=== PATIENT | female | born 1945 | race Two or more races ===

== ENCOUNTER → 2016-12-07 | Emergency (ER) | payer OTHER ==
[~2016-12-07] MED LIST: ONDANSETRON 4 MG/2 ML VIAL IVPUSH ONE; ONDANSETRON 4 MG/2 ML VIAL ONE; PANTOPRAZOLE 40 MG TABLET (FP) ONE; PANTOPRAZOLE 40 MG TABLET (FP) PO ONE; SODIUM CHLORIDE 0.9% 1000 ML INFUS.BAG IV ONE
[2016-12-07 09:46] VITALS: BMI 36.0
[2016-12-07 09:57] LABS: BASOPHIL 0.6 % (0-2.0); EOSINOPHIL 4.7 % (0-4.5); MCH 27.8 pg (25.7-33.7); MCHC 32.6 g/dl (32.0-36.0); MEAN CELL VOLUME 85.1 fl (80-96); MEAN PLT VOLUME 8.3 fl (7.5-11.1); NEUTROPHILS 61.3 % (42.8-82.8); PLATELET COUNT 213 K/MM3 (134-434); RDW 15.6 % (11.6-15.6); WHITE BLOOD COUNT 5.9 K/mm3 (4.0-10.0)
[2016-12-07 10:22] LABS: URINE APPEARANCE CLEAR; URINE BILIRUBIN NEGATIVE (NEGATIVE); URINE BLOOD NEGATIVE (NEGATIVE); URINE COLOR YELLOW; URINE GLUCOSE (UA) NEGATIVE (NEGATIVE); URINE KETONE NEGATIVE (NEGATIVE); URINE LEUK ESTERASE NEGATIVE (NEGATIVE); URINE NITRITE NEGATIVE (NEGATIVE); URINE PROTEIN NEGATIVE (NEGATIVE); URINE UROBILINOGEN NEGATIVE E.U./dl (0.2-1.0)
[2016-12-07 10:30] LABS: ALBUMIN 3.3 g/dl (3.4-5.0); ANION GAP 8 (8-16); CALCIUM 8.5 mg/dL (8.5-10.1); CO2 28 mmol/L (21-32); GLUCOSE,RANDOM 109 mg/dL (74-106); SGOT/AST 20 U/L (15-37); SGPT/ALT 18 U/L (12-78)
--- NOTE | 2016-12-07 10:31 | PDOC ---
History of Present Illness - General Chief Complaint: Pain Stated Complaint: ABD PAIN Time Seen by Provider: 12/07/16 10:13 - History of Present Illness Initial Comments: 12/07/16 10:49 Patient is a 71-year-old female with past medical history of non-insulin- dependent diabetes, hypertension, hyperlipidemia, GERD, depression, insomnia, history of arrhythmia on Eliquis, s/p gastric bypass surgery, who presents to the emergency department today complaining of abdominal pain and diarrhea. Patient states that she had diarrhea starting approximately 2 weeks ago. She then traveled to the [facility] and returned on Monday. She states that she is still having dark diarrhea and describes it as black in nature. Admits to nausea, cramping pain, decreased appetite. Denies fevers, chills, weakness, malaise, shortness of breath, chest pain, palpitations, dysuria and hematuria. Past History - Travel Traveled outside of the country in the last 30 days: Yes If so, where?: [facility] Close contact w/someone who was outside of country & ill: No - Past Medical History Allergies/Adverse Reactions: Allergies Allergy/AdvReac Type Severity Reaction Status Date / Time morphine Allergy Intermediate Hives Verified 12/07/16 09:46 Home Medications: Ambulatory Orders Metoprolol Tartrate [Lopressor -] 50 mg PO BID 09/13/12 Omeprazole [Prilosec (RX)] 20 mg PO DAILY 09/13/12 Zolpidem Tartrate [Ambien] 10 mg PO HS 09/13/12 Citalopram Hydrobromide [Celexa -] 10 mg PO DAILY 02/05/14 Amlodipine/Valsartan [Exforge 10-320 mg Tablet] 1 tab PO DAILY 06/22/14 Atorvastatin Ca [Lipitor] 20 mg PO HS 06/22/14 Calcium Carbonate/Vitamin D3 [Calcium 500 + Vit D 200 Tablet] 1 each PO DAILY Multivitamins [Multivit ([facility] Formulary)] 1 tab PO DAILY 09/26/14 Apixaban [Eliquis] 5 mg PO BID 02/13/15 Donepezil HCl [Aricept] 10 mg PO HS 02/13/15 Gabapentin [Neurontin] 300 mg PO TID 02/13/15 Cyanocobalamin [Vitamin B12 -] 1,000 mcg PO WEEKLY 03/07/15 Ergocalciferol (Vitamin D2) [Vitamin D] 50,000 unit PO WEEKLY 03/07/15 Acetaminophen [Tylenol] 325 mg PO QID PRN 04/05/16 Sitagliptin Phos/Metformin HCl [Janumet 50-500 mg Tablet] 1 each PO BID Ondansetron [Ondansetron Odt] 4 mg PO Q6H #10 tab.rapdis 12/07/16 Anemia: Yes (MANY YRS AGO) Asthma: Yes (CONTROLLED) Cancer: No Cardiac Disorders: Yes (H/O ARRHYTHMIA?) CVA: Yes (X 2 MANY YRS AGO) COPD: No CHF: No Dementia: No (ON ARICEPT FOR PREVENTION) Diabetes: Yes (X 4-5 YRS) GI Disorders: Yes (GERD) Disorders: No HTN: Yes Hypercholesterolemia: Yes Liver Disease: No Psychiatric Problems: Yes (depression,insomnia) Seizures: No Thyroid Disease: No - Surgical History Abdominal Surgery: Yes (GASTRIC BYPASS) Appendectomy: Yes Cardiac Surgery: Yes Cholecystectomy: Yes Lung Surgery: No Neurologic Surgery: No Orthopedic Surgery: Yes (RIGHT FOOT SURGERY) - Immunization History Immunization Up to Date: Yes - Psycho/Social/Smoking Cessation Hx Anxiety: No Suicidal Ideation: No Smoking Status: No Smoking History: Never smoked Have you smoked in the past 12 months: No Number of Cigarettes Smoked Daily: 0 Hx Alcohol Use: No Drug/Substance Use Hx: No Substance Use Type: None Hx Substance Use Treatment: No Review of Systems - Review of Systems Able to Perform ROS?: Yes Is the patient limited French proficient: Yes Constitutional: No: Chills, Fever, Malaise, Weakness Respiratory: No: Cough, Shortness of Breath, Wheezing Cardiac (ROS): No: Chest Pain, Lightheadedness, Palpitations ABD/GI: Yes: Abdominal Distended, Diarrhea (dark stool), Nausea, Poor Fluid Intake, Abdominal cramping, Tarry Stools. No: Vomiting : Yes: Frequency. No: Dysuria, Discharge, Hematuria Neurological: No: Headache, Weakness, Unsteady Gait, Dizziness All Other Systems: Reviewed and Negative *Physical Exam - Vital Signs Last Vital Signs Temp Pulse Resp BP Pulse Ox 98.2 F 69 20 150/72 95 12/07/16 09:53 12/07/16 09:45 12/07/16 09:45 12/07/16 09:45 12/07/16 09:45 - Physical Exam General Appearance: Yes: Nourished, Appropriately Dressed, Obese, Other ( sitting on exam bed, AAOx3, breathing easily). No: Apparent Distress Neck: positive: Trachea midline, Supple. negative: Tender, Rigid Respiratory/Chest: positive: Lungs Clear, Normal Breath Sounds. negative: Respiratory Distress, Accessory Muscle Use Cardiovascular: positive: S1, S2 (present), Murmur (2/6 midsystolic murmur loudest at the base), Irregularly Irregular. negative: JVD Gastrointestinal/Abdominal: positive: Tender (TTP LLQ, epigastrium), Soft, Decreased BS, Distended. negative: Organomegaly, Guarding, Rebound Rectal Exam: positive: hemorrhoids (external hemorrhoids) Integumentary: positive: Normal Color, Dry, Warm Neurologic: positive: field education coordinator II-XII NML intact, Fully Oriented, Alert, Normal Mood/ Affect, Normal Response, Motor Strength 09/30 ED Treatment Course - LABORATORY CBC & Chemistry Diagram: 12/07/16 09:50 12/07/16 09:50 - ADDITIONAL ORDERS Additional order review: 12/07/16 09:50 RBC 4.59 MCV 85.1 MCHC 32.6 RDW 15.6 MPV 8.3 Neutrophils % 61.3 Lymphocytes % 26.4 Monocytes % 7.0 Eosinophils % 4.7 H Basophils % 0.6 - Medications Given in the ED: ED Medications Discontinued Medications Generic Name Dose Route Start Last Admin Trade Name Freq PRN Reason Stop Dose Admin Ondansetron HCl 4 mg 12/07/16 09:48 12/07/16 09:55 Zofran Injection IVPUSH 12/07/16 09:49 4 mg NOW ONE Administration Sodium Chloride 1,000 ml 12/07/16 09:48 12/07/16 09:55 Normal Saline - IV 12/07/16 09:49 1,000 ml NOW ONE Administration Medical Decision Making - Medical Decision Making 12/07/16 10:21 Patient is a 71-year-old female with past medical history of non-insulin- dependent diabetes, hypertension, hyperlipidemia, GERD, depression, insomnia, history of arrhythmia on [place] questions, who presents to the emergency department today complaining of abdominal pain and diarrhea. Possible dx include , diverticulitis, gastritis, PUD, travelers diarrhea, viral syndrome 1. CBC, CMP, Lipase, UA, UC 2. EKG 3. Guiac for report of black tarry stool 4. CT with contrast 5. IV fluids, Zofran Re-evaluate 12/07/16 11:09 CT abdomen and pelvis with contrast: No evidence of diverticulitis or acute pathology within the abdomen or pelvis. There is diverticulosis of the colon. 12/07/16 12:38 Patient states that she feels better after the Zofran. All of her lab work is within normal limits. Urine is negative. Troponin was added on which is negative. Most likely this is traveler's diarrhea we will discharge home at this time. Patient is instructed to see a bland diet and follow-up with her primary care doctor tomorrow. She was prescribed Zofran as needed for nausea. Patient understands all discharge instructions and all questions were answered at this time. *DC/Admit/Observation/Transfer Diagnosis at time of Disposition: Travelers' diarrhea - Discharge Dispostion Admit: No - Prescriptions Prescriptions: Ondansetron [Ondansetron Odt] 4 mg PO Q6H #10 tab.rapdis - Referrals Referrals: Yomaira Hernandez MD [Primary Care Provider] - 24 hours - Patient Instructions Printed Discharge Instructions: DI for Diarrhea and Traveler's Diarrhea -- Adult Additional Instructions: Usted tiene diarrea del viajero. [place] puede ocurrir despus de viajar a un pas extranjero. [place] TAC fue negativo hoy. Livia muchos lquidos leora y gatorade. Coma jin dieta suave, incluyendo salsa de manzana de pltanos, arroz y tostadas. Usted puede seb tylenol o motrin segn sea necesario para el dolor. Siga con murray mdico de atencin primaria maana. Vuelva a la [place] si tiene empeoramiento de dolor, fiebre, escalofros, bishnu en las heces, vmitos, o cualquier cambio en bharat sntomas. Print Language: FRENCH Addendum entered and electronically signed by Sharlene Head PA 12/07/16 18: 45: Progress Note - Progress Note Progress Note: EKG: Atrial fibrillation with a rate of 77 bpm, QT 394, Normal axis. T wave inversions in I and AVL no acute ST-T wave elevations
[2016-12-07 10:32] LABS: ALK PHOS 127 U/L (45-117); TOT PROT 6.6 g/dl (6.4-8.2)
[2016-12-07 11:10] LABS: INR 1.04 (0.82-1.09); PROTHROMBIN TIME (PATIENT) 11.5 SEC (9.98-11.88)
--- NOTE | 2016-12-07 11:50 | EKG ---
Test Reason : Blood Pressure : / mmHG Vent. Rate : 077 BPM Atrial Rate : 100 BPM P-R Int : 000 ms QRS Dur : 098 ms QT Int : 394 ms P-R-T Axes : 000 -09 166 degrees QTc Int : 445 ms ATRIAL FLUTTER WITH VARIABLE A-V BLOCK VOLTAGE CRITERIA FOR LEFT VENTRICULAR HYPERTROPHY MARKED ST ABNORMALITY, POSSIBLE INFERIOR SUBENDOCARDIAL INJURY ABNORMAL ECG WHEN COMPARED WITH ECG OF 12-DEC-2015 01:19, Confirmed by ORESTES GRECO MD ([id number]) on 12/07/2016 11:50:02 AM Referred By: Confirmed By:ORESTES GRECO MD
[2016-12-07 12:55] VITALS: BP 130/70; PULSE 82; TEMP 98.3
--- NOTE | 2016-12-07 12:55 | PDOC ---
*Physical Exam - Vital Signs Last Vital Signs Temp Pulse Resp BP Pulse Ox 98.2 F 69 20 150/72 95 12/07/16 09:53 12/07/16 09:45 12/07/16 09:45 12/07/16 09:45 12/07/16 09:45 Heart Score/ECG Review #1 ECG reviewed & interpreted by me at: 12:55 12/07/16 12:55 Twelve-lead EKG was performed and reviewed by me. Afib rate of 77 bpm. The axis is normal. The intervals are normal. There are no ST elevations or depressions. T wave inversions I, aVL. t wave flattening v4-v6 ED Treatment Course - LABORATORY CBC & Chemistry Diagram: 12/07/16 09:50 12/07/16 09:50 - ADDITIONAL ORDERS Additional order review: Laboratory Results 12/07/16 12/07/16 12/07/16 10:32 10:00 09:50 INR Sodium 142 Potassium 4.2 Chloride 106 Carbon Dioxide 28 Anion Gap 8 BUN 11 D Creatinine 1.0 Creat Clearance w eGFR 54.97 Random Glucose 109 H Calcium 8.5 Total Bilirubin 1.0 D AST 20 ALT 18 Alkaline Phosphatase 127 H D Total Protein 6.6 Albumin 3.3 L Lipase 74 Urine Color Yellow Urine Appearance Clear Urine pH 6.0 Urine Protein Negative Urine Glucose (UA) Negative Urine Ketones Negative Urine Blood Negative Urine Nitrite Negative Urine Bilirubin Negative Urine Urobilinogen Negative Ur Leukocyte Esterase Negative Stool Occult Blood Negative 12/07/16 09:50 INR 1.04 Sodium Potassium Chloride Carbon Dioxide Anion Gap BUN Creatinine Creat Clearance w eGFR Random Glucose Calcium Total Bilirubin AST ALT Alkaline Phosphatase Total Protein Albumin Lipase Urine Color Urine Appearance Urine pH Urine Protein Urine Glucose (UA) Urine Ketones Urine Blood Urine Nitrite Urine Bilirubin Urine Urobilinogen Ur Leukocyte Esterase Stool Occult Blood 12/07/16 09:50 RBC 4.59 MCV 85.1 MCHC 32.6 RDW 15.6 MPV 8.3 Neutrophils % 61.3 Lymphocytes % 26.4 Monocytes % 7.0 Eosinophils % 4.7 H Basophils % 0.6 - Medications Given in the ED: ED Medications Discontinued Medications Generic Name Dose Route Start Last Admin Trade Name Freq PRN Reason Stop Dose Admin Ondansetron HCl 4 mg 12/07/16 09:48 12/07/16 09:55 Zofran Injection IVPUSH 12/07/16 09:49 4 mg NOW ONE Administration Pantoprazole Sodium 40 mg 12/07/16 12:43 12/07/16 12:45 Protonix - PO 12/07/16 12:44 40 mg ONCE ONE Administration Sodium Chloride 1,000 ml 12/07/16 09:48 12/07/16 09:55 Normal Saline - IV 12/07/16 09:49 1,000 ml NOW ONE Administration Medical Decision Making - Medical Decision Making 12/07/16 12:54 79 yo F h/o afib, gastric bypass presenting to the ER with a complaint of abdominal pain, diarrhea, dark stools Laboratory Tests 12/07/16 12/07/16 12/07/16 09:50 09:50 10:32 Hgb 12.7 Hct 39.1 BUN 11 D Creatinine 1.0 Stool Occult Blood Negative Pt seen by Midlevel Provider under my direct supervision Pt interviewed and examined Ancillary studies reviewed I agree with plan as outlined by Midlevel Provider 12/07/16 12:55 12/07/16 13:23 EKG with t lateral T wave inversions No trop done Trop added Pt was already discharged Will contact patient once Troponin is added on *DC/Admit/Observation/Transfer Diagnosis at time of Disposition: Travelers' diarrhea - Prescriptions Prescriptions: Ondansetron [Ondansetron Odt] 4 mg PO Q6H #10 tab.rapdis - Referrals Referrals: Yomaira Hernandez MD [Primary Care Provider] - 24 hours - Patient Instructions Printed Discharge Instructions: DI for Diarrhea and Traveler's Diarrhea -- Adult Additional Instructions: Usted tiene diarrea del viajero. [place] puede ocurrir despus de viajar a un pas extranjero. [place] TAC fue negativo hoy. Livia muchos lquidos leora y gatorade. Coma jin dieta suave, incluyendo salsa de manzana de pltanos, arroz y tostadas. Usted puede seb tylenol o motrin segn sea necesario para el dolor. Siga con murray mdico de atencin primaria maana. Vuelva a la [place] si tiene empeoramiento de dolor, fiebre, escalofros, bishnu en las heces, vmitos, o cualquier cambio en bharat sntomas. Print Language: FAROESE - Post Discharge Activity
[2016-12-07 14:02] LABS: TROPONIN I < 0.02 ng/ml (0.00-0.05)
== END | disposition home or self-care (01) ==
LOC: JER 09:36
PROC: 3E033GC Introduction of Other Therapeutic Substance into Peripheral Vein, Percutaneous Approach (ICD-10-PCS; principal; 2016-12-07)
PROC: 3E0337Z Introduction of Electrolytic and Water Balance Substance into Peripheral Vein, Percutaneous Approach (ICD-10-PCS; 2016-12-07)
DX: A08.8 Other specified intestinal infections (principal); Z98.84 Bariatric surgery status; E11.9 Type 2 diabetes mellitus without complications; I10 Essential (primary) hypertension; E78.5 Hyperlipidemia, unspecified; K21.9 Gastro-esophageal reflux disease without esophagitis; F32.9 Major depressive disorder, single episode, unspecified; I49.9 Cardiac arrhythmia, unspecified; Z79.01 Long term (current) use of anticoagulants
CPT/HCPCS: 36415; 74177-TC; 80053; 81003; 82272; 82550; 83690; 84484; 85025; 85610; 87086; 93005; 93010; 96361; 96374; 99284-25

== ENCOUNTER 2017-11-02 20:07 | Inpatient (IN) | payer OTHER ==
--- NOTE | 2017-11-02 22:27 | PDOC ---
History of Present Illness - General Chief Complaint: Cold Symptoms Stated Complaint: CHEST CONGESTION, TIREDNESS Time Seen by Provider: 11/02/17 20:36 - History of Present Illness Initial Comments: This 72-year-old woman with a history of atrial fibrillation, DM, HTN, HLD, GERD presents with several hour history of shortness of breath/chest pressure. Patient speaks mainly Singaporean and her daughter is her stain applicator: Daughter states that approximately 6 PM today, the patient had onset of symptoms while at rest. She denies cough or measured fever, although she had "chills" throughout the evening. No history of increased leg edema or pain. No recent immobilization/prolonged trip/surgery. Patient has been taking her medications as prescribed. Daughter states that she has been recently seen by her land inspector (Dr. Hodge/[facility] cardiology) during which she believes her mother had echocardiogram which was normal. No history of MT. 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 Past History - Past Medical History Allergies/Adverse Reactions: Allergies Allergy/AdvReac Type Severity Reaction Status Date / Time morphine Allergy Intermediate Hives Verified 12/07/16 09:46 Home Medications: Ambulatory Orders Metoprolol Tartrate [Lopressor -] 50 mg PO BID 09/13/12 Zolpidem Tartrate [Ambien] 10 mg PO HS 09/13/12 Atorvastatin Ca [Lipitor] 20 mg PO HS 06/22/14 Apixaban [Eliquis] 5 mg PO BID 02/13/15 Donepezil HCl [Aricept] 10 mg PO HS 02/13/15 Ergocalciferol (Vitamin D2) [Vitamin D] 50,000 unit PO WEEKLY 03/07/15 Acetaminophen [Tylenol] 325 mg PO QID PRN 04/05/16 Donepezil HCl [Aricept] 10 mg PO DAILY 11/02/17 Linagliptin/Metformin HCl [Jentadueto 2.5 mg-500 mg Tab] 1 each PO DAILY Loratadine [Claritin] 10 mg PO DAILY 11/02/17 Ranitidine HCl [Zantac] 150 mg PO DAILY 11/02/17 Anemia: Yes (MANY YRS AGO) Asthma: Yes (CONTROLLED) Cancer: No Cardiac Disorders: Yes (H/O ARRHYTHMIA?) CVA: Yes (X 2 MANY YRS AGO) COPD: No CHF: No Dementia: No (ON ARICEPT FOR PREVENTION) Diabetes: Yes (X 4-5 YRS) GI Disorders: Yes (GERD) Disorders: No HTN: Yes Hypercholesterolemia: Yes Liver Disease: No Psychiatric Problems: Yes (depression,insomnia) Seizures: No Thyroid Disease: No - Surgical History Abdominal Surgery: Yes (GASTRIC BYPASS) Appendectomy: Yes Cardiac Surgery: Yes Cholecystectomy: Yes Lung Surgery: No Neurologic Surgery: No Orthopedic Surgery: Yes (RIGHT FOOT SURGERY) - Immunization History Immunization Up to Date: Yes - Suicide/Smoking/Psychosocial Hx Smoking Status: No Smoking History: Never smoked Have you smoked in the past 12 months: No Number of Cigarettes Smoked Daily: 0 Hx Alcohol Use: No Drug/Substance Use Hx: No Substance Use Type: None Hx Substance Use Treatment: No Review of Systems - Review of Systems Able to Perform ROS?: Yes Comments:: 12 point review of systems is negative except for what is noted in the history of present illness *Physical Exam - Vital Signs Last Vital Signs Temp Pulse Resp BP Pulse Ox 98.3 F 75 16 156/66 95 11/02/17 20:28 11/02/17 20:28 11/02/17 20:28 11/02/17 20:28 11/02/17 20:28 - Physical Exam Comments: GENERAL: Elderly female, Singaporean-speaking; appearing mildly tachypneic but speaking in full sentences HEAD: Normal with no signs of trauma. EYES: PERRLA, EOMI, sclera anicteric, conjunctiva clear. ENT: Ears normal, nares patent, oropharynx clear without exudates. Dry mucous membranes. NECK: Normal range of motion, supple without lymphadenopathy, JVD, or masses. LUNGS: Breath sounds equal, clear to auscultation bilaterally. Bilateral scattered crackles; no wheezes or rhonchi HEART: Irregularly irregular rhythm, normal S1/S2, 3/6 holosystolic murmur ABDOMEN:.normal bowel sounds No guarding,tenderness or rebound.No masses No distention. EXTREMITIES: Normal range of motion, 1+ edema bilateral ankles. . No erythema, or tenderness. NEUROLOGICAL: Cranial nerves II through XII grossly intact. Normal speech. No focal neurological deficits. MUSCULOSKELETAL: Back non-tender to palpation, no CVA tenderness SKIN: Warm, Dry, normal turgor, no rashes or lesions noted. Portable chest x-ray is performed and interpreted by me: Cardiomegaly is present with increased vascular markings; no clear evidence of infiltrate or effusion 12-lead electrocardiogram performed and interpreted by me: Atrial fibrillation at 60 bpm; wave forms are essentially unchanged from previous tracing dated 12/07. ED Treatment Course - LABORATORY CBC & Chemistry Diagram: 11/02/17 22:50 11/02/17 22:54 Medical Decision Making - Medical Decision Making 11/03/17 00:51 This 72-year-old woman with history of multiple medical problems including A. fib/HTN/DM presents with several hour history of chest pressure/shortness of breath. Exam notable for normal temp/95% saturation O2 on room air , bilateral scattered rales without other abnormal auscultatory findings. There is no discrete infiltrate or effusion on portable chest x-ray. There is some increase in vascular markings consistent with congestion. Laboratory evaluation notable for white blood cell count of 14,100 with predominance of neutrophils and bandemia (18%). Blood cultures/lactic acid drawn. Source of elevated white blood cell count is unclear in light of absence of cough/fever and no clear infiltrate on chest x- ray. Urinalysis is normal and patient has no other symptoms pointing to source of infection. BNP is 3241. In light of symptoms and chest x-ray findings, 40 mg of Lasix IV ordered. Troponin is not elevated. Given patient's history of chest pressure and current risk factors, patient will be admitted for full rule out of MT and further management of shortness of breath. 11/03/17 02:04 Case discussed with DEENA Grimes. Patient admitted to [facility] under observation status. admitting *DC/Admit/Observation/Transfer Diagnosis at time of Disposition: CHF (congestive heart failure) Qualifiers: Heart failure type: unspecified Heart failure chronicity: acute Qualified Code( s): I50.9 - Heart failure, unspecified - Discharge Dispostion Condition at time of disposition: Stable Decision to Admit order: Yes - Referrals - Patient Instructions - Post Discharge Activity
[2017-11-02 23:01] LABS: HEMATOCRIT 41.3 % (32.4-45.2); HEMOGLOBIN 13.6 GM/dl (10.7-15.3); MCH 28.6 pg (25.7-33.7); MCHC 32.8 g/dl (32.0-36.0); MEAN PLT VOLUME 8.4 fl (7.5-11.1); PLATELET COUNT 203 K/MM3 (134-434); RBC 4.75 M/mm3 (3.60-5.2); WHITE BLOOD COUNT 14.2 K/mm3 (4.0-10.8)
[2017-11-02 23:01] LABS: PH,URINE 5.5 (4.5-8); URINE APPEARANCE Clear; URINE BILIRUBIN Negative (NEGATIVE); URINE BLOOD Negative (NEGATIVE); URINE COLOR YELLOW; URINE GLUCOSE (UA) Negative (NEGATIVE); URINE KETONE Negative (NEGATIVE); URINE LEUK ESTERASE TRACE (NEGATIVE); URINE NITRITE Negative (NEGATIVE); URINE PROTEIN Negative (NEGATIVE)
[2017-11-02] MEDS ORDERED: ACETAMINOPHEN 325 MG TABLET (FP) PO ONE (23:09)
[2017-11-02] MEDS ORDERED: ACETAMINOPHEN 325 MG TABLET (FP) ONE (23:09)
[2017-11-02 23:10] LABS: INR 1.08 (0.82-1.09); PROTHROMBIN TIME (PATIENT) 12.1 SEC (10.2-13.0)
[2017-11-02 23:10] LABS: URINE RBC 0-2 /hpf (0-3)
[2017-11-02 23:16] LABS: ALBUMIN 3.7 g/dl (3.5-5.0); ALK PHOS 122 U/L (32-92); ANION GAP 6 (8-16); BILIRUBIN,TOTAL 0.7 mg/dl (0.2-1.0); BLOOD UREA NITROGEN 19 mg/dl (7-18); CALCIUM 8.2 mg/dl (8.4-10.2); CHLORIDE 104 mmol/L (98-107); CO2 26 mmol/L (22-28); CREATININE 1.1 mg/dl (0.6-1.3); GLUCOSE,RANDOM 121 mg/dl (74-106); POTASSIUM 4.1 mmol/L (3.5-5.1); SGOT/AST 34 U/L (10-42); SGPT/ALT 19 U/L (10-40); SODIUM 136 mmol/L (136-145)
[2017-11-02 23:32] LABS: PLATELET ESTIMATE ADEQUATE
[2017-11-03] MEDS ORDERED: FUROSEMIDE 40 MG/4 ML INJECTABLE VIAL IVPUSH ONE (00:46)
[2017-11-03] MEDS ORDERED: FUROSEMIDE 40 MG/4 ML INJECTABLE VIAL ONE (00:49)
[2017-11-03 02:38] VITALS: BMI 35.4
[2017-11-03] MEDS: ACETAMINOPHEN 325 MG TABLET (FP) PO PRN ×2 (02:53→22:04)
[2017-11-03 04:40] LABS: BASO % 0.2 % (0-2.0); EOS % 0.7 % (0-4.5); HEMATOCRIT 36.5 % (32.4-45.2); MCH 28.9 pg (25.7-33.7); MCHC 32.8 g/dl (32.0-36.0); MEAN PLT VOLUME 9.1 fl (7.5-11.1); MONO % 6.3 % (3.8-10.2); NEUT % 82.8 % (42.8-82.8); PLATELET COUNT 201 K/MM3 (134-434); RBC 4.14 M/mm3 (3.60-5.2); RDW 14.8 % (11.6-15.6); WHITE BLOOD COUNT 15.2 K/mm3 (4.0-10.0)
[2017-11-03 05:00] LABS: ANION GAP 8 (8-16); BLOOD UREA NITROGEN 21 mg/dL (7-18); CHLORIDE 105 mmol/L (98-107); CO2 28 mmol/L (21-32); CREATININE 1.3 mg/dL (0.55-1.02); GLUCOSE,RANDOM 97 mg/dL (74-106); MAGNESIUM 1.8 mg/dL (1.8-2.4); PHOSPHOROUS 3.7 mg/dL (2.5-4.9); POTASSIUM 4.3 mmol/L (3.5-5.1); SODIUM 141 mmol/L (136-145)
[2017-11-03] MEDS: INSULIN SLIDING SCALE (NOVOLOG) 1 VIAL SQ SCH ×3 (06:15→17:02)
--- NOTE | 2017-11-03 07:11 | HP ---
CHIEF COMPLAINT: shortness of breath PCP: Dr de la cruz aemt: Dr. Hodge HISTORY OF PRESENT ILLNESS: is a 72-year-old Vietnamese-speaking obese female, with a past medical history of DM, hypertension, hyperlipidemia, GERD, CVA ( residual right-sided weakness), atrial fibrillation (Eliquis). Patient reports that she developed back pain and shortness of breath within the past 24 hours. Patient does report chills since yesterday evening. She denies any dyspnea on exertion dizziness or chest pain. ER course was notable for: (1)chest x-ray portable:congestive changes (2)WBC 14.2 bandemia 18 (3)urinalyasis trace leukocytes Recent Travel: none PAST MEDICAL HISTORY:see history of present illness PAST SURGICAL HISTORY: gastric bypasss and right foot surgery Social History: resides at home alone Smoking:none Alcohol:none Drugs: none Family History: Allergies morphine Allergy (Intermediate, Verified 12/07/16 09:46) Hives HOME MEDICATIONS: Home Medications Medication Instructions Recorded Metoprolol Tartrate [Lopressor -] 50 mg PO BID 09/13/12 Zolpidem Tartrate [Ambien] 10 mg PO HS 09/13/12 Atorvastatin Ca [Lipitor] 20 mg PO HS 06/22/14 Apixaban [Eliquis] 5 mg PO BID 02/13/15 Donepezil HCl [Aricept] 10 mg PO HS 02/13/15 Ergocalciferol (Vitamin D2) 50,000 unit PO WEEKLY 03/07/15 [Vitamin D] Acetaminophen [Tylenol] 325 mg PO QID PRN 04/05/16 Donepezil HCl [Aricept] 10 mg PO DAILY 11/02/17 Linagliptin/Metformin HCl 1 each PO DAILY 11/02/17 [Jentadueto 2.5 mg-500 mg Tab] Loratadine [Claritin] 10 mg PO DAILY 11/02/17 Ranitidine HCl [Zantac] 150 mg PO DAILY 11/02/17 REVIEW OF SYSTEMS CONSTITUTIONAL: Absent: fever, chills, diaphoresis, generalized weakness, malaise, loss of appetite, weight change HEENT: Absent: rhinorrhea, nasal congestion, throat pain, throat swelling, difficulty swallowing, mouth swelling, ear pain, eye pain, visual changes CARDIOVASCULAR: Absent: chest pain, syncope, palpitations, irregular heart rate, lightheadedness , peripheral edema RESPIRATORY: Absent: cough, shortness of breath, dyspnea with exertion, orthopnea, wheezing, stridor, hemoptysis GASTROINTESTINAL: Absent: abdominal pain, abdominal distension, nausea, vomiting, diarrhea, constipation, melena, hematochezia GENITOURINARY: Absent: dysuria, frequency, urgency, hesitancy, hematuria, flank pain, genital pain MUSCULOSKELETAL: Absent: myalgia, arthralgia, joint swelling, back pain, neck pain SKIN: Absent: rash, itching, pallor HEMATOLOGIC/IMMUNOLOGIC: Absent: easy bleeding, easy bruising, lymphadenopathy, frequent infections ENDOCRINE: Absent: unexplained weight gain, unexplained weight loss, heat intolerance, cold intolerance NEUROLOGIC: Absent: headache, focal weakness or paresthesias, dizziness, unsteady gait, seizure, mental status changes, bladder or bowel incontinence PSYCHIATRIC: Absent: anxiety, depression, suicidal or homicidal ideation, hallucinations. PHYSICAL EXAMINATION Vital Signs - 24 hr 11/02/17 11/03/17 11/03/17 20:28 01:46 06:48 Temperature 98.3 F 97.9 F Pulse Rate 75 52 L 62 Respiratory 16 16 Rate Blood Pressure 156/66 126/54 129/60 O2 Sat by Pulse 95 97 Oximetry (%) GENERAL: Awake, alert, and fully oriented, in no acute distress. HEAD: Normal with no signs of trauma. EYES: Pupils equal, round and reactive to light, extraocular movements intact, sclera anicteric, conjunctiva clear. No lid lag. EARS, NOSE, THROAT: Ears normal, nares patent, oropharynx clear without exudates. Moist mucous membranes. NECK: Normal range of motion, supple without lymphadenopathy, JVD, or masses. LUNGS: Breath sounds equal, crackles to right lower lobe, clear to bilateral apexes, No wheezes. No accessory muscle use. HEART: Regular rate and rhythm, normal S1 and S2 without murmur, rub or gallop. ABDOMEN: Soft, nontender, not distended, normoactive bowel sounds, no guarding, no rebound, no masses. No hepatomegaly or splenomegaly. MUSCULOSKELETAL: Normal range of motion at all joints. No bony deformities or tenderness. No CVA tenderness. UPPER EXTREMITIES: 2+ pulses, warm, well-perfused. No cyanosis. No clubbing. No peripheral edema. LOWER EXTREMITIES: 2+ pulses, warm, well-perfused. No calf tenderness. No peripheral edema. NEUROLOGICAL: Cranial nerves II-XII intact. Normal speech. Normal gait. PSYCHIATRIC: Cooperative. Good eye contact. Appropriate mood and affect. SKIN: Warm, dry, normal turgor, no rashes or lesions noted, normal capillary refill. Laboratory Results - last 24 hr 11/02/17 11/02/17 11/02/17 22:50 22:50 22:54 WBC 14.2 H RBC 4.75 Hgb 13.6 Hct 41.3 MCV 87.0 MCH 28.6 MCHC 32.8 RDW 14.0 Plt Count 203 MPV 8.4 Absolute Neuts (auto) 12.0 Neutrophils % No Result Required. Neutrophils % (Manual) 77.0 Band Neutrophils % 18.0 H Lymphocytes % No Result Required. Lymphocytes % (Manual) 2.0 L Monocytes % Monocytes % (Manual) 2 L Eosinophils % Basophils % Basophils % (Manual) 1.0 Nucleated RBC % Platelet Estimate Adequate PT with INR 12.1 INR 1.08 D-Dimer Sodium 136 Potassium 4.1 Chloride 104 Carbon Dioxide 26 Anion Gap 6 L BUN 19 H Creatinine 1.1 Creat Clearance w eGFR 49.10 POC Glucometer Random Glucose 121 H Lactic Acid Calcium 8.2 L Phosphorus Magnesium Total Bilirubin 0.7 AST 34 ALT 19 Alkaline Phosphatase 122 H Creatine Kinase 69 Troponin I B-Natriuretic Peptide Total Protein 7.0 Albumin 3.7 Urine Color Urine Appearance Urine pH Ur Specific Buckhorn Urine Protein Urine Glucose (UA) Urine Ketones Urine Blood Urine Nitrite Urine Bilirubin Urine Urobilinogen Ur Leukocyte Esterase Urine RBC Urine WBC 11/02/17 11/02/17 11/02/17 22:54 22:54 22:57 WBC RBC Hgb Hct MCV MCH MCHC RDW Plt Count MPV Absolute Neuts (auto) Neutrophils % Neutrophils % (Manual) Band Neutrophils % Lymphocytes % Lymphocytes % (Manual) Monocytes % Monocytes % (Manual) Eosinophils % Basophils % Basophils % (Manual) Nucleated RBC % Platelet Estimate PT with INR INR D-Dimer Sodium Potassium Chloride Carbon Dioxide Anion Gap BUN Creatinine Creat Clearance w eGFR POC Glucometer Random Glucose Lactic Acid Calcium Phosphorus Magnesium Total Bilirubin AST ALT Alkaline Phosphatase Creatine Kinase Troponin I < 0.03 B-Natriuretic Peptide 3421.13 H Total Protein Albumin Urine Color Yellow Urine Appearance Clear Urine pH 5.5 Ur Specific Buckhorn 1.010 Urine Protein Negative Urine Glucose (UA) Negative Urine Ketones Negative Urine Blood Negative Urine Nitrite Negative Urine Bilirubin Negative Urine Urobilinogen 2.0 H Ur Leukocyte Esterase Trace H Urine RBC 0-2 Urine WBC 2-5 11/03/17 11/03/17 11/03/17 00:41 00:41 04:07 WBC RBC Hgb Hct MCV MCH MCHC RDW Plt Count MPV Absolute Neuts (auto) Neutrophils % Neutrophils % (Manual) Band Neutrophils % Lymphocytes % Lymphocytes % (Manual) Monocytes % Monocytes % (Manual) Eosinophils % Basophils % Basophils % (Manual) Nucleated RBC % Platelet Estimate PT with INR INR D-Dimer 229 Sodium Potassium Chloride Carbon Dioxide Anion Gap BUN Creatinine Creat Clearance w eGFR POC Glucometer Random Glucose Lactic Acid 4.1 H* Calcium Phosphorus Magnesium Total Bilirubin AST ALT Alkaline Phosphatase Creatine Kinase 92 Troponin I < 0.02 B-Natriuretic Peptide Total Protein Albumin Urine Color Urine Appearance Urine pH Ur Specific Buckhorn Urine Protein Urine Glucose (UA) Urine Ketones Urine Blood Urine Nitrite Urine Bilirubin Urine Urobilinogen Ur Leukocyte Esterase Urine RBC Urine WBC 11/03/17 11/03/17 11/03/17 04:20 04:20 04:20 WBC 15.2 H D RBC 4.14 Hgb 12.0 Hct 36.5 MCV 88.0 MCH 28.9 MCHC 32.8 RDW 14.8 Plt Count 201 MPV 9.1 Absolute Neuts (auto) 12.6 Neutrophils % 82.8 D Neutrophils % (Manual) Band Neutrophils % Lymphocytes % 10.0 D Lymphocytes % (Manual) Monocytes % 6.3 Monocytes % (Manual) Eosinophils % 0.7 D Basophils % 0.2 Basophils % (Manual) Nucleated RBC % 0 Platelet Estimate PT with INR INR D-Dimer Sodium 141 Potassium 4.3 Chloride 105 Carbon Dioxide 28 Anion Gap 8 BUN 21 H Creatinine 1.3 H Creat Clearance w eGFR POC Glucometer Random Glucose 97 Lactic Acid Calcium 8.0 L Phosphorus 3.7 Magnesium 1.8 Total Bilirubin AST ALT Alkaline Phosphatase Creatine Kinase Troponin I Cancelled B-Natriuretic Peptide Total Protein Albumin Urine Color Urine Appearance Urine pH Ur Specific Buckhorn Urine Protein Urine Glucose (UA) Urine Ketones Urine Blood Urine Nitrite Urine Bilirubin Urine Urobilinogen Ur Leukocyte Esterase Urine RBC Urine WBC 11/03/17 11/03/17 11/03/17 04:20 04:20 06:14 WBC RBC Hgb Hct MCV MCH MCHC RDW Plt Count MPV Absolute Neuts (auto) Neutrophils % Neutrophils % (Manual) Band Neutrophils % Lymphocytes % Lymphocytes % (Manual) Monocytes % Monocytes % (Manual) Eosinophils % Basophils % Basophils % (Manual) Nucleated RBC % Platelet Estimate PT with INR INR D-Dimer Sodium Potassium Chloride Carbon Dioxide Anion Gap BUN Creatinine Creat Clearance w eGFR POC Glucometer 105 Random Glucose Lactic Acid 1.3 Calcium Phosphorus Magnesium Total Bilirubin AST ALT Alkaline Phosphatase Creatine Kinase Cancelled Troponin I B-Natriuretic Peptide Total Protein Albumin Urine Color Urine Appearance Urine pH Ur Specific Buckhorn Urine Protein Urine Glucose (UA) Urine Ketones Urine Blood Urine Nitrite Urine Bilirubin Urine Urobilinogen Ur Leukocyte Esterase Urine RBC Urine WBC ASSESSMENT/PLAN: 1) sepsis secondary to community acquired PNA - repeat chest xray no infiliates or effusion noted, however, crackles noted on exam, will treat empirically with zithromax and rocephin - no leukocytosis noted, febrile tmax 101.9, follow up blood and urine cultures - Dr Mcknight, ID consulted and following 2) pulm Community-acquired pneumonia - continue empiric Rocephin and Zithromax - keep SpO2 above 92% supplemental O2 as needed 3) cardiovascular afib - rate controlled continue lopressor, with continuous telemetry monitoring - Continue eliquis - Elevated BMP patient appears euvolemic on exam strict monitoring of daily weights and intake and output - Patient follows cardiology at [facility] Dr. Hodge message left with office to fax consult note and last echocardiogram - pending echo hypertension - blood pressure at goal, Continue Lopressor, strict monitoring of blood pressure every 4 hours 4) endo DM - pt declines insulin, restart Januvia continue fingersticks before meals and at bedtime - pending hemoglobin a1c f/e/n - low sodium diabetic diet - replete prn ppx -eliquis - physical therapy - scd dispo: pt requires inpatient admission, plan discussed with daughter at bedside. Visit type - Emergency Visit Emergency Visit: Yes ED Registration Date: 11/03/17 Care time: The patient presented to the Emergency Department on the above date and was hospitalized for further evaluation of their emergent condition. - New Patient This patient is new to me today: Yes Date on this admission: 11/03/17 - Critical Care Critical Care patient: No Hospitalist Screening - Colonoscopy Questionnaire Colonoscopy Questionnaire: Colonoscopy Questionnaire - Patient: 50 - 75 years old and never had a screening colonoscopy: No History of colon or rectal polyps, or CA: No History of IBD, Crohn's disease or UC: No History of abdominal radiation therapy as a child: No - Relative: 1 with colon or rectal CA, or polyps at age 60 or younger: No Colon or rectal CA diagnosed at age 45 or younger: No Multiple relatives with colon or rectal CA: No - Outcome: Screening Result: Negative Screen
[2017-11-03] MEDS ORDERED: ACETAMINOPHEN 1000 MG/100 ML VIAL (NON FORMULARY) IVPB ONE (09:15)
[2017-11-03] MEDS ORDERED: PT OWN MED DRAWER 7, Y5N ONE (09:43)
[2017-11-03] MEDS ORDERED: ERGOCALCIFEROL (VITAMIN D2) 50,000 UNIT CAPSULE (FP) PO SCH (10:00)
[2017-11-03] MEDS: LACTOBACILLUS ACIDOPHILUS 1 TABLET PO SCH (10:02)
[2017-11-03] MEDS: APIXABAN 5 MG TABLET PO SCH ×2 (10:04→21:20)
[2017-11-03] MEDS: METOPROLOL TARTRATE 50 MG TABLET (FP) PO SCH ×2 (10:04→21:19)
[2017-11-03] MEDS: LORATADINE 10 MG TABLET PO SCH (10:05)
[2017-11-03] MEDS: RANITIDINE HCL 150 MG TABLET (FP) PO SCH (10:05)
[2017-11-03] MEDS: CEFTRIAXONE 2 GM/100 ML BAG IVPB SCH (10:05)
--- NOTE | 2017-11-03 10:20 | PN ---
Progress Note (short form) - Note Progress Note: ID Consult dictated 72 y/o diabetic female admitted with dyspnea, chest pressure. Febrile 101.9 WBC 15K Possible community acquired v atypical pneumonia ? Viral syndrome Await c/s Influenza swab Sputum c/s Legionella/ pneumococcal ag Empiric ceftriaxone/ zithromax
--- NOTE | 2017-11-03 10:30 | EKG ---
Test Reason : Blood Pressure : / mmHG Vent. Rate : 060 BPM Atrial Rate : 073 BPM P-R Int : 000 ms QRS Dur : 096 ms QT Int : 442 ms P-R-T Axes : 000 018 140 degrees QTc Int : 442 ms ATRIAL FIBRILLATION ABNORMAL ECG WHEN COMPARED WITH ECG OF 07-DEC-2016 09:46, NO SIGNIFICANT CHANGE WAS FOUND Confirmed by KEELEY LAIRD MD ([id number]) on 11/03/2017 10:30:22 AM Referred By: DR DYE Confirmed By:KEELEY LAIRD MD
--- NOTE | 2017-11-03 10:50 | CONS ---
DATE OF CONSULTATION: DATE OF DICTATION: 11/03/2017 HISTORY OF PRESENT ILLNESS: The patient is a 72-year-old female who is evaluated for fever. She was admitted to the hospital on November 02, 2017, with abrupt onset of shortness of breath and chest pressure. According to the note she had developed shortness of breath and chest discomfort while at rest at approximately 6:15 p.m. on the day of admission. She presented to the emergency room where she was noted to have chills and an elevated white blood cell count . She was admitted to the floor. Her course has now been complicated by fever to 101.9. She complains of profound weakness. She has had loose bowel movements. She denies any cough, sputum production or hemoptysis. No complaints of dysuria or hematuria. PAST MEDICAL HISTORY: Positive for diabetes mellitus, hypertension, atrial fibrillation, hyperlipidemia, gastroesophageal reflux, history of previous stroke with right hemiparesis. ALLERGIES: MORPHINE. MEDICATIONS: Lopressor; Ambien; Lipitor; Eliquis; Aricept; Zantac. SOCIAL HISTORY: She is Yi speaking. She is a nonsmoker, nondrinker. Lives at home. SYSTEMS REVIEW:Neurologic: No loss of consciousness, seizure activity, focal weakness. Cardiac: As per HPI. Respiratory: As per HPI. Gastrointestinal: Positive for loose bowel movements. Genitourinary: Negative for urinary tract infection. LABORATORY DATA: White blood cell count 15.2 with left shift, hematocrit 36.5, platelet count 201. BUN 21, creatinine 1.3. Urinalysis: White cells 2 to 5. Blood cultures pending. Chest x-ray shows some increased markings at the right base. PHYSICAL EXAMINATION:General: She is awake, out of bed in chair, not acutely toxic appearing, in no acute respiratory distress. Vital Signs: Temperature 97.2, blood pressure 126/54, pulse 62, regular, respirations 16 per minute. HEENT: The sclerae are anicteric. Cardiac: Heart sounds S1, S2 irregular with 2/6 pansystolic murmur. Lungs: Crepitation at the bases bilaterally, right greater than left. Abdomen: Obese, soft, nontender. Extremities: Edema 1+. IMPRESSION: A 72-year-old diabetic female admitted with dyspnea, chest pressure, now with fever to 101.9, white blood cell count 15,000 with left shift. 1. Possible community-acquired versus atypical pneumonia. 2. Rule out viral syndrome. RECOMMENDATIONS: Await cultures. Obtain influenza swab, sputum culture, urine Legionella and pneumococcal antigens. Empiric antibiotic coverage with ceftriaxone and Zithromax pending cultures. Will follow. Thank you for the kind referral. KEELEY MIGUEL M.D. [id number]
[2017-11-03 11:41] LABS: HEMOGLOBIN 11.9 GM/dl (10.7-15.3); MCH 29.1 pg (25.7-33.7); MCHC 33.1 g/dl (32.0-36.0); MEAN PLT VOLUME 8.7 fl (7.5-11.1); PLATELET COUNT 195 K/MM3 (134-434); RBC 4.09 M/mm3 (3.60-5.2); WHITE BLOOD COUNT 14.3 K/mm3 (4.0-10.8)
[2017-11-03] MEDS ORDERED: PATIENT'S OWN MEDICATION (NON-FORMULARY) (Linagliptin/Metformin Hcl [Jentadueto 2.5 Mg-500 PO SCH (11:45)
[2017-11-03 11:49] LABS: ALBUMIN 3.1 g/dl (3.5-5.0); ALK PHOS 87 U/L (32-92); ANION GAP 7 (8-16); BILIRUBIN,TOTAL 0.5 mg/dl (0.2-1.0); BLOOD UREA NITROGEN 20 mg/dl (7-18); CALCIUM 7.6 mg/dl (8.4-10.2); CHLORIDE 99 mmol/L (98-107); CO2 27 mmol/L (22-28); CREATININE 1.3 mg/dl (0.6-1.3); GLUCOSE,RANDOM 181 mg/dl (74-106); MAGNESIUM 1.7 mg/dL (1.8-2.4); POTASSIUM 3.6 mmol/L (3.5-5.1); SGOT/AST 28 U/L (10-42); SGPT/ALT 14 U/L (10-40); SODIUM 133 mmol/L (136-145); TOT PROT 6.2 g/dl (6.4-8.3)
[2017-11-03] MEDS ORDERED: MAGNESIUM SULFATE IN WATER 2 GM/50 ML IVPB IVPB ONE (12:30)
[2017-11-03 12:45] LABS: ADD RBC MORPHOLOGY YES
[2017-11-03 12:49] LABS: PLATELET ESTIMATE ADEQUATE
[2017-11-03] MEDS ORDERED: POTASSIUM CHLORIDE TABS 20 MEQ TABLET.ER (FP) PO ONE (13:00)
[2017-11-03] MEDS: sitaGLIPtin PHOSPHATE 50 MG TABLET PO SCH (13:21)
[2017-11-03] MEDS: metFORMIN HCL 500 MG TABLET (FP) PO SCH (13:21)
[2017-11-03] MEDS ORDERED: ONDANSETRON *ODT* 4 MG TABLET SL PRN (13:46)
[2017-11-03 14:40] VITALS: PULSE 53
[2017-11-03] MEDS ORDERED: ZOLPIDEM TARTRATE 5 MG TABLET PO PRN (22:00)
[2017-11-03] MEDS ORDERED: INSULIN SLIDING SCALE (NOVOLOG) 1 VIAL SQ SCH (22:00)
[2017-11-03] MEDS ORDERED: ATORVASTATIN CA 20 MG TABLET (FP) PO SCH (22:00)
[2017-11-03] MEDS ORDERED: DONEPEZIL HCL 10 MG TABLET (FP) PO SCH (22:00)
[2017-11-03] MEDS ORDERED: AZITHROMYCIN IVPB 250 ML IVPB ONE (22:19)
[2017-11-04] MEDS: INSULIN SLIDING SCALE (NOVOLOG) 1 VIAL SQ SCH ×2 (06:38→12:45)
[2017-11-04] MEDS: sitaGLIPtin PHOSPHATE 50 MG TABLET PO SCH (06:50)
[2017-11-04] MEDS: metFORMIN HCL 500 MG TABLET (FP) PO SCH (06:50)
[2017-11-04 07:11] VITALS: BP 128/99; TEMP 97.8
--- NOTE | 2017-11-04 08:55 | PN ---
Progress Note, Physician History of Present Illness: Awake, alert Seated in bed Feeling well Offers no complaints No c/o chest pain / dyspnea / cough Temps down. Afebrile WBC remains slightly elevated Cultures no growth - Current Medication List Current Medications: Active Medications Acetaminophen (Tylenol -) 650 mg PO Q6H PRN PRN Reason: PAIN 1-5 OR FEVER Last Admin: 11/03/17 22:04 Dose: 650 mg Apixaban (Eliquis -) 5 mg PO BID [facility] Last Admin: 11/03/17 21:20 Dose: 5 mg Atorvastatin Calcium (Lipitor -) 20 mg PO HS [facility] Last Admin: 11/03/17 21:20 Dose: 20 mg Donepezil HCl (Aricept -) 10 mg PO HS [facility] Last Admin: 11/03/17 21:20 Dose: 10 mg Ergocalciferol (Drisdol -) 50,000 unit PO Fr@1000 [facility] Last Admin: 11/03/17 10:03 Dose: 50,000 unit Ceftriaxone Sodium (Rocephin 2gm Ivpb (Pre-Docked)) 2 gm in 100 mls @ 200 mls/ hr IVPB DAILY [facility]; Protocol Last Admin: 11/03/17 10:05 Dose: 200 mls/hr Insulin Aspart (Novolog Vial Sliding Scale -) 1 vial SQ HS [facility]; Protocol Last Admin: 11/03/17 22:10 Dose: Not Given Insulin Aspart (Novolog Vial Sliding Scale -) 1 vial SQ TIDAC [facility]; Protocol Last Admin: 11/04/17 06:38 Dose: Not Given Lactobacillus Acidophilus (Bacid -) 1 tab PO DAILY [facility] Last Admin: 11/03/17 10:02 Dose: 1 tab Loratadine (Claritin -) 10 mg PO DAILY [facility] Last Admin: 11/03/17 10:05 Dose: 10 mg Metformin HCl (Glucophage -) 500 mg PO ACBK [facility] Last Admin: 11/04/17 06:50 Dose: 500 mg Metoprolol Tartrate (Lopressor -) 50 mg PO BID [facility] Last Admin: 11/03/17 21:19 Dose: 50 mg Ondansetron HCl (Zofran Odt -) 4 mg SL Q8H PRN PRN Reason: NAUSEA AND/OR VOMITING Last Admin: 11/03/17 14:41 Dose: 4 mg Ranitidine HCl (Zantac -) 150 mg PO DAILY [facility] Last Admin: 11/03/17 10:05 Dose: 150 mg Sitagliptin Phosphate (Januvia -) 50 mg PO ACBK [facility] Last Admin: 11/04/17 06:50 Dose: 50 mg Zolpidem Tartrate (Ambien -) 5 mg PO HS PRN PRN Reason: INSOMNIA Last Admin: 11/03/17 22:05 Dose: 5 mg - Objective Vital Signs: Vital Signs Temperature 97.8 F 11/04/17 06:00 Pulse Rate 53 L 11/04/17 06:00 Respiratory Rate 19 11/04/17 06:00 Blood Pressure 128/99 11/04/17 06:00 O2 Sat by Pulse Oximetry (%) 94 L 11/04/17 07:10 Constitutional: Yes: No Distress Eyes: Yes: Conjunctiva Clear Cardiovascular: Yes: Regular Rate and Rhythm, S1, S2 Respiratory: Yes: CTA Bilaterally Gastrointestinal: Yes: Normal Bowel Sounds, Soft. No: Tenderness Edema: LLE: 1+, RLE: 1+ Labs: CBC, BMP 11/03/17 11:35 11/03/17 11:35 INR, PTT INR 1.08 (0.82-1.09) 11/02/17 22:50 Assessment/Plan Viral syndrome v. early pnemonia Clinically improved Cultures negative Substitute po ceftin 500mg po bid x 7d Outpatient follow up
[2017-11-04] MEDS: APIXABAN 5 MG TABLET PO SCH (10:51)
[2017-11-04] MEDS: LORATADINE 10 MG TABLET PO SCH (10:51)
[2017-11-04] MEDS: CEFTRIAXONE 2 GM/100 ML BAG IVPB SCH (10:51)
[2017-11-04] MEDS: LACTOBACILLUS ACIDOPHILUS 1 TABLET PO SCH (10:51)
[2017-11-04] MEDS: METOPROLOL TARTRATE 50 MG TABLET (FP) PO SCH (10:52)
[2017-11-04] MEDS: RANITIDINE HCL 150 MG TABLET (FP) PO SCH (10:52)
[2017-11-04] MEDS ORDERED: PNEUMOC 13-VAL CONJ-DIP CRM/PF 0.5 ML DISP.SYRIN IM ONE (11:49)
--- NOTE | 2017-11-04 12:40 | DS ---
Physical Examination Vital Signs: Vital Signs Temperature 97.8 F 11/04/17 06:00 Pulse Rate 53 L 11/04/17 06:00 Respiratory Rate 19 11/04/17 06:00 Blood Pressure 128/99 11/04/17 06:00 O2 Sat by Pulse Oximetry (%) 96 11/04/17 08:52 Labs: CBC, BMP 11/03/17 11:35 11/03/17 11:35 Discharge Summary Reason For Visit: CHEST CONGESTION, TIREDNESS Current Active Problems CHF (congestive heart failure) (Acute) Condition: Improved - Instructions Diet, Activity, Other Instructions: Please return to the ED with new, persistent, or worsening symptoms. Please follow-up with providers as indicated. Antibiotics: Please continue the full course of antibiotics: Ceftin 500mg by mouth twice a day for 7 days. Referrals: Jerome Mcknight MD [Staff Physician] - (Please follow-up with Dr. Mcknight within 2-3 days for further evaluation and management of your need for antibiotics.) Javon Yip MD [Staff Physician] - 1 Week Disposition: HOME - Home Medications Comprehensive Discharge Medication List: Ambulatory Orders Metoprolol Tartrate [Lopressor -] 50 mg PO BID 09/13/12 Zolpidem Tartrate [Ambien] 10 mg PO HS 09/13/12 Atorvastatin Ca [Lipitor] 20 mg PO HS 06/22/14 Apixaban [Eliquis] 5 mg PO BID 02/13/15 Ergocalciferol (Vitamin D2) [Vitamin D] 50,000 unit PO WEEKLY 03/07/15 Acetaminophen [Tylenol] 325 mg PO QID PRN 04/05/16 Donepezil HCl [Aricept] 10 mg PO DAILY 11/02/17 Linagliptin/Metformin HCl [Jentadueto 2.5 mg-500 mg Tab] 1 each PO DAILY Loratadine [Claritin] 10 mg PO DAILY 11/02/17 Ranitidine HCl [Zantac] 150 mg PO DAILY 11/02/17 Cefuroxime Axetil [Ceftin -] 500 mg PO Q12H #14 tablet 11/04/17
== END 2017-11-04 13:10 | disposition home or self-care (01) | DRG 194 ==
LOC: FER 20:07 → FM/S 11-03 01:41 → UNDOADMOB 11-03 01:46 → OBSVTOIN 11-03 13:24
PROVIDERS: ADMIT Internal Medicine; ATTEND Registered Nurse
DX: J18.9 Pneumonia, unspecified organism (principal); I69.351 Hemiplegia and hemiparesis following cerebral infarction affecting right dominant side; I48.91 Unspecified atrial fibrillation; I10 Essential (primary) hypertension; E11.9 Type 2 diabetes mellitus without complications; E78.5 Hyperlipidemia, unspecified; K21.9 Gastro-esophageal reflux disease without esophagitis; I50.9 Heart failure, unspecified; E66.9 Obesity, unspecified; Z68.35 Body mass index [BMI] 35.0-35.9, adult
CPT/HCPCS: 36415; 71045-TC-FY; 71046-TC-FY; 80048; 80053; 81003; 81015; 82550; 82962; 83036; 83605; 83735; 83880; 84100; 84484; 85025; 85379; 85610; 87040; 87045; 87046; 87086; 87324; 87449; 87804; 87899; 93005; 93306-TC; 97116-GP; 97161-GP; 99282-25; G0378; J0131; Q0162

== ENCOUNTER 2017-12-03 06:32 | Observation (INO) | payer OTHER ==
[2017-12-03 06:50] VITALS: BMI 35.6
--- NOTE | 2017-12-03 06:59 | PDOC ---
History of Present Illness - General Chief Complaint: Respiratory Stated Complaint: CHEST CONGESTION, FATIGUE Time Seen by Provider: 12/03/17 06:53 History Source: Patient, Family Exam Limitations: Language Barrier - History of Present Illness Initial Comments: 12/03/17 06:55 This is an obese Congolese-speaking 72-year-old female brought in by her daughter for evaluation of cough, congestion, chest tightness, wheezing and fatigue. Patient was treated for pneumonia approximately 2 weeks ago and was getting better and now her daughter said she is getting worse again. Patient is Congolese- speaking only so interpretation is via her daughter. Daughter said she is coughing up some phlegm but denies any fevers. Patient was afebrile here in the emergency department. PAST MEDICAL HISTORY: Type 2 diabetes, hypertension, high cholesterol, CVA with residual right-sided weakness, GERD PAST SURGICAL HISTORY: no significant history FAMILY HISTORY: no pertinant history SOCIAL HISTORY: Pt lives with family and is employed. MEDICATIONS: reviewed ALLERGIES: As per nursing notes Review of Systems General: No fevers or chills, + weakness, no weight loss HEENT: No change in vision. No sore throat,. No ear pain CardioVascular: +chest pain, +shortness of breath Respiratory:No cough, or wheezing. Gastrointestinal: no nausea, vomitting, diarrhea or constipation, No rectal bleeding Genitourinary: No dysuria, hematuria, or frequency Musculoskeletal: No joint or muscle pain or swelling Neurologic: No headache, vertigo, dizziness or loss of consciousness Psychiatric: nor depression Skin: No rashes or easy bruising Endocrine: no increased thirst or abnormal weight change Allergic: no skin or latex allergy All other systems reviewed and normal Exam: General: Well-nourished well-developed individual, no acute distress HEENT: Throat: Normal, tonsils normal, no erythema or exudate Neck: Supple, no meningeal signs, no lymphadenopathy Eyes::Pupils equal reactive and round, extraocular motion intact Chest: Nontender to palpation Cardiac: S1-S2 normal, regular rate and rhythm, no murmurs rubs or gallops Respiratory: Mild decreased breath sounds bilateral no wheezing Abdomen: Soft, nondistended, normal bowel sounds, nontender to palpation diffusely Extremities: Warm, dry, no cyanosis, clubbing, or edema Skin: No rashes Neuro: Alert and oriented x3, CN II - XII intact, nonfocal exam with normal strength, normal sensation, normal reflexes, normal gait, Psych: Normal mood and affect 12/03/17 06:59 Care of this patient was transferred to Dr. Tavera. Patient's complete workup is still pending. Case discussed in detail with oncoming Emergency Physician including history, physical exam and ancillary studies. Oncoming Emergency Physician has assumed care for the patient and will complete the evaluation and treatment. Patient is aware of the plan. Pt is clinically unchanged and stable. . 12/03/17 07:04 Past History - Past Medical History Allergies/Adverse Reactions: Allergies Allergy/AdvReac Type Severity Reaction Status Date / Time morphine Allergy Intermediate Hives Verified 12/03/17 06:51 Home Medications: Ambulatory Orders Metoprolol Tartrate [Lopressor -] 50 mg PO BID 09/13/12 Zolpidem Tartrate [Ambien] 10 mg PO HS 09/13/12 Atorvastatin Ca [Lipitor] 20 mg PO HS 06/22/14 Apixaban [Eliquis] 5 mg PO BID 02/13/15 Ergocalciferol (Vitamin D2) [Vitamin D] 50,000 unit PO WEEKLY 03/07/15 Acetaminophen [Tylenol] 325 mg PO QID PRN 04/05/16 Donepezil HCl [Aricept] 10 mg PO DAILY 11/02/17 Linagliptin/Metformin HCl [Jentadueto 2.5 mg-500 mg Tab] 1 each PO DAILY Loratadine [Claritin] 10 mg PO DAILY 11/02/17 Ranitidine HCl [Zantac] 150 mg PO DAILY 11/02/17 Amlodipine/Valsartan [Exforge 10-320 mg Tablet] 10 - 320 mg PO DAILY 12/03/17 Acetaminophen [Tylenol .Regular Strength -] 650 mg PO Q4H PRN tablet 12/04/17 Bumetanide [Bumex -] 1 mg PO DAILY #60 tablet 12/04/17 Anemia: Yes (MANY YRS AGO) Asthma: Yes (CONTROLLED) Cancer: No Cardiac Disorders: Yes (H/O ARRHYTHMIA?) CVA: Yes (X 2 MANY YRS AGO) COPD: No CHF: No Dementia: No (ON ARICEPT FOR PREVENTION) Diabetes: Yes (X 4-5 YRS) GI Disorders: Yes (GERD) Disorders: No HTN: Yes Hypercholesterolemia: Yes Liver Disease: No Psychiatric Problems: Yes (depression,insomnia) Seizures: No Thyroid Disease: No - Surgical History Abdominal Surgery: Yes (GASTRIC BYPASS) Appendectomy: Yes Cardiac Surgery: Yes Cholecystectomy: Yes Lung Surgery: No Neurologic Surgery: No Orthopedic Surgery: Yes (RIGHT FOOT SURGERY) - Immunization History Immunization Up to Date: Yes - Suicide/Smoking/Psychosocial Hx Smoking Status: No Smoking History: Never smoked Have you smoked in the past 12 months: No Number of Cigarettes Smoked Daily: 0 Hx Alcohol Use: No Drug/Substance Use Hx: No Substance Use Type: None Hx Substance Use Treatment: No *Physical Exam - Vital Signs Last Vital Signs Temp Pulse Resp BP Pulse Ox 98.7 F 72 18 170/85 97 12/03/17 06:34 12/03/17 06:34 12/03/17 06:34 12/03/17 06:34 12/03/17 06:34 ED Treatment Course - LABORATORY CBC & Chemistry Diagram: 12/04/17 07:45 12/04/17 07:45 *DC/Admit/Observation/Transfer Diagnosis at time of Disposition: Congestive heart failure, Chest pain - Discharge Dispostion Disposition: VNS/HOME HEALTH CARE Condition at time of disposition: Good - Prescriptions - Referrals - Patient Instructions - Post Discharge Activity
--- NOTE | 2017-12-03 07:44 | PDOC ---
*Physical Exam - Vital Signs Last Vital Signs Temp Pulse Resp BP Pulse Ox 98.7 F 72 18 170/85 97 12/03/17 06:34 12/03/17 06:34 12/03/17 06:34 12/03/17 06:34 12/03/17 06:34 - Physical Exam General Appearance: Yes: Nourished HEENT: positive: Pharynx Normal Respiratory/Chest: positive: Normal Breath Sounds, Crackles (left base). negative: Respiratory Distress, Accessory Muscle Use Cardiovascular: positive: Regular Rhythm, Regular Rate, S1, S2, Murmur Gastrointestinal/Abdominal: positive: Normal Bowel Sounds, Flat, Soft. negative : Tender Musculoskeletal: positive: Normal Inspection. negative: CVA Tenderness Extremity: positive: Normal Capillary Refill, Normal Inspection Integumentary: positive: Normal Color, Dry, Warm Neurologic: positive: career consultant II-XII NML intact, Fully Oriented, Alert Heart Score/ECG Review #1 General ECG Interpretation: Normal Rate, Normal Intervals, No acute ischemic changes Compared to previous ECG there are: No significant change (afib, rate 70 bpm TWI I, AVL compare 11/02/17) ED Treatment Course - LABORATORY CBC & Chemistry Diagram: 12/03/17 07:30 12/03/17 07:30 Medical Decision Making - Medical Decision Making 12/03/17 07:39 72 yo Fwith h/o dm afib, cva, htn hld, recently admitted for pna one month ago, here today wtih c/o chest pain, fatgiue and sob. states similar to last presentation. pt has been using her sisters albuterol with some relief, but never had prior diagnosis of asthma or copd. no h/o tobacco use. no leg swelling. no f/c no nv. chest pain across who chest radiating to shoulders. pt signed out to me by dr. andres, assumed care at 7 am. on physical exam pt with small systolic murmur. faint cracles left lung base. normal effort. oxygen sat 92%. abd soft nt. ext wwp no edema. differential pna, chf, effusion, pe less likely as pt is on eloquis for her afib. plan labs ekg cxr tele, pt will likely require admission for tele r/o acs. pending work up. sees a popcorn machine operator dr. Colunga at [facility]. 12/03/17 07:48 12/03/17 09:40 Discussed with the covering popcorn machine operator for Dr. Colunga, Dr. GONZALES at [facility]. Was able to review the patient's records states that the patient did have a remote catheterization done in 2010 in 2012 with minimal coronary disease. Patient does have a known history of a mild thoracic aneurysm her last echo per their chart was performed in August shows an ejection fraction of 65-70% mild MR , mild AI, and mild to moderate . She does have pulmonary hypertension with an estimated pulmonary pressure of 60. Patient did have a nuclear stress test on September 2016 which was normal. Patient's popcorn machine operator requests should she be started on a diuretic they prefer torsemide rather than furosemide because it is better tolerated in pulmonary hypertension *DC/Admit/Observation/Transfer Diagnosis at time of Disposition: Congestive heart failure, Chest pain - Discharge Dispostion Condition at time of disposition: Good Decision to Admit order: Yes - Referrals Referrals: Yomaira Hernandez MD [Primary Care Provider] - - Patient Instructions - Post Discharge Activity
[2017-12-03] MEDS ORDERED: ASPIRIN 81 MG CHEWABLE TABLETS PO ONE (07:51)
[2017-12-03] MEDS ORDERED: NITROGLYCERIN SUBLINGUAL 1/150 0.4 MG TAB SL ONE (07:54)
[2017-12-03] MEDS ORDERED: NITROGLYCERIN SUBLINGUAL 1/150 0.4 MG TAB ONE (07:57)
[2017-12-03] MEDS ORDERED: ASPIRIN 81 MG CHEWABLE TABLETS ONE (07:57)
[2017-12-03 08:45] LABS: BASO % 0.6 % (0-2.0); EOS % 4.3 % (0-4.5); HEMATOCRIT 38.9 % (32.4-45.2); HEMOGLOBIN 12.9 GM/dl (10.7-15.3); LYMPH % 16.2 % (8-40); MCH 28.9 pg (25.7-33.7); MCHC 33.2 g/dl (32.0-36.0); MEAN CELL VOLUME 87.1 fl (80-96); MEAN PLT VOLUME 9.6 fl (7.5-11.1); MONO % 5.4 % (3.8-10.2); NEUT % 73.5 % (42.8-82.8); PLATELET COUNT 215 K/MM3 (134-434); RBC 4.46 M/mm3 (3.60-5.2); WHITE BLOOD COUNT 6.4 K/mm3 (4.0-10.8)
[2017-12-03 08:56] LABS: ALBUMIN 3.6 g/dl (3.5-5.0); ALK PHOS 120 U/L (32-92); ANION GAP 9 (8-16); BILIRUBIN,TOTAL 0.9 mg/dl (0.2-1.0); BLOOD UREA NITROGEN 15 mg/dl (7-18); CALCIUM 8.7 mg/dl (8.4-10.2); CHLORIDE 101 mmol/L (98-107); CO2 28 mmol/L (22-28); CREATININE 0.9 mg/dl (0.6-1.3); GLUCOSE,RANDOM 100 mg/dl (74-106); POTASSIUM 4.1 mmol/L (3.5-5.1); SGOT/AST 37 U/L (10-42); SGPT/ALT 40 U/L (10-40); SODIUM 138 mmol/L (136-145); TOT PROT 6.9 g/dl (6.4-8.3)
[2017-12-03 08:59] LABS: URINE APPEARANCE CLEAR; URINE BILIRUBIN NEGATIVE (NEGATIVE); URINE COLOR YELLOW; URINE GLUCOSE (UA) NEGATIVE (NEGATIVE); URINE KETONE NEGATIVE (NEGATIVE); URINE PROTEIN NEGATIVE (NEGATIVE)
[2017-12-03 09:00] LABS: URINE LEUK ESTERASE NEGATIVE (NEGATIVE); URINE NITRITE NEGATIVE (NEGATIVE)
[2017-12-03 09:22] LABS: ACTIVATED PTT 25.6 SECONDS (25.2-36.5)
[2017-12-03 09:26] LABS: INR 1.04 (0.82-1.09); PROTHROMBIN TIME (PATIENT) 11.6 SEC (10.2-13.0)
[2017-12-03] MEDS ORDERED: FUROSEMIDE 40 MG/4 ML INJECTABLE VIAL IVPUSH ONE (09:49)
[2017-12-03] MEDS ORDERED: FUROSEMIDE 40 MG/4 ML INJECTABLE VIAL ONE (10:14)
--- NOTE | 2017-12-03 11:31 | HP ---
CHIEF COMPLAINT: Chest pain, cough, congestion, wheezing and weakness. PCP: Cardiology Dr. Yobani Mckenna Neuro Dr. Grove HISTORY OF PRESENT ILLNESS: This is 72-year-old female brought in by her daughter for evaluation of cough, congestion, chest tightness, wheezing and fatigue for 3-5 days.Patient was treated for pneumonia approximately 2 weeks ago and was getting better and now her daughter said she is getting worse again. Patient is Togolese-speaking and information obtained from the daughter( Wendy, tele# [phone]). Daughter said she is coughing up some phlegm -clear,vomited x1 two days ago,pt reports dysuria,constipation,no hematuria denies fever, chills,abdominal pain or rectal bleeding. ER physician spoke with covering limousine and hearse upholsterer for Dr. JANET Leiva at [facility]. Was able to review the patient's records states that the patient did have a remote catheterization done in 2010 in 2012 with minimal coronary disease. Patient does have a known history of a mild thoracic aneurysm her last echo per their chart was performed in August shows an ejection fraction of 65-70 % mild MR, mild AI, and mild to moderate . She does have pulmonary hypertension with an estimated pulmonary pressure of 60. Patient did have a nuclear stress test on September 2016 which was normal. Patient's limousine and hearse upholsterer requests should she be started on a diuretic they prefer torsemide rather than furosemide because it is better tolerated in pulmonary hypertension ER course was notable for: (1)EKG- A- Fib (2) CXR: Congestive changes, cardiomegaly (3)T 98.7,wbc - 6.4, lactic acid 1.3,O2 sat 93% on RA PAST MEDICAL HISTORY: Type 2 diabetes, hypertension, high cholesterol, CVA with residual right-sided weakness, GERD, Hx of thoracic aneurysm,diabetic neuropathy, tremors,? dementia, recent pneumonia. PAST SURGICAL HISTORY: Hysterectomy, GB sx, appendectomy,catheterization done in 2012 Recent Travel: No Social History: Smoking:No Alcohol:No Drugs: No Family History: Allergies morphine Allergy (Intermediate, Verified 12/03/17 06:51) Hives HOME MEDICATIONS: Home Medications Medication Instructions Recorded Metoprolol Tartrate [Lopressor -] 50 mg PO BID 09/13/12 Zolpidem Tartrate [Ambien] 10 mg PO HS 09/13/12 Atorvastatin Ca [Lipitor] 20 mg PO HS 06/22/14 Apixaban [Eliquis] 5 mg PO BID 02/13/15 Ergocalciferol (Vitamin D2) 50,000 unit PO WEEKLY 03/07/15 [Vitamin D] Acetaminophen [Tylenol] 325 mg PO QID PRN 04/05/16 Donepezil HCl [Aricept] 10 mg PO DAILY 11/02/17 Linagliptin/Metformin HCl 1 each PO DAILY 11/02/17 [Jentadueto 2.5 mg-500 mg Tab] Loratadine [Claritin] 10 mg PO DAILY 11/02/17 Ranitidine HCl [Zantac] 150 mg PO DAILY 11/02/17 REVIEW OF SYSTEMS CONSTITUTIONAL: c/o generalized weakness, malaise, Absent: fever, chills, diaphoresis, loss of appetite, weight change HEENT: Absent: rhinorrhea, nasal congestion, throat pain, throat swelling, difficulty swallowing, mouth swelling, ear pain, eye pain, visual changes CARDIOVASCULAR: c/o chest pain ( pressure like pain) palpitations Absent: syncope, irregular heart rate, lightheadedness, peripheral edema RESPIRATORY: Reports cough, shortness of breath, dyspnea with exertion, orthopnea, wheezing, no stridor or hemoptysis GASTROINTESTINAL: Absent: abdominal pain, abdominal distension, nausea, vomiting, diarrhea, constipation, melena, hematochezia GENITOURINARY: Absent: dysuria, frequency, urgency, hesitancy, hematuria, flank pain, genital pain MUSCULOSKELETAL: Absent: myalgia, arthralgia, joint swelling, back pain, neck pain SKIN: Absent: rash, itching, pallor HEMATOLOGIC/IMMUNOLOGIC: Absent: easy bleeding, easy bruising, lymphadenopathy, frequent infections ENDOCRINE: Absent: unexplained weight gain, unexplained weight loss, heat intolerance, cold intolerance NEUROLOGIC: c/o feet paresthesias Absent: headache, focal weakness dizziness, unsteady gait, seizure, mental status changes, bladder or bowel incontinence PSYCHIATRIC: Absent: anxiety, depression, suicidal or homicidal ideation, hallucinations. PHYSICAL EXAMINATION Vital Signs - 24 hr 12/03/17 12/03/17 12/03/17 06:34 07:45 08:01 Temperature 98.7 F 98.8 F Pulse Rate 72 Pulse Rate [ 76 Apical] Respiratory 18 22 Rate Blood Pressure 170/85 Blood Pressure 143/83 [Left Arm] O2 Sat by Pulse 97 93 L 100 Oximetry (%) GENERAL: Awake, alert, and fully oriented, in no acute distress. Togolese speaking HEAD: Normal with no signs of trauma. EYES: Pupils equal, round and reactive to light, extraocular movements intact, sclera anicteric, conjunctiva clear. No lid lag. EARS, NOSE, THROAT: Ears normal, nares patent, oropharynx clear without exudates. Moist mucous membranes. NECK: Normal range of motion, supple without lymphadenopathy, JVD, or masses. LUNGS: Breath sounds equal, clear to auscultation bilaterally. No wheezes, and no crackles. No accessory muscle use. HEART:Irregular with murmur, rub or gallop. ABDOMEN: Soft, nontender, not distended, normoactive bowel sounds, no guarding, no rebound, no masses. No hepatomegaly or splenomegaly. MUSCULOSKELETAL: Normal range of motion at all joints. No bony deformities or tenderness. No CVA tenderness. UPPER EXTREMITIES: 2+ pulses, warm, well-perfused. No cyanosis. No clubbing. No peripheral edema. LOWER EXTREMITIES: 2+ pulses, warm, well-perfused. No calf tenderness, trace edema. NEUROLOGICAL: Cranial nerves II-XII intact. Normal speech. Normal not tested PSYCHIATRIC: Cooperative. Good eye contact. Appropriate mood and affect. SKIN: Warm, dry, normal turgor, no rashes or lesions noted, normal capillary refill. Laboratory Results - last 24 hr 12/03/17 12/03/17 12/03/17 07:30 07:30 07:30 WBC 6.4 RBC 4.46 Hgb 12.9 Hct 38.9 MCV 87.1 MCH 28.9 MCHC 33.2 RDW 14.0 Plt Count 215 MPV 9.6 Absolute Neuts (auto) 4.8 Neutrophils % 73.5 Lymphocytes % 16.2 Monocytes % 5.4 Eosinophils % 4.3 Basophils % 0.6 PT with INR INR PTT (Actin FS) Sodium 138 Potassium 4.1 Chloride 101 Carbon Dioxide 28 Anion Gap 9 BUN 15 Creatinine 0.9 Creat Clearance w eGFR > 60 Random Glucose 100 D Lactic Acid Calcium 8.7 Total Bilirubin 0.9 AST 37 D ALT 40 D Alkaline Phosphatase 120 H D Creatine Kinase Troponin I B-Natriuretic Peptide Total Protein 6.9 Albumin 3.6 Urine Color Yellow Urine Appearance Clear Urine pH 7.0 Ur Specific [place] 1.010 Urine Protein Negative Urine Glucose (UA) Negative Urine Ketones Negative Urine Blood Negative Urine Nitrite Negative Urine Bilirubin Negative Urine Urobilinogen 2.0 H Ur Leukocyte Esterase Negative ASSESSMENT/PLAN: This is 72-year-old female with a primary history significant for Type 2 diabetes, hypertension,Hx of thoracic aneurysm high cholesterol, CVA with residual right-sided weakness, GERD, diabetic neuropathy, tremors,? dementia, recent pneumonia, who was brought in by her daughter for evaluation of cough, congestion, chest tightness, wheezing and fatigue for 3-5 days. *Chest pain r/o ACS -serial cardiac enzymes, Trop neg x1 - tele monitoring - Ekg- A- Fib *Cough/congestion r/o pneumonia vs CHF -cxr: congestive changes - afebrile with no leukocytosis -BNP 2880 -O2 sat 93% on RA, 100% 0n nasal O2 - s/p Lasix 40mg in ER - will monitor for I&O's - recent Echo EF55-60%, mild , mild to mod MR -will start on torsemide as per pt limousine and hearse upholsterer - daily weight monitoring - I&O's * Hx of thoracic aneurysm - ordered CTA, CT abdome/pelvis * Hx of A- Fib- HR controlled - will cont on home dose Eliquis and Lopressor *Hypertension - will cont on exforge and Lopressor - will monitor BP closely * HDL- will cont on Statin * DM - will hold off on Jentadueto 1 tab po daily, s/p CTA - recent Hgb Alc 6.1 ( 11/03/17) - FS AC& HS - Insulin sliding scale * ? Dementia - on Aricept * Hx of CVA - on Statin and Eliquis * Dysuria - UA negative - urine culture pending - afebrile, no leukocytosis *f/e/n - low sodium diabetic diet * VTE on Eliquis Visit type - Emergency Visit Emergency Visit: Yes ED Registration Date: 12/03/17 Care time: The patient presented to the Emergency Department on the above date and was hospitalized for further evaluation of their emergent condition. - New Patient This patient is new to me today: Yes Date on this admission: 12/03/17 - Critical Care Critical Care patient: No Hospitalist Screening - Colonoscopy Questionnaire Colonoscopy Questionnaire: Colonoscopy Questionnaire
[2017-12-03] MEDS ORDERED: amLODIPine BESYLATE 10 MG TABLET (FP) PO ONE (13:37)
[2017-12-03] MEDS: INSULIN SLIDING SCALE (NOVOLOG) 1 VIAL SQ SCH (16:53)
[2017-12-03] MEDS: APIXABAN 5 MG TABLET PO SCH (21:28)
[2017-12-03] MEDS: METOPROLOL TARTRATE 50 MG TABLET (FP) PO SCH (21:28)
[2017-12-03] MEDS ORDERED: ATORVASTATIN CA 20 MG TABLET (FP) PO SCH (22:00)
[2017-12-03] MEDS ORDERED: ZOLPIDEM TARTRATE 5 MG TABLET PO PRN (22:00)
[2017-12-03] MEDS ORDERED: DONEPEZIL HCL 10 MG TABLET (FP) PO SCH (22:00)
[2017-12-04] MEDS: INSULIN SLIDING SCALE (NOVOLOG) 1 VIAL SQ SCH ×2 (07:00→11:58)
--- NOTE | 2017-12-04 07:15 | PN ---
Physical Exam: SUBJECTIVE: Patient seen and examined OBJECTIVE: Vital Signs Period Temp Pulse Resp BP Sys/Daugherty Pulse Ox Last 24 Hr 97.5 F-98.8 F 54-80 18-22 138-177/64-91 93-100 GENERAL: The patient is awake, alert, and fully oriented, in no acute distress. HEAD: Normal with no signs of trauma. EYES: PERRL, extraocular movements intact, sclera anicteric, conjunctiva clear. No ptosis. ENT: Ears normal, nares patent, oropharynx clear without exudates, moist mucous membranes. NECK: Trachea midline, full range of motion, supple. LUNGS: Breath sounds equal, clear to auscultation bilaterally, no wheezes, no crackles, no accessory muscle use. HEART: Regular rate and rhythm, S1, S2 without murmur, rub or gallop. ABDOMEN: Soft, nontender, nondistended, normoactive bowel sounds, no guarding, no rebound, no hepatosplenomegaly, no masses. EXTREMITIES: 2+ pulses, warm, well-perfused, no edema. NEUROLOGICAL: Cranial nerves II through XII grossly intact. Normal speech, gait not observed. PSYCH: Normal mood, normal affect. SKIN: Warm, dry, normal turgor, no rashes or lesions noted Laboratory Results - last 24 hr 12/03/17 12/03/17 12/03/17 07:30 07:30 07:30 WBC 6.4 RBC 4.46 Hgb 12.9 Hct 38.9 MCV 87.1 MCH 28.9 MCHC 33.2 RDW 14.0 Plt Count 215 MPV 9.6 Absolute Neuts (auto) 4.8 Neutrophils % 73.5 Lymphocytes % 16.2 Monocytes % 5.4 Eosinophils % 4.3 Basophils % 0.6 PT with INR INR PTT (Actin FS) Sodium 138 Potassium 4.1 Chloride 101 Carbon Dioxide 28 Anion Gap 9 BUN 15 Creatinine 0.9 Creat Clearance w eGFR > 60 POC Glucometer Random Glucose 100 D Lactic Acid Calcium 8.7 Total Bilirubin 0.9 AST 37 D ALT 40 D Alkaline Phosphatase 120 H D Creatine Kinase Troponin I B-Natriuretic Peptide Total Protein 6.9 Albumin 3.6 Urine Color Yellow Urine Appearance Clear Urine pH 7.0 Ur Specific [place] 1.010 Urine Protein Negative Urine Glucose (UA) Negative Urine Ketones Negative Urine Blood Negative Urine Nitrite Negative Urine Bilirubin Negative Urine Urobilinogen 2.0 H Ur Leukocyte Esterase Negative 12/03/17 12/03/17 12/03/17 07:30 07:30 07:56 WBC RBC Hgb Hct MCV MCH MCHC RDW Plt Count MPV Absolute Neuts (auto) Neutrophils % Lymphocytes % Monocytes % Eosinophils % Basophils % PT with INR INR PTT (Actin FS) Sodium Potassium Chloride Carbon Dioxide Anion Gap BUN Creatinine Creat Clearance w eGFR POC Glucometer Random Glucose Lactic Acid 1.3 Calcium Total Bilirubin AST ALT Alkaline Phosphatase Creatine Kinase 73 Troponin I < 0.03 B-Natriuretic Peptide Total Protein Albumin Urine Color Urine Appearance Urine pH Ur Specific [place] Urine Protein Urine Glucose (UA) Urine Ketones Urine Blood Urine Nitrite Urine Bilirubin Urine Urobilinogen Ur Leukocyte Esterase 12/03/17 12/03/17 12/03/17 07:56 07:56 13:30 WBC RBC Hgb Hct MCV MCH MCHC RDW Plt Count MPV Absolute Neuts (auto) Neutrophils % Lymphocytes % Monocytes % Eosinophils % Basophils % PT with INR 11.6 INR 1.04 PTT (Actin FS) 25.6 Sodium Potassium Chloride Carbon Dioxide Anion Gap BUN Creatinine Creat Clearance w eGFR POC Glucometer Random Glucose Lactic Acid Calcium Total Bilirubin AST ALT Alkaline Phosphatase Creatine Kinase Troponin I < 0.03 B-Natriuretic Peptide 2880.38 H Total Protein Albumin Urine Color Urine Appearance Urine pH Ur Specific [place] Urine Protein Urine Glucose (UA) Urine Ketones Urine Blood Urine Nitrite Urine Bilirubin Urine Urobilinogen Ur Leukocyte Esterase 12/03/17 12/03/17 12/03/17 16:52 20:30 21:41 WBC RBC Hgb Hct MCV MCH MCHC RDW Plt Count MPV Absolute Neuts (auto) Neutrophils % Lymphocytes % Monocytes % Eosinophils % Basophils % PT with INR INR PTT (Actin FS) Sodium Potassium Chloride Carbon Dioxide Anion Gap BUN Creatinine Creat Clearance w eGFR POC Glucometer 127 104 Random Glucose Lactic Acid Calcium Total Bilirubin AST ALT Alkaline Phosphatase Creatine Kinase Troponin I < 0.03 B-Natriuretic Peptide Total Protein Albumin Urine Color Urine Appearance Urine pH Ur Specific [place] Urine Protein Urine Glucose (UA) Urine Ketones Urine Blood Urine Nitrite Urine Bilirubin Urine Urobilinogen Ur Leukocyte Esterase 12/04/17 05:48 WBC RBC Hgb Hct MCV MCH MCHC RDW Plt Count MPV Absolute Neuts (auto) Neutrophils % Lymphocytes % Monocytes % Eosinophils % Basophils % PT with INR INR PTT (Actin FS) Sodium Potassium Chloride Carbon Dioxide Anion Gap BUN Creatinine Creat Clearance w eGFR POC Glucometer 117 Random Glucose Lactic Acid Calcium Total Bilirubin AST ALT Alkaline Phosphatase Creatine Kinase Troponin I B-Natriuretic Peptide Total Protein Albumin Urine Color Urine Appearance Urine pH Ur Specific [place] Urine Protein Urine Glucose (UA) Urine Ketones Urine Blood Urine Nitrite Urine Bilirubin Urine Urobilinogen Ur Leukocyte Esterase Active Medications Generic Name Dose Route Start Last Admin Trade Name Freq PRN Reason Stop Dose Admin Amlodipine Besylate 10 mg 12/04/17 10:00 Norvasc - PO DAILY BELEN Apixaban 5 mg 12/03/17 22:00 12/03/17 21:28 Eliquis - PO 5 mg BID BELEN Administration Atorvastatin Calcium 20 mg 12/03/17 22:00 12/03/17 21:28 Lipitor - PO 20 mg HS BELEN Administration Donepezil HCl 10 mg 12/03/17 22:00 12/03/17 21:28 Aricept - PO 10 mg HS BELEN Administration Insulin Aspart 1 vial 12/03/17 16:30 12/03/17 16:53 Novolog Vial Sliding Scale - SQ Not Given ACHS BELEN Protocol Loratadine 10 mg 12/04/17 10:00 Claritin - PO DAILY BELEN Metoprolol Tartrate 50 mg 12/03/17 22:00 12/03/17 21:28 Lopressor - PO 50 mg BID BELEN Administration Ranitidine HCl 150 mg 12/04/17 10:00 Zantac - PO DAILY BELEN Torsemide 20 mg 12/04/17 10:00 Demadex - PO DAILY [facility] Valsartan 320 mg 12/04/17 10:00 Diovan - PO DAILY [facility] Zolpidem Tartrate 5 mg 12/03/17 22:00 Ambien - PO HS PRN INSOMNIA ASSESSMENT/PLAN:
--- NOTE | 2017-12-04 09:18 | EKG ---
Test Reason : Blood Pressure : / mmHG Vent. Rate : 070 BPM Atrial Rate : 070 BPM P-R Int : 000 ms QRS Dur : 116 ms QT Int : 434 ms P-R-T Axes : 000 012 144 degrees QTc Int : 468 ms ATRIAL FLUTTER LEFT VENTRICULAR HYPERTROPHY WITH QRS WIDENING CANNOT RULE OUT SEPTAL INFARCT , AGE UNDETERMINED ABNORMAL ECG WHEN COMPARED WITH ECG OF 02-NOV-2017 23:04, COMPARED TO EKG NO SIGNIFICANT CHANGE IS FOUND Confirmed by AJ STARK MD ([id number]) on 12/04/2017 9:17:57 AM Referred By: BLAINE Confirmed By:AJ STARK MD
[2017-12-04 09:21] LABS: ALBUMIN 3.3 g/dl (3.5-5.0); ALK PHOS 103 U/L (32-92); ANION GAP 9 (8-16); BILIRUBIN,TOTAL 1.2 mg/dl (0.2-1.0); BLOOD UREA NITROGEN 17 mg/dl (7-18); CALCIUM 8.7 mg/dl (8.4-10.2); CHLORIDE 99 mmol/L (98-107); CO2 30 mmol/L (22-28); GLUCOSE,RANDOM 117 mg/dl (74-106); POTASSIUM 4.4 mmol/L (3.5-5.1); SGOT/AST 25 U/L (10-42); SGPT/ALT 30 U/L (10-40); SODIUM 138 mmol/L (136-145); TOT PROT 6.4 g/dl (6.4-8.3)
[2017-12-04] MEDS: METOPROLOL TARTRATE 50 MG TABLET (FP) PO SCH (09:25)
[2017-12-04] MEDS: APIXABAN 5 MG TABLET PO SCH (09:25)
[2017-12-04 09:49] LABS: BASO % 0.3 % (0-2.0); EOS % 4.8 % (0-4.5); HEMATOCRIT 39.7 % (32.4-45.2); MCH 28.7 pg (25.7-33.7); MCHC 32.7 g/dl (32.0-36.0); MEAN CELL VOLUME 87.8 fl (80-96); MEAN PLT VOLUME 8.9 fl (7.5-11.1); MONO % 8.5 % (3.8-10.2); NEUT % 66.4 % (42.8-82.8); PLATELET COUNT 258 K/MM3 (134-434); RBC 4.52 M/mm3 (3.60-5.2); RDW 14.1 % (11.6-15.6); WHITE BLOOD COUNT 5.9 K/mm3 (4.0-10.8)
--- NOTE | 2017-12-04 09:51 | CON.CARD ---
Consult Consult Specialty:: Cardiology Referred by:: Hospitalist Medicine Reason for Consultation:: CHF - History of Present Illness Chief Complaint: Cough, dyspnea History of Present Illness: Chest pain, cough, congestion, wheezing and weakness. PCP: Cardiology Dr. Yobani Hodge Endo Dr. Mckenna Neuro Dr. [place] HISTORY OF PRESENT ILLNESS: This is 72-year-old female with h/o atypical chest pain, hyperlipidemia, /AI, PSVT, type 2 DM, HTN, diastolic dysfunction, pulm HTN brought in by her daughter for evaluation of cough, congestion, chest tightness, wheezing and fatigue for 3-5 days.Patient was treated for pneumonia approximately 2 weeks ago and was getting better and now her daughter said she is getting worse again. Patient is Sinhala-speaking and information obtained from the daughter( Wendy, tele# [phone]). Daughter said she is coughing up some phlegm -clear ,vomited x1 two days ago,pt reports dysuria,constipation,no hematuria denies fever, chills,abdominal pain or rectal bleeding. Started on Demadex upon discussion with fabric finisher over weekend, sees Dr. Yobani Hodge at [facility] in office most recently 11/06/2017. - History Source History Provided By: Patient Limitations to Obtaining History: No Limitations - Alcohol/Substance Use Hx Alcohol Use: No - Smoking History Smoking history: Never smoked Have you smoked in the past 12 months: No Aproximately how many cigarettes per day: 0 Home Medications - Allergies Allergies/Adverse Reactions: Allergies Allergy/AdvReac Type Severity Reaction Status Date / Time morphine Allergy Intermediate Hives Verified 12/03/17 06:51 - Home Medications Home Medications: Ambulatory Orders Metoprolol Tartrate [Lopressor -] 50 mg PO BID 09/13/12 Zolpidem Tartrate [Ambien] 10 mg PO HS 09/13/12 Atorvastatin Ca [Lipitor] 20 mg PO HS 06/22/14 Apixaban [Eliquis] 5 mg PO BID 02/13/15 Ergocalciferol (Vitamin D2) [Vitamin D] 50,000 unit PO WEEKLY 03/07/15 Acetaminophen [Tylenol] 325 mg PO QID PRN 04/05/16 Donepezil HCl [Aricept] 10 mg PO DAILY 11/02/17 Linagliptin/Metformin HCl [Jentadueto 2.5 mg-500 mg Tab] 1 each PO DAILY Loratadine [Claritin] 10 mg PO DAILY 11/02/17 Ranitidine HCl [Zantac] 150 mg PO DAILY 11/02/17 Amlodipine/Valsartan [Exforge 10-320 mg Tablet] 10 - 320 mg PO DAILY 12/03/17 Review of Systems - Review of Systems Cardiovascular: reports: Shortness of Breath Respiratory: reports: Cough Vital Signs: Vital Signs Temperature 97.5 F L 12/03/17 22:26 Pulse Rate 80 12/03/17 22:26 Respiratory Rate 16 12/04/17 08:26 Blood Pressure 155/91 12/03/17 22:26 O2 Sat by Pulse Oximetry (%) 98 12/04/17 08:26 Constitutional: Yes: No Distress, Calm Neck: Yes: Supple Respiratory: Yes: Regular, CTA Bilaterally Cardiovascular: Yes: Regular Rate and Rhythm JVD: No Carotid Bruit: No Heart Sounds: Yes: S1, S2 Murmur: Yes: Systolic Murmur, Grade 2 Edema: No - Other Data Labs, Other Data: INR, PTT INR 1.04 (0.82-1.09) 12/03/17 07:56 Troponin, BNP 12/03/17 12/03/17 12/03/17 07:56 13:30 20:30 Troponin I < 0.03 < 0.03 B-Natriuretic Peptide 2880.38 H Troponin, BNP 12/03/17 12/03/17 12/03/17 07:56 13:30 20:30 Troponin I < 0.03 < 0.03 B-Natriuretic Peptide 2880.38 H Aflutter @ 70 LVH Echo: Report Reviewed Ejection Fraction %: LVEF > or = 40 % Imaging - Results Chest X-ray: Report Reviewed (Mild CHF, poor inspiration) Cat Scan: Report Reviewed (Chest CTA: Bilateral interstitial thickening without infiltrate, effusion) Problem List - Problems (1) Acute on chronic diastolic (congestive) heart failure Code(s): I50.33 - ACUTE ON CHRONIC DIASTOLIC (CONGESTIVE) HEART FAILURE (2) Paroxysmal atrial flutter Code(s): I48.92 - UNSPECIFIED ATRIAL FLUTTER (3) Chronic anticoagulation Code(s): Z79.01 - BUFFER CHROME (CURRENT) USE OF ANTICOAGULANTS (4) Mild aortic stenosis by prior echocardiogram Code(s): I35.0 - NONRHEUMATIC AORTIC (VALVE) STENOSIS (5) Hyperlipidemia associated with type 2 diabetes mellitus Code(s): E11.69 - TYPE 2 DIABETES MELLITUS WITH OTHER SPECIFIED COMPLICATION; E78.5 - HYPERLIPIDEMIA, UNSPECIFIED (6) Hypertensive cardiomegaly with heart failure Code(s): I11.0 - HYPERTENSIVE HEART DISEASE WITH HEART FAILURE (7) Type 2 diabetes mellitus Code(s): E11.9 - TYPE 2 DIABETES MELLITUS WITHOUT COMPLICATIONS Qualifiers: Diabetes mellitus fdc insulin use: without manager intermediate use Assessment/Plan 09/08/2017 Echo: Normal LV size with mild LVH normal LV fxn, mod LAE, normal RV size and fxn, mild-mod aortic valve stenosis, mild MR, trace TR, RVSP 59 mmHg 10/05/2016 Adenosine Myoview: No ischemia, normal LV size and fxn LVEF 68% 11/03/2017 Echo: Normal biventricular size and fxn, LVEF 55-60%, mild MR, TR, mild-mod AR, RVSP 30-40 mmHg 1. Acute on chronic diastolic failure with improved volume status 2. Atypical chest pain with neg MPI for ischemia 3. PAF->SR on NOAC 4. Hyperlipidemia 5. HTN/HCVD 6. Cerebrovascular disease 7. Type 2 DM 6. Aortic dilatation chest mild 3.8 by echo 08/11, 4 cm echo 09/13, 3.7 cm CTA 7. Pulm HTN 40s by echo 08/11, 50s by echo 09/13, 30-40 echo 12/13 P:1. Ruled out [place] 2. Continue Lopressor 50 bid, Lipitor 20 qhs, Eliquis 5 bid, Exforge 10/320 qd, resume Bumex 1 qd 3. Outpatient records by Dr. Yobani Hodge reviewed, she should f/u with him in office 4. Thank you for consultative opportunity
[2017-12-04] MEDS ORDERED: RANITIDINE HCL 150 MG TABLET (FP) PO SCH (10:00)
[2017-12-04] MEDS ORDERED: TORSEMIDE 20 MG TABLET (FP) PO SCH (10:00)
[2017-12-04] MEDS ORDERED: amLODIPine BESYLATE 10 MG TABLET (FP) PO SCH (10:00)
[2017-12-04] MEDS ORDERED: LORATADINE 10 MG TABLET PO SCH (10:00)
[2017-12-04] MEDS ORDERED: VALSARTAN 160 MG TABLET (UD) PO SCH (10:00)
[2017-12-04] MEDS ORDERED: ACETAMINOPHEN 325 MG TABLET (FP) PO PRN (11:12)
--- NOTE | 2017-12-04 11:15 | DS ---
Physical Exam: SUBJECTIVE: Patient seen and examined, sitting in bedside, reports feeling well , denies any chest pain or shortness of breath. OBJECTIVE: This is 72-year-old female brought in by her daughter for evaluation of cough, congestion, chest tightness, wheezing and fatigue for 3-5 days.Patient was treated for pneumonia approximately 2 weeks ago and was getting better and now her daughter said she is getting worse again. Patient is [place] Citizen-speaking and information obtained from the daughter( Wendy, tele# [phone]). Daughter said she is coughing up some phlegm -clear,vomited x1 two days ago,pt reports dysuria,constipation,no hematuria denies fever, chills,abdominal pain or rectal bleeding. ER physician spoke with covering camp assistant for Dr. JANET Leiva at [facility]. Was able to review the patient's records states that the patient did have a remote catheterization done in 2010 in 2012 with minimal coronary disease. Patient does have a known history of a mild thoracic aneurysm her last echo per their chart was performed in August shows an ejection fraction of 65-70 % mild MR, mild AI, and mild to moderate . She does have pulmonary hypertension with an estimated pulmonary pressure of 60. Patient did have a nuclear stress test on September 2016 which was normal. Patient's camp assistant requests should she be started on a diuretic they prefer torsemide rather than furosemide because it is better tolerated in pulmonary hypertension Vital Signs Period Temp Pulse Resp BP Sys/Daugherty Pulse Ox Last 24 Hr 97.5 F-98 F 54-80 16-20 154-177/64-91 98-100 PHYSICAL EXAM GENERAL: Awake, alert, and fully oriented, in no acute distress. [place] Citizen speaking HEAD: Normal with no signs of trauma. EYES: Pupils equal, round and reactive to light, extraocular movements intact, sclera anicteric, conjunctiva clear. No lid lag. EARS, NOSE, THROAT: Ears normal, nares patent, oropharynx clear without exudates. Moist mucous membranes. NECK: Normal range of motion, supple without lymphadenopathy, JVD, or masses. LUNGS: Breath sounds equal, clear to auscultation bilaterally. No wheezes, and no crackles. No accessory muscle use. HEART:Irregular with murmur, rub or gallop. ABDOMEN: Soft, nontender, not distended, normoactive bowel sounds, no guarding, no rebound, no masses. No hepatomegaly or splenomegaly. MUSCULOSKELETAL: Normal range of motion at all joints. No bony deformities or tenderness. No CVA tenderness. UPPER EXTREMITIES: 2+ pulses, warm, well-perfused. No cyanosis. No clubbing. No peripheral edema. LOWER EXTREMITIES: 2+ pulses, warm, well-perfused. No calf tenderness, trace edema. NEUROLOGICAL: Cranial nerves II-XII intact. Normal speech. Normal not tested PSYCHIATRIC: Cooperative. Good eye contact. Appropriate mood and affect. SKIN: Warm, dry, normal turgor, no rashes or lesions noted, normal capillary refill. LABS Laboratory Results - last 24 hr 12/03/17 12/03/17 12/03/17 13:30 16:52 20:30 WBC RBC Hgb Hct MCV MCH MCHC RDW Plt Count MPV Absolute Neuts (auto) Neutrophils % Lymphocytes % Monocytes % Eosinophils % Basophils % Sodium Potassium Chloride Carbon Dioxide Anion Gap BUN Creatinine Creat Clearance w eGFR POC Glucometer 127 Random Glucose Calcium Total Bilirubin AST ALT Alkaline Phosphatase Troponin I < 0.03 < 0.03 Total Protein Albumin 12/03/17 12/04/17 12/04/17 21:41 05:48 07:45 WBC RBC Hgb Hct MCV MCH MCHC RDW Plt Count MPV Absolute Neuts (auto) Neutrophils % Lymphocytes % Monocytes % Eosinophils % Basophils % Sodium 138 Potassium 4.4 Chloride 99 Carbon Dioxide 30 H Anion Gap 9 BUN 17 Creatinine 1.0 Creat Clearance w eGFR 54.81 POC Glucometer 104 117 Random Glucose 117 H Calcium 8.7 Total Bilirubin 1.2 H AST 25 D ALT 30 D Alkaline Phosphatase 103 H D Troponin I Total Protein 6.4 Albumin 3.3 L 12/04/17 07:45 WBC 5.9 RBC 4.52 Hgb 13.0 Hct 39.7 MCV 87.8 MCH 28.7 MCHC 32.7 RDW 14.1 Plt Count 258 MPV 8.9 Absolute Neuts (auto) 3.9 Neutrophils % 66.4 Lymphocytes % 20.0 Monocytes % 8.5 Eosinophils % 4.8 H Basophils % 0.3 Sodium Potassium Chloride Carbon Dioxide Anion Gap BUN Creatinine Creat Clearance w eGFR POC Glucometer Random Glucose Calcium Total Bilirubin AST ALT Alkaline Phosphatase Troponin I Total Protein Albumin IMAGING chest/Abd HOSPITAL COURSE: Date of Admission:12/03/17 Date of Discharge: 12/04/17 Minutes to complete discharge: 45 Discharge Summary Reason For Visit: CHF Current Active Problems Acute on chronic diastolic (congestive) heart failure (Acute) Chest pain (Acute) Chronic anticoagulation (Acute) Congestive heart failure (Acute) Hyperlipidemia associated with type 2 diabetes mellitus (Acute) Hypertensive cardiomegaly with heart failure (Acute) Mild aortic stenosis by prior echocardiogram (Acute) Paroxysmal atrial flutter (Acute) Type 2 diabetes mellitus (Acute) Condition: Good - Instructions Diet, Activity, Other Instructions: continue all medications as prescribed continue bumex daily please follow up with your camp assistant within 1 week if any new or persistent symptoms please return to the emergency department Referrals: Yomaira Hernandez MD [Primary Care Provider] - Yobani Hodge [Non Staff, Medical] - 1 Week Disposition: VNS/HOME HEALTH CARE - Home Medications Comprehensive Discharge Medication List: Ambulatory Orders Metoprolol Tartrate [Lopressor -] 50 mg PO BID 09/13/12 Zolpidem Tartrate [Ambien] 10 mg PO HS 09/13/12 Atorvastatin Ca [Lipitor] 20 mg PO HS 06/22/14 Apixaban [Eliquis] 5 mg PO BID 02/13/15 Ergocalciferol (Vitamin D2) [Vitamin D] 50,000 unit PO WEEKLY 03/07/15 Acetaminophen [Tylenol] 325 mg PO QID PRN 04/05/16 Donepezil HCl [Aricept] 10 mg PO DAILY 11/02/17 Linagliptin/Metformin HCl [Jentadueto 2.5 mg-500 mg Tab] 1 each PO DAILY Loratadine [Claritin] 10 mg PO DAILY 11/02/17 Ranitidine HCl [Zantac] 150 mg PO DAILY 11/02/17 Amlodipine/Valsartan [Exforge 10-320 mg Tablet] 10 - 320 mg PO DAILY 12/03/17
[2017-12-04 14:09] VITALS: BP 148/72; PULSE 55; TEMP 97.9
[2017-12-05] MEDS ORDERED: BUMETANIDE 1 MG TABLET PO SCH (10:00)
== END 2017-12-04 16:25 | disposition home health service (06) ==
LOC: FER 06:32 → UNDOADMOB 11:30 → FM/S 11:30
PROVIDERS: ADMIT Internal Medicine; ATTEND Nurse Practitioner Family
PROC: 3E033GC Introduction of Other Therapeutic Substance into Peripheral Vein, Percutaneous Approach (ICD-10-PCS; principal; 2017-12-03)
DX: I50.33 Acute on chronic diastolic (congestive) heart failure (principal); I48.92 Unspecified atrial flutter; R07.9 Chest pain, unspecified; I35.0 Nonrheumatic aortic (valve) stenosis; E11.69 Type 2 diabetes mellitus with other specified complication; I69.351 Hemiplegia and hemiparesis following cerebral infarction affecting right dominant side; K21.9 Gastro-esophageal reflux disease without esophagitis; E66.9 Obesity, unspecified; Z68.34 Body mass index [BMI] 34.0-34.9, adult; Z79.01 Long term (current) use of anticoagulants; Z98.84 Bariatric surgery status; Z88.6 Allergy status to analgesic agent; Z86.79 Personal history of other diseases of the circulatory system
CPT/HCPCS: 36415; 71045-TC-FY; 71275-TC; 75635-TC; 80053; 81003; 82550; 82962; 83605; 83735; 83880; 84484; 85025; 85610; 85730; 87040; 87086; 93005; 96374; 99285-25; G0378

== ENCOUNTER 2018-05-25 08:48 | Emergency (ER) | payer OTHER ==
[2018-05-25 09:05] VITALS: TEMP 98.7; BMI 36.0
--- NOTE | 2018-05-25 09:17 | PDOC ---
Attending Attestation - Resident Resident Name: Khadar Mooer - ED Attending Attestation I have performed the following: I have examined & evaluated the patient, The case was reviewed & discussed with the resident, I agree w/resident's findings & plan, Exceptions are as noted - HPI HPI: 05/25/18 09:25 Ms Tian is a 73 yo F h/o atypical chest pain, hyperlipidemia, /AI, PAF, type 2 DM, HTN, diastolic dysfunction, pulm HTN who presents to the ER due to shortness of breath. Pt was well before bed last night. She awoke with chest tightness and shortness of breath this morning. No orthopnea, no lower extremity edema (+) dry cough No fevers or chills No abdominal pain, nausea, vomiting, diarrhea No palpitations Pt is compliant with all medications, including diuretics Cardiac History: Followed at [facility], Cathetherization done 2012 with minimal CAD, Nuclear stress test September 2016 ECHO demonstrates Pulmonary HTN Mild thoracic aneurysm ECHO ejection fraction of 55-60% (October 2017) 05/25/18 09:41 Meds: Metoprolol, Atorvastatin, Apixaban, Aricept, Linagliptin/Metformin HCl, Loratadine, Ranitidine HCl, Amlodipine/Valsartan 05/25/18 09:47 05/25/18 10:29 - Physicial Exam PE: 05/25/18 09:25 Selected Entries 05/25/18 08:48 Temperature 98.7 F Pulse Rate 78 Respiratory 16 Rate Blood Pressure 175/71 H O2 Sat by Pulse 96 Oximetry (%) PHYSICAL EXAM GENERAL: Awake, alert, and fully oriented, in no acute distress. Persian speaking HEAD: Normal EYES: Pupils equal, round and reactive to light, extraocular movements intact, sclera anicteric, conjunctiva clear. No lid lag. EARS, NOSE, THROAT: Ears normal, nares patent, oropharynx clear without exudates. Moist mucous membranes. NECK: Normal range of motion, supple without lymphadenopathy, JVD, or masses. LUNGS: Breath sounds equal, clear to auscultation bilaterally. No wheezes, and no crackles. No accessory muscle use. HEART:Irregular with murmur, rub or gallop. ABDOMEN: Soft, nontender, not distended, normoactive bowel sounds, no guarding, no rebound MUSCULOSKELETAL: Normal range of motion at all joints. No bony deformities or tenderness. No CVA tenderness. LOWER EXTREMITIES: 2+ pulses, warm, well-perfused. No calf tenderness, no edema. NEUROLOGICAL: Cranial nerves II-XII intact. Normal speech. Normal not tested PSYCHIATRIC: Cooperative. Good eye contact. Appropriate mood and affect. SKIN: Warm, dry, normal turgor, no rashes or lesions noted, normal capillary refill. 05/25/18 09:26 05/25/18 10:28 - Medical Decision Making DD: Pneumonia, Bronchitis, viral uri, CHF, ACS, Unlikely PE given Eliquis 05/25/18 09:30 EKG - SR rate of 69 bpm, intervals abn - pr: 216 ms (prolonged), ARS 100ms, ATc - 462ms, t wave inversion I, aVL 05/25/18 10:28 Laboratory Tests 05/25/18 05/25/18 09:24 09:24 WBC 6.4 Hgb 12.0 Hct 34.7 Plt Count 203 INR 0.96 05/25/18 10:32 05/25/18 10:33 CXR: Cardiomegaly, no effusion 05/25/18 11:03 Laboratory Tests 05/25/18 05/25/18 05/25/18 09:24 09:24 09:45 INR 0.96 BUN 12 Creatinine 1.0 Creatine Kinase 74 Troponin I < 0.02 B-Natriuretic Peptide 1381.8 H Influenza A (Rapid) Negative Influenza B (Rapid) Negative Group A Strep Rapid 05/25/18 09:50 INR BUN Creatinine Creatine Kinase Troponin I B-Natriuretic Peptide Influenza A (Rapid) Influenza B (Rapid) Group A Strep Rapid Negative 05/25/18 12:08 Ambulatory saturation 99% Pt reports that she feels better Pt risk factors determine that she needs to be placed on observation Pt refusing this Pt son also refusing to allow repeat labs 05/25/18 12:38 Pt leaving AMA Note: The patient insists on leaving the emergency dept and is signing out against medical advice. The patient understands the risks and complications that may result from the refusal of medical care and admission which includes and permanent disability. The patient has the mental capacity of understanding the risks of refusing care and is capable of making an informed decision. The patient was instructed to return to the emergency department should she change her mind regarding medical care or should her condition worsen. The patient signed the Against Medical Advice form. Heart Score/ECG Review - History History: Slightly suspicious - Electrocardiogram EKG: Normal - Age Age: >/= 65 - Risk Factors Risk Factors Heart Score: Yes Hx Hypercholesterolemia, Yes Hx Hypertension, Yes Hx Diabetes Based on the list above the patient has:: >/=3 risk factors or Hx atherosclerotic disease - Troponin Troponin: </= normal limit - Score Heart Score - Total: 4
[2018-05-25] MEDS ORDERED: ACETAMINOPHEN 1000 MG/100 ML VIAL (NON FORMULARY) IVPB ONE (09:41)
[2018-05-25] MEDS ORDERED: ACETAMINOPHEN INJECTION 100 ML IVPB ONE (09:42)
--- NOTE | 2018-05-25 09:43 | PDOC ---
History of Present Illness - General Chief Complaint: Shortness of Breath Stated Complaint: Shortness of Breath Time Seen by Provider: 05/25/18 09:13 - History of Present Illness Initial Comments: 05/25/18 09:43 This is 73-year-old female with h/o atypical chest pain, CVA with right-sided residual weakness, hyperlipidemia, /AI, PSVT, type 2 DM, HTN, diastolic dysfunction, pulm HTN presents today with dry cough, shortness of breath and chest pain for the past day. Past History - Past Medical History Allergies/Adverse Reactions: Allergies Allergy/AdvReac Type Severity Reaction Status Date / Time morphine Allergy Intermediate Hives Verified 12/03/17 06:51 Home Medications: Ambulatory Orders Metoprolol Tartrate [Lopressor -] 50 mg PO BID 09/13/12 Zolpidem Tartrate [Ambien] 10 mg PO HS 09/13/12 Apixaban [Eliquis] 5 mg PO BID 02/13/15 Ergocalciferol (Vitamin D2) [Vitamin D] 50,000 unit PO WEEKLY 03/07/15 Donepezil HCl [Aricept] 10 mg PO DAILY 11/02/17 Linagliptin/Metformin HCl [Jentadueto 2.5 mg-500 mg Tab] 1 each PO DAILY Loratadine [Claritin] 10 mg PO DAILY 11/02/17 Amlodipine/Valsartan [Exforge 10-320 mg Tablet] 10 - 320 mg PO DAILY 12/03/17 Acetaminophen [Tylenol .Regular Strength -] 650 mg PO Q4H PRN tablet 12/04/17 Atorvastatin Ca [Lipitor] 20 mg PO DAILY 05/25/18 Ibandronate Sodium [Boniva] 150 mg PO DAILY 05/25/18 Methocarbamol [Robaxin -] 750 mg PO BID PRN 05/25/18 Omeprazole 40 mg PO DAILY 05/25/18 Simethicone 80 mg PO ASDIR PRN 05/25/18 Zolpidem Tartrate [Ambien] 10 mg PO HS 05/25/18 metFORMIN HCL [Metformin HCl] 500 mg PO DAILY 05/25/18 Anemia: Yes (MANY YRS AGO) Asthma: Yes (CONTROLLED) Cancer: No Cardiac Disorders: Yes (H/O ARRHYTHMIA?) CVA: Yes (X 2 MANY YRS AGO) COPD: No CHF: No Dementia: No (ON ARICEPT FOR PREVENTION) Diabetes: Yes (X 4-5 YRS) GI Disorders: Yes (GERD) Disorders: No HTN: Yes Hypercholesterolemia: Yes Liver Disease: No Psychiatric Problems: Yes (depression,insomnia) Seizures: No Thyroid Disease: No - Surgical History Abdominal Surgery: Yes (GASTRIC BYPASS) Appendectomy: Yes Cardiac Surgery: Yes Cholecystectomy: Yes Lung Surgery: No Neurologic Surgery: No Orthopedic Surgery: Yes (RIGHT FOOT SURGERY) - Immunization History Immunization Up to Date: Yes - Suicide/Smoking/Psychosocial Hx Smoking Status: No Smoking History: Never smoked Have you smoked in the past 12 months: No Number of Cigarettes Smoked Daily: 0 Information on smoking cessation initiated: No Hx Alcohol Use: No Drug/Substance Use Hx: No Substance Use Type: None Hx Substance Use Treatment: No Review of Systems - Review of Systems Able to Perform ROS?: Yes Is the patient limited Lithuanian proficient: No Constitutional: No: Symptoms Reported HEENTM: Yes: Throat Pain Respiratory: Yes: Cough, Shortness of Breath. No: Productive cough Cardiac (ROS): Yes: Chest Pain ABD/GI: No: Symptoms Reported : No: Symptoms Reported Musculoskeletal: No: Symptoms Reported Integumentary: No: Symptoms Reported Neurological: No: Symptoms reported All Other Systems: Reviewed and Negative *Physical Exam - Vital Signs Last Vital Signs Temp Pulse Resp BP Pulse Ox 98.7 F 78 16 175/71 H 96 05/25/18 08:48 05/25/18 08:48 05/25/18 08:48 05/25/18 08:48 05/25/18 08:48 - Physical Exam General Appearance: Yes: Nourished, Appropriately Dressed. No: Apparent Distress HEENT: positive: EOMI, BRIGIDO, Normal ENT Inspection. negative: Tonsillar Exudate , Tonsillar Erythema Respiratory/Chest: positive: Chest Tender (over left chest), Lungs Clear, Normal Breath Sounds. negative: Respiratory Distress Cardiovascular: positive: Regular Rhythm, Regular Rate, S1, S2 Gastrointestinal/Abdominal: positive: Normal Bowel Sounds, Flat, Soft. negative : Tender Musculoskeletal: positive: Normal Inspection. negative: CVA Tenderness Extremity: positive: Normal Capillary Refill, Normal Inspection, Normal Range of Motion Integumentary: positive: Normal Color, Dry, Warm Moderate Sedation - Procedure Monitoring Vital Signs: Procedure Monitoring Vital Signs Temperature 98.7 F 05/25/18 08:48 Pulse Rate 78 05/25/18 08:48 Respiratory Rate 16 05/25/18 08:48 Blood Pressure 175/71 H 05/25/18 08:48 O2 Sat by Pulse Oximetry (%) 96 05/25/18 08:48 Heart Score/ECG Review - History History: Slightly suspicious - Electrocardiogram EKG: Normal - Age Age: >/= 65 - Risk Factors Risk Factors Heart Score: Yes Hx Hypercholesterolemia, Yes Hx Hypertension, Yes Hx Diabetes Based on the list above the patient has:: >/=3 risk factors or Hx atherosclerotic disease - Troponin Troponin: </= normal limit - Score Heart Score - Total: 4 ED Treatment Course - LABORATORY CBC & Chemistry Diagram: 05/25/18 09:24 05/25/18 09:24 Medical Decision Making - Medical Decision Making 05/25/18 10:25 PNA vs viral URI vs flu vs strep vs CHF exacerbation vs pulm hypertension 05/25/18 12:03 Patient symptoms are vague but she was saturating in the low 90's on room air, back to 100 on 2L NC. Usually has low O2 on previous visit Flu negative, step negative, xray unremarquable, bnp is lower than it ever was in her chart. This seems like a simple URI. Patient feels much relief with O2. Ambulates at 99% on room air. However heart score is 4, will repeat q3 troponin. 05/25/18 12:14 05/25/18 12:36 After long discussion with patient and her son about the risks of not staying for observation, patient asked to sign AMA form. *DC/Admit/Observation/Transfer Diagnosis at time of Disposition: Atypical chest pain - Discharge Dispostion Disposition: AGAINST MEDICAL ADVICE Condition at time of disposition: Improved - Referrals Referrals: Yomaira Hernandez MD [Primary Care Provider] - - Patient Instructions Printed Discharge Instructions: DI for Atypical Chest Pain Additional Instructions: You decided to sign against medical advice. Please call 911 and come right away to the emergency department if you happy to feel worsening, new, or concerning symptoms such as chest pain or shortness of breath. - Post Discharge Activity
[2018-05-25 09:56] LABS: BASO % 0.4 % (0-2.0); EOS % 3.7 % (0-4.5); HEMATOCRIT 34.7 % (32.4-45.2); LYMPH % 20.2 % (8-40); MCH 30.1 pg (25.7-33.7); MCHC 34.6 g/dl (32.0-36.0); MEAN CELL VOLUME 87.2 fl (80-96); MEAN PLT VOLUME 8.6 fl (7.5-11.1); MONO % 6.7 % (3.8-10.2); PLATELET COUNT 203 K/MM3 (134-434); RBC 3.98 M/mm3 (3.60-5.2); RDW 14.8 % (11.6-15.6); WHITE BLOOD COUNT 6.4 K/mm3 (4.0-10.0)
[2018-05-25 10:14] LABS: INR 0.96 (0.83-1.09); PROTHROMBIN TIME (PATIENT) 11.3 SEC (9.7-13.0)
[2018-05-25 10:35] LABS: ALBUMIN 3.2 g/dl (3.4-5.0); ALK PHOS 153 U/L (45-117); ANION GAP 6 MMOL/L (8-16); BILIRUBIN,TOTAL 0.6 mg/dL (0.2-1); BLOOD UREA NITROGEN 12 mg/dL (7-18); CHLORIDE 110 mmol/L (98-107); CO2 29 mmol/L (21-32); GLUCOSE,RANDOM 90 mg/dL (74-106); N-TERMINAL BNP 1381.8 pg/ml (5-125); POTASSIUM 4.3 mmol/L (3.5-5.1); SGOT/AST 16 U/L (15-37); SGPT/ALT 13 U/L (13-61); SODIUM 145 mmol/L (136-145); TOT PROT 6.3 g/dl (6.4-8.2)
[2018-05-25 11:16] LABS: URINE APPEARANCE CLEAR; URINE BILIRUBIN NEGATIVE (<2.0 mg/dL); URINE COLOR STRAW; URINE GLUCOSE (UA) NEGATIVE (NEGATIVE); URINE KETONE NEGATIVE (NEGATIVE); URINE LEUK ESTERASE NEGATIVE (NEGATIVE); URINE NITRITE NEGATIVE (NEGATIVE); URINE PROTEIN NEGATIVE (NEGATIVE); URINE UROBILINOGEN NEGATIVE mg/dL (0.2-1.0)
[2018-05-25 12:41] VITALS: BP 173/86; PULSE 63
--- NOTE | 2018-05-25 19:13 | EKG ---
Test Reason : Blood Pressure : / mmHG Vent. Rate : 069 BPM Atrial Rate : 069 BPM P-R Int : 216 ms QRS Dur : 100 ms QT Int : 432 ms P-R-T Axes : 032 001 104 degrees QTc Int : 462 ms SINUS RHYTHM WITH 1ST DEGREE A-V BLOCK MODERATE VOLTAGE CRITERIA FOR LVH, MAY BE NORMAL VARIANT T WAVE ABNORMALITY, CONSIDER LATERAL ISCHEMIA ABNORMAL ECG WHEN COMPARED WITH ECG OF 03-DEC-2017 07:09, SINUS RHYTHM HAS REPLACED ATRIAL FIBRILLATION ST NO LONGER DEPRESSED IN INFERIOR LEADS NON-SPECIFIC CHANGE IN ST SEGMENT IN ANTERIOR LEADS Confirmed by ORESTES GRECO MD ([id number]) on 05/25/2018 7:13:01 PM Referred By: Confirmed By:ORESTES GRECO MD
== END 2018-05-25 12:41 | disposition left against medical advice (07) ==
LOC: JER 08:48
PROC: 3E033NZ Introduction of Analgesics, Hypnotics, Sedatives into Peripheral Vein, Percutaneous Approach (ICD-10-PCS; principal; 2018-05-25)
DX: R07.9 Chest pain, unspecified (principal); I25.10 Atherosclerotic heart disease of native coronary artery without angina pectoris; Z98.61 Coronary angioplasty status; I11.0 Hypertensive heart disease with heart failure; I50.30 Unspecified diastolic (congestive) heart failure; E78.5 Hyperlipidemia, unspecified; E78.00 Pure hypercholesterolemia, unspecified; E11.9 Type 2 diabetes mellitus without complications; Z79.84 Long term (current) use of oral hypoglycemic drugs; I69.851 Hemiplegia and hemiparesis following other cerebrovascular disease affecting right dominant side; J45.909 Unspecified asthma, uncomplicated; F03.90 Unspecified dementia, unspecified severity, without behavioral disturbance, psychotic disturbance, mood disturbance, and anxiety; K21.9 Gastro-esophageal reflux disease without esophagitis; F32.9 Major depressive disorder, single episode, unspecified; G47.00 Insomnia, unspecified
CPT/HCPCS: 36415; 71045-TC-FY; 80053; 81003; 82550; 83735; 83880; 84484; 85025; 85610; 87070; 87077; 87086; 87804; 87880; 93005; 93010; 99284-25; J0131

== ENCOUNTER 2018-07-21 12:06 | Emergency (ER) | payer OTHER ==
[2018-07-21] MEDS ORDERED: ALBUTEROL SO4 0.083% IH SOL 2.5 MG/3 ML VIAL.NEB. NEB ONE (12:15)
--- NOTE | 2018-07-21 12:25 | PDOC ---
Attending Attestation - Resident Resident Name: Mojgan Helms - ED Attending Attestation I have performed the following: I have examined & evaluated the patient, The case was reviewed & discussed with the resident, I agree w/resident's findings & plan, Exceptions are as noted - HPI HPI: 07/21/18 12:17 PCP: Cardiology Dr. Yobani Mckenna Neuro Dr. [place] Ms Tian is a 73-year-old female brought in to the ER by her son due to cough, congestion, chest tightness, wheezing for 3 days. Pt reports that her symptoms began after leaving the grocery store on Temp at home yesterday 101 Pt reports cough productive of white phlegm, feeling chest congestion she has tried taking her albuterol inhaler but this only temporarily improves her symptoms No nausea, vomiting, diarrhea, abdominal pain PAST MEDICAL HISTORY: Type 2 diabetes, hypertension, high cholesterol, CVA with residual right-sided weakness, GERD, Hx of thoracic aneurysm,diabetic neuropathy, Pulmonary hypertension CARDIAC HISTORY: catheterization done in 2010 in 2012 with minimal coronary disease, ECHO: 65-70% mild MR, mild AI, and mild to moderate Nuclear stress test on September 2016 which was normal PAST SURGICAL HISTORY: Hysterectomy, GB sx, appendectomy,catheterization done in 2012 Social History: Smoking:No, Alcohol:No, Drugs: No Family History: non contributory Allergies: morphine Allergy (Intermediate, Verified 12/03/17 06:51) Hives 07/21/18 12:25 - Physicial Exam PE: 07/21/18 12:42 GENERAL: Awake, alert, and fully oriented, in no acute distress. Syriac speaking HEAD: Normal EYES: Pupils equal, round and reactive to light, extraocular movements intact, sclera anicteric, conjunctiva clear. EARS, NOSE, THROAT: Ears normal, nares patent, oropharynx clear without exudates. Moist mucous membranes. NECK: Normal range of motion, supple without lymphadenopathy LUNGS: Breath sounds equal, clear to auscultation bilaterally. Expiratory coughing, No wheezes,No accessory muscle use. HEART: Regular rate and rhythm, Murmur LSB ABDOMEN: Soft, nontender, not distended, normoactive bowel sounds, no guarding, no rebound MUSCULOSKELETAL: Normal range of motion at all joints. No bony deformities or tenderness. No CVA tenderness. LOWER EXTREMITIES: 2+ pulses, warm, well-perfused. NEUROLOGICAL: Cranial nerves II-XII intact. Normal speech. Normal not tested PSYCHIATRIC: Cooperative. Good eye contact. Appropriate mood and affect. SKIN: Warm, dry, normal turgor, no rashes or lesions noted, normal capillary refill. - Medical Decision Making 07/21/18 12:43 73 yo F presenting with a cough and viral syndrome Will do basic labs to r/o CHF Will CXR, EKG, Basic labs, Nebs Will do Influenza swab Will re assess EKG - NSR rate of 65 bpm, axis nml, intervals abn - pr:224ms, QRS: 100ms, QTc: 497ms, no st elevation or depression 07/21/18 13:09 CXR - ? right basilar infiltrate, no signs of congestion 07/22/18 07:52 Laboratory Tests 07/21/18 07/21/18 07/21/18 12:54 12:54 12:54 WBC 7.4 Hgb 12.4 Hct 37.4 Plt Count 193 BUN 20 H Creatinine 1.0 Creatine Kinase 55 Troponin I < 0.02 B-Natriuretic Peptide 1691.0 H Influenza A (Rapid) Influenza B (Rapid) 07/21/18 12:57 WBC Hgb Hct Plt Count BUN Creatinine Creatine Kinase Troponin I B-Natriuretic Peptide Influenza A (Rapid) Negative Influenza B (Rapid) Negative Upon re assessment, pt states she feels better Will give Azithromycin as pt right basilar infiltrate, persistent cough Will also give cough medications as well Follow up with PMD Likely viral syndrome Unlikely CHF (no lower extremity edema, orthopnea, PND)
[2018-07-21 12:26] VITALS: BP 166/79; PULSE 68; TEMP 98.9; BMI 38.4
--- NOTE | 2018-07-21 12:39 | PDOC ---
History of Present Illness - General Chief Complaint: Cold Symptoms Stated Complaint: COUGH Time Seen by Provider: 07/21/18 12:13 History Source: Patient - History of Present Illness Initial Comments: 07/21/18 12:49 The patient is a 73 year old female with a PMH of CVA (s/p R sided weakness), Thoracic aneursym, Pulmonary HTN, DM, Peripheral neuropathy, HLD who presents to our ED today c/o 3 day h/o cough, chest tightness, wheezing. Febrile to 101 yesterday. Cough is intermittently productive of whitish sputum. Use of Albuterol inhaler with minimal relief. The patient denies pressure like chest pain, shortness of breath, abdominal pain , nausea/vomiting, diarrhea/constipation, numbness/tingling. Allergy: Morphine Surgical: Cardiac Cath, Hysterectomy, Cholecystectomy Social: denies toxic habits PMD: Dr. Howell Past History - Past Medical History Allergies/Adverse Reactions: Allergies Allergy/AdvReac Type Severity Reaction Status Date / Time morphine Allergy Intermediate Hives Verified 07/21/18 12:09 Home Medications: Ambulatory Orders Metoprolol Tartrate [Lopressor -] 50 mg PO BID 09/13/12 Zolpidem Tartrate [Ambien] 10 mg PO HS 09/13/12 Apixaban [Eliquis] 5 mg PO BID 02/13/15 Ergocalciferol (Vitamin D2) [Vitamin D] 50,000 unit PO WEEKLY 03/07/15 Donepezil HCl [Aricept] 10 mg PO DAILY 11/02/17 Linagliptin/Metformin HCl [Jentadueto 2.5 mg-500 mg Tab] 1 each PO DAILY Loratadine [Claritin] 10 mg PO DAILY 11/02/17 Amlodipine/Valsartan [Exforge 10-320 mg Tablet] 10 - 320 mg PO DAILY 12/03/17 Acetaminophen [Tylenol .Regular Strength -] 650 mg PO Q4H PRN tablet 12/04/17 Atorvastatin Ca [Lipitor] 20 mg PO DAILY 05/25/18 Ibandronate Sodium [Boniva] 150 mg PO DAILY 05/25/18 Omeprazole 40 mg PO DAILY 05/25/18 metFORMIN HCL [Metformin HCl] 500 mg PO DAILY 05/25/18 Azithromycin [Zithromax Tri-Levon (3 DAYS) -] 500 mg PO DAILY #3 tablet 07/21/18 Benzonatate [Tessalon Pearls -] 100 mg PO TID PRN #21 capsule 07/21/18 Anemia: Yes (MANY YRS AGO) Asthma: Yes Cancer: No Cardiac Disorders: Yes (H/O ARRHYTHMIA?) CVA: Yes (X 2 MANY YRS AGO) COPD: No CHF: No Dementia: No (ON ARICEPT FOR PREVENTION) Diabetes: Yes GI Disorders: Yes (GERD) Disorders: No HTN: Yes Hypercholesterolemia: Yes Liver Disease: No Psychiatric Problems: Yes (depression,insomnia) Seizures: No Thyroid Disease: No - Surgical History Abdominal Surgery: Yes (GASTRIC BYPASS) Appendectomy: Yes Cardiac Surgery: Yes Cholecystectomy: Yes Lung Surgery: No Neurologic Surgery: No Orthopedic Surgery: Yes (RIGHT FOOT SURGERY) - Immunization History Immunization Up to Date: Yes - Suicide/Smoking/Psychosocial Hx Smoking Status: No Smoking History: Never smoked Have you smoked in the past 12 months: No Number of Cigarettes Smoked Daily: 0 Information on smoking cessation initiated: No Hx Alcohol Use: No Drug/Substance Use Hx: No Substance Use Type: None Hx Substance Use Treatment: No *Physical Exam - Vital Signs Last Vital Signs Temp Pulse Resp BP Pulse Ox 98.9 F 68 20 166/79 95 07/21/18 12:07 07/21/18 12:07 07/21/18 12:07 07/21/18 12:07 07/21/18 12:07 Moderate Sedation - Procedure Monitoring Vital Signs: Procedure Monitoring Vital Signs Temperature 98.9 F 07/21/18 12:07 Pulse Rate 68 07/21/18 12:07 Respiratory Rate 20 07/21/18 12:07 Blood Pressure 166/79 07/21/18 12:07 O2 Sat by Pulse Oximetry (%) 95 07/21/18 12:07 Heart Score/ECG Review - ECG Impressions Comment:: 07/21/18 18:48 NSR rate of 65 bpm, axis nml, intervals abn - pr:224ms, QRS: 100ms, QTc: 497ms, no st elevation or depression ED Treatment Course - LABORATORY CBC & Chemistry Diagram: 07/21/18 12:54 07/21/18 12:54 Medical Decision Making - Medical Decision Making 07/21/18 14:13 73 year old female with viral URI like symptoms. Frontal diagnosis: PNA, Viral URI, r/o ACS, r/o acute onset CHF, Influenza EKG non-ischmeic as documented in EKG section of EMR. 73 yo F presenting with a cough and viral syndrome Will do basic labs to r/o CHF Will CXR, EKG, Basic labs, Nebs Will do Influenza swab Will re assess 07/21/18 13:09 CXR - no infiltrate, no signs of congestion 07/21/18 18:47 *DC/Admit/Observation/Transfer Diagnosis at time of Disposition: Viral syndrome - Discharge Dispostion Disposition: HOME Condition at time of disposition: Good Decision to Admit order: No - Prescriptions Prescriptions: Azithromycin [Zithromax Tri-Levon (3 DAYS) -] 500 mg PO DAILY #3 tablet Benzonatate [Tessalon Pearls -] 100 mg PO TID PRN #21 capsule PRN Reason: Cough - Referrals - Patient Instructions Printed Discharge Instructions: How to Avoid a Cold or Flu, DI for Viral Upper Respiratory Infection -- Adult Additional Instructions: You can take Tylenol (up to 3200 mg daily) for fevers or body aches. We have sent a prescription to your pharmacy please take the entire prescribed course. Follow up with Dr. Howell in the next 3 days. Return to the Emergency Department for any new/worsening/concerning symptoms including increased fevers, chest pain, cough or shortness of breath - Post Discharge Activity
[2018-07-21 13:11] LABS: BASO % 0.5 % (0-2.0); EOS % 3.6 % (0-4.5); HEMATOCRIT 37.4 % (32.4-45.2); HEMOGLOBIN 12.4 GM/dl (10.7-15.3); MCH 29.6 pg (25.7-33.7); MCHC 33.2 g/dl (32.0-36.0); MEAN CELL VOLUME 89.3 fl (80-96); MEAN PLT VOLUME 8.5 fl (7.5-11.1); MONO % 7.4 % (3.8-10.2); NEUT % 75.5 % (42.8-82.8); PLATELET COUNT 193 K/MM3 (134-434); RBC 4.19 M/mm3 (3.60-5.2); RDW 13.7 % (11.6-15.6); WHITE BLOOD COUNT 7.4 K/mm3 (4.0-10.8)
[2018-07-21 13:19] LABS: ALBUMIN 3.5 g/dl (3.4-5.0); ALK PHOS 118 U/L (45-117); ANION GAP 6 MMOL/L (8-16); BILIRUBIN,TOTAL 0.7 mg/dl (0.2-1); BLOOD UREA NITROGEN 20 mg/dl (7-18); CALCIUM 8.5 mg/dl (8.5-10); CHLORIDE 106 mmol/L (98-107); CO2 27 mmol/L (21-32); GLUCOSE,RANDOM 84 mg/dl (74-106); POTASSIUM 4.4 mmol/L (3.5-5.1); SGOT/AST 24 U/L (15-37); SGPT/ALT 11 U/L (13-61); SODIUM 139 mmol/L (136-145); TOT PROT 6.6 g/dl (6.4-8.2)
--- NOTE | 2018-07-22 22:14 | EKG ---
Test Reason : Blood Pressure : / mmHG Vent. Rate : 065 BPM Atrial Rate : 065 BPM P-R Int : 224 ms QRS Dur : 100 ms QT Int : 478 ms P-R-T Axes : -15 023 084 degrees QTc Int : 497 ms SINUS RHYTHM WITH 1ST DEGREE A-V BLOCK PROLONGED QT ABNORMAL ECG WHEN COMPARED WITH ECG OF 25-MAY-2018 09:04, NO SIGNIFICANT CHANGE WAS FOUND Confirmed by AGUSTIN SHARIF, SRAVANI ([id number]) on 07/22/2018 10:13:52 PM Referred By: CITLALLI OMALLEY Confirmed By:SRAVANI VELEZ MD
== END 2018-07-21 15:02 | disposition home or self-care (01) ==
LOC: FER 12:06
DX: B34.9 Viral infection, unspecified (principal); J45.909 Unspecified asthma, uncomplicated; I49.9 Cardiac arrhythmia, unspecified; E78.00 Pure hypercholesterolemia, unspecified; F32.9 Major depressive disorder, single episode, unspecified; Z98.84 Bariatric surgery status; E11.9 Type 2 diabetes mellitus without complications; I10 Essential (primary) hypertension
CPT/HCPCS: 36415; 71045-TC-FY; 80053; 82550; 83880; 84484; 85025; 87804; 93005; 99282-25

== ENCOUNTER 2019-05-25 14:32 | Emergency (ER) | payer OTHER ==
[2019-05-25 15:00] VITALS: TEMP 97.3; BMI 36.8
[2019-05-25] MEDS ORDERED: ONDANSETRON 4 MG/2 ML VIAL IVPUSH ONE (15:21)
[2019-05-25] MEDS ORDERED: FAMOTIDINE 20 MG/50 ML IVPB 20 MG/50 ML MG IVPB ONE ×2 (15:21→15:41)
[2019-05-25] MEDS ORDERED: LACTATED RINGERS SOLUTION 1000 ML INFUS.BAG IV ONE (15:21)
[2019-05-25] MEDS ORDERED: PANTOPRAZOLE SODIUM 40 MG VIAL ONE (15:41)
[2019-05-25] MEDS ORDERED: ONDANSETRON 4 MG/2 ML VIAL ONE (15:41)
--- NOTE | 2019-05-25 16:03 | PDOC ---
History of Present Illness <Hanane Garsia - Last Filed: 05/25/19 17:13> - General History Source: Patient, Family (Daughter present at bedside.), Old Records, Pt declined Senior Examiner (Pt declined telephone traslator. Requested her daughter provide Wolof translation.) Exam Limitations: Language Barrier - History of Present Illness Initial Comments: HPI: 74 y/o female presenting to [facility] ER complaining of epigastric pain with "too much gas" for the past week. Started to feel "dizzy" this morning, which is further described as generalized fatigue and a diffuse headache. RN reports observing the pt walk to the bathroom without difficulty. Reports multiple episodes of vomiting, last was two days ago. Emesis described as nonbloody. Denies diarrhea, chest pain, or SOB. Has not used prescribed Zantac, but has taken prescribed Omeprazole (last this AM). Decreased PO intake, but believes pain is worse immediately after eating. Has been evaluated by an unknown host and hostess with EGD 2-3 years ago. Unable to recall the results. Pt was evaluated by her PCP yesterday and told her symptoms were likely viral in origin. Daughter expressed concern that no tests were performed. Medical Hx: - NIDDM (On Jentadueto) - HTN - Hyperparathyroidism - Primary Insomnia - Left Thalamic chronic lacunar infarct - Moderate Periventricular Chronic Microvascular Ischemic Disease - Paroxysmal Atrial Fibrillation (On Eliquis) - Urinary Incontinence - Polyneuropathy - Major Depressive Disorder - Obesity - GERD w/ Esophagitis (On Omeprazole, last used this AM) - H/o Venous stasis dermatitis of right lower extremity Surgical Hx: - Cholecystectomy - Gastric Bypass Surgery (unknown approach) 20 years ago at [facility] (no reported correction complications) - Hysterectomy - Review of Systems: In addition to that documented in the HPI above, the additional ROS was obtained : Constitutional- Denies fevers or chills Head- Denies vision changes ENMT- Denies sore throat CV- Denies chest pain Resp- Denies SOB GI- Per HPI - Denies painful urination, hematuria MSK- Denies recent trauma Skin- Denies new rashes Neuro- Denies new numbness or tingling or weakness Endocrine- Denies polyuria Heme- Denies bleeding or bruising Physical Examination: Vital signs and nursing notes reviewed. Constitutional- Nontoxic, well-developed, well-nourished elderly adult female in no acute distress or obvious discomfort. Found semi-fowlers on hospital bed. Head- Normocephalic. No obvious external signs of trauma. Eyes- PERRL. EOMI. No vertical or horizontal nystagmus. Sclerae white. Throat- Oral cavity and pharynx normal. No inflammation, swelling, exudate, or lesions. Teeth and gingiva in good general condition. Neck- Supple, trachea is midline. Cardiovascular / Chest- Regular rate and regular rhythm. No murmur, rubs, clicks , or gallops. Peripheral pulses- radial pulses full. No pretibial edema. Respiratory- Breathing unlabored. Equal chest rise and fall. Clear to auscultation bilaterally. No stridor, no wheezing, no rhonchi. Gastrointestinal- abdomen is tender in epigastric region without rebound, guarding, or withdrawal. Globally, abdomen is soft and nondistended. No overlying skin lesions or obvious signs of trauma. Post surgical scars to midline above and below umbilicus. Neuro- Alert and oriented x4. Moving all four extremities spontaneously. No facial asymmetry. No slurred speech. Skin- Warm, dry, and intact. Psych- Affect- appropriate. Mood- normal. Speech was non-labored, non- pressured. MDM: 74 y/o female presenting with one week of epigastric abdominal pain with reflux symptoms. Poor PO intake today with feelings of generalized fatigue and headache. Afebrile. Vitals unremarkable for hypotension or tachycardia. Physical exam as described above. No acute abdominal signs. Suspect likely GERD vs PUD vs acute gastritis vs diabetic gastroparesis. Low suspicion for hepatitis , biliary colic, pancreatitis, SBO, acute cystitis (extremely low suspicion but pt is an elderly female diabetic). Ordered Pepcid, Reglan, Zofran, and IVFB for symptom relief. Reviewed laboratory data and EKG. No clinically significant derangements. Pt reassessed. No further vomiting in the department. Repeat abdominal exam unchanged from initial. No acute abdominal signs. Continue to suspect reflux vs gastroparesis. Possible viral gastritis. Discussed physical exam findings and laboratory results with pt and family. Answered all questions. Provided return precautions. Pt and family expressed verbal understanding and agreement with plan to discharge home with outpatient follow up. Provided copies of todays results. Prescribed Reglan and Mylanta. Encouraged pt to f/u with PCP and GI clinics. Arvind Ferrell M.D., PGY2 Emergency Medicine Resident <Arvind Ferrell - Last Filed: 05/25/19 21:08> - General Chief Complaint: Pain Stated Complaint: ABD PAIN Time Seen by Provider: 05/25/19 15:03 Past History <SunHanane Brunson - Last Filed: 05/25/19 17:13> - Past Medical History Anemia: Yes (MANY YRS AGO) Asthma: Yes Cancer: No Cardiac Disorders: Yes (H/O ARRHYTHMIA?) CVA: Yes (X 2 MANY YRS AGO) COPD: No CHF: No Dementia: No (ON ARICEPT FOR PREVENTION) Diabetes: Yes GI Disorders: Yes (GERD) Disorders: No HTN: Yes Hypercholesterolemia: Yes Liver Disease: No Psychiatric Problems: Yes (depression,insomnia) Seizures: No Thyroid Disease: No - Surgical History Abdominal Surgery: Yes (GASTRIC BYPASS) Appendectomy: Yes Cardiac Surgery: Yes Cholecystectomy: Yes Lung Surgery: No Neurologic Surgery: No Orthopedic Surgery: Yes (RIGHT FOOT SURGERY) - Immunization History Immunization Up to Date: Yes - Psycho Social/Smoking Cessation Hx Smoking Status: No Smoking History: Never smoked Have you smoked in the past 12 months: No Number of Cigarettes Smoked Daily: 0 Hx Alcohol Use: No Drug/Substance Use Hx: No Substance Use Type: None Hx Substance Use Treatment: No <Arvind Ferrell - Last Filed: 05/25/19 21:08> - Past Medical History Allergies/Adverse Reactions: Allergies Allergy/AdvReac Type Severity Reaction Status Date / Time morphine Allergy Intermediate Hives Verified 05/25/19 14:44 Home Medications: Ambulatory Orders Metoprolol Tartrate [Lopressor -] 50 mg PO BID 09/13/12 Zolpidem Tartrate [Ambien] 10 mg PO HS 09/13/12 Apixaban [Eliquis] 5 mg PO BID 02/13/15 Ergocalciferol (Vitamin D2) [Vitamin D] 50,000 unit PO WEEKLY 03/07/15 Donepezil HCl [Aricept] 10 mg PO DAILY 11/02/17 Linagliptin/Metformin HCl [Jentadueto 2.5 mg-500 mg Tab] 1 each PO DAILY Loratadine [Claritin] 10 mg PO DAILY 11/02/17 Amlodipine/Valsartan [Exforge 10-320 mg Tablet] 10 - 320 mg PO DAILY 12/03/17 Acetaminophen [Tylenol .Regular Strength -] 650 mg PO Q4H PRN tablet 12/04/17 Atorvastatin Ca [Lipitor] 20 mg PO DAILY 05/25/18 Ibandronate Sodium [Boniva] 150 mg PO DAILY 05/25/18 Omeprazole 40 mg PO DAILY 05/25/18 metFORMIN HCL [Metformin HCl] 500 mg PO DAILY 05/25/18 Azithromycin [Zithromax Tri-Levon (3 DAYS) -] 500 mg PO DAILY #3 tablet 07/21/18 Benzonatate [Tessalon Pearls -] 100 mg PO TID PRN #21 capsule 07/21/18 Mag Hydrox/Al Hydrox/Simeth [Mylanta Suspension -] 30 ml PO Q6H PRN #1 bottle Metoclopramide HCl [Reglan -] 10 mg PO TID PRN #12 tablet 05/25/19 *Physical Exam - Vital Signs Last Vital Signs Temp Pulse Resp BP Pulse Ox 97.3 F L 73 18 158/84 97 05/25/19 14:35 05/25/19 14:35 05/25/19 14:35 05/25/19 14:35 05/25/19 14:57 <Hanane Garsia - Last Filed: 05/25/19 17:13> - Vital Signs Last Vital Signs Temp Pulse Resp BP Pulse Ox 97.3 F L 73 18 158/84 97 05/25/19 14:35 05/25/19 14:35 05/25/19 14:35 05/25/19 14:35 05/25/19 14:57 <Arvind Ferrell - Last Filed: 05/25/19 21:08> ED Treatment Course - LABORATORY CBC & Chemistry Diagram: 05/25/19 16:00 05/25/19 16:00 - ADDITIONAL ORDERS Additional order review: Laboratory Results 05/25/19 05/25/19 05/25/19 16:26 16:00 16:00 Sodium 139 Potassium 4.0 Chloride 101 Carbon Dioxide 32 Anion Gap 6 L BUN 24.0 H Creatinine 1.3 Est GFR (CKD-EPI)AfAm 47.46 Est GFR (CKD-EPI)NonAf 40.95 Random Glucose 106 Lactic Acid 1.9 Calcium 9.2 Phosphorus 4.3 Magnesium 2.0 Total Bilirubin 0.6 AST 22 ALT 19 Alkaline Phosphatase 157 H Total Protein 7.7 Albumin 3.8 Lipase 136 Urine Color Yellow Urine Appearance Clear Urine pH 6.0 Ur Specific [place] 1.006 L Urine Protein Negative Urine Glucose (UA) Negative Urine Ketones Negative Urine Blood Negative Urine Nitrite Negative Urine Bilirubin Negative Urine Urobilinogen 0.2 Ur Leukocyte Esterase Negative 05/25/19 16:00 RBC 5.16 MCV 85.5 MCHC 32.4 RDW 15.3 MPV 9.1 Neutrophils % 62.3 Lymphocytes % 26.6 D Monocytes % 7.0 Eosinophils % 3.7 Basophils % 0.4 - Medications Given in the ED: ED Medications Discontinued Medications Generic Name Dose Route Start Last Admin Trade Name Alem PRN Reason Stop Dose Admin Famotidine/Sodium Chloride 20 mg in 50 mls @ 100 mls/hr 05/25/19 15:21 15:45 Pepcid 20 Mg Premixed Ivpb - IVPB 05/25/19 15:50 100 mls/hr ONCE ONE Administration Lactated Ringer's 1,000 ml 05/25/19 15:21 05/25/19 16:15 Lactated Ringers Solution IV 05/25/19 15:22 1,000 ml ONCE ONE Administration Metoclopramide HCl 10 mg 05/25/19 16:13 05/25/19 16:25 Reglan Injection - IVPUSH 05/25/19 16:14 10 mg ONCE ONE Administration Ondansetron HCl 4 mg 05/25/19 15:21 05/25/19 15:45 Zofran Injection IVPUSH 05/25/19 15:22 4 mg ONCE ONE Administration <Hanane Garsia - Last Filed: 05/25/19 17:13> - LABORATORY CBC & Chemistry Diagram: 05/25/19 16:00 05/25/19 16:00 <Arvind Ferrell - Last Filed: 05/25/19 21:08> Discharge - Discharge Information Problems reviewed: Yes - Admission No <Hanane Garsia - Last Filed: 05/25/19 17:13> <Arvind Ferrell - Last Filed: 05/25/19 21:08> - Discharge Information Clinical Impression/Diagnosis: Abdominal pain, Nausea and vomiting in adult, Dizziness Condition: Good Disposition: HOME - Additional Discharge Information Prescriptions: Mag Hydrox/Al Hydrox/Simeth [Mylanta Suspension -] 30 ml PO Q6H PRN #1 bottle PRN Reason: heartburn Metoclopramide HCl [Reglan -] 10 mg PO TID PRN #12 tablet PRN Reason: nausea vomiting - Follow up/Referral Referrals: Dom Soriano DO [Staff Physician] - Fouzia Voss MD [Staff Physician] - Jens Santos MD [Staff Physician] - - Patient Discharge Instructions Patient Printed Discharge Instructions: DI for Abdominal Pain-Adult, Nausea and Vomiting-Adult, DI for Dizziness-Nonvertigo Additional Instructions: 1) Please follow-up with your primary care doctor in the next 1-2 days. Please call tomorrow for for any urgent issues. you should see a host and hostess for specialist care of your abdominal pain. 2) You were given a copy of the tests performed today. Please bring the results with you and review them with your primary care doctor. Your laboratory / imaging results were normal, 3) If you have any worsening of symptoms or any other concerns please return to the ED immediately. Return if worsening symptoms including fevers, headache, vomiting, visual or hearing disturbances, abdominal pain, chest pain, shortness of breath, syncope, dehydration, inability to take things by mouth/vomiting, altered mental status, or worsening concerning symptoms. 4) Please continue taking your home medications as directed. your medications on discharge include reglan three times a day as needed for nausea/vomiting, maalox or mylanta every 6 hours with meals to prevent heart burn . side effects may include upset stomach, abdominal pain, vomiting, or diarrhea. do not drink alcohol with your medications. Stay well hydrated and rest adequately. Make an appointment. If you cannot follow-up with your primary care doctor please return to the ED ------- 1) Gene un seguimiento con murray mdico de atencin primaria en los prximos 1-2 saini. Llame maana para cualquier problema urgente. Debera precious a un gastroenterlogo para recibir atencin especializada de murray dolor abdominal. 2) Le dieron jin copia de las pruebas realizadas hoy. Traiga los resultados con usted y revselos con murray mdico de atencin primaria. Staci resultados de laboratorio / imagen fueron normales, 3) Si tiene algn empeoramiento de los sntomas o cualquier otra inquietud, regrese al servicio de urgencias de inmediato. Regrese si los sntomas empeoran , alexandra fiebre, dolor de sharon, vmitos, trastornos visuales o auditivos, dolor abdominal, dolor en el pecho, dificultad para respirar, sncope, deshidratacin , incapacidad para seb cosas por la boca / vmitos, estado mental alterado o empeoramiento de los sntomas. 4) Contine tomando staci medicamentos caseros segn las indicaciones. staci medicamentos al nithya incluyen reglan esthela veces al da segn sea necesario para las nuseas / vmitos, maalox o mylanta cada 6 horas con las comidas para prevenir la acidez estomacal. Los efectos secundarios pueden incluir malestar estomacal, dolor abdominal, vmitos o diarrea. No tome alcohol con staci medicamentos. Mantngase shelby hidratado y descanse adecuadamente. Gene jin cyndi. Si no puede hacer un seguimiento con murray mdico de atencin primaria, regrese al servicio de urgencias Print Language: NAMIBIAN
[2019-05-25] MEDS ORDERED: METOCLOPRAMIDE HCL INJECTION 10 MG/2 ML VIAL IVPUSH ONE (16:13)
[2019-05-25 16:22] LABS: BASO % 0.4 % (0-2.0); EOS % 3.7 % (0-4.5); HEMATOCRIT 44.2 % (32.4-45.2); HEMOGLOBIN 14.3 GM/dL (10.7-15.3); LYMPH % 26.6 % (8-40); MCH 27.7 pg (25.7-33.7); MCHC 32.4 g/dl (32.0-36.0); MEAN CELL VOLUME 85.5 fl (80-96); MEAN PLT VOLUME 9.1 fl (7.5-11.1); NEUT % 62.3 % (42.8-82.8); PLATELET COUNT 244 K/MM3 (134-434); RBC 5.16 M/mm3 (3.60-5.2); RDW 15.3 % (11.6-15.6); WHITE BLOOD COUNT 7.7 K/mm3 (4.0-10.0)
[2019-05-25] MEDS ORDERED: METOCLOPRAMIDE HCL INJECTION 10 MG/2 ML VIAL ONE (16:22)
--- NOTE | 2019-05-25 16:22 | PDOC ---
Attending Attestation - Resident Resident Name: BishopArvind - ED Attending Attestation I have performed the following: I have examined & evaluated the patient, The case was reviewed & discussed with the resident, I agree w/resident's findings & plan - HPI HPI: 05/25/19 16:54 74 y/o female presenting to [facility] ER complaining of epigastric pain with "too much gas" for the past week. Started to feel "dizzy" this morning, which is further described as generalized fatigue and a diffuse headache. Reports multiple episodes of vomiting, last was two days ago. Emesis described as nonbloody. Denies diarrhea, chest pain, or SOB. Has not used prescribed Zantac, but has taken prescribed Omeprazole (last this AM). Decreased PO intake, but believes pain is worse immediately after eating. Has been evaluated by an unknown api product manager with EGD 2-3 years ago. Pt was evaluated by her PCP yesterday and told her symptoms were likely viral in origin. Daughter expressed concern that no tests were performed. 05/25/19 17:12 05/25/19 17:17 - Physicial Exam PE: 05/25/19 16:21 Agree with the resident's HPI and PE as documented in the electronic medical record. NAD, well appearing, EOMI, PERRL, nl conjunctiva, anicteric; neck supple. lungs clear, RRR, abdomen soft nontender, obese. no rebound, guarding. Back nontender. COMBS x4, no focal neuro deficits. No peripheral edema. normal color for ethnicity, WWP. gait stable. 05/25/19 17:10 - Medical Decision Making 05/25/19 16:21 Vital Signs Temp Pulse Resp BP Pulse Ox 97.3 F L 73 18 158/84 97 05/25/19 14:35 05/25/19 14:35 05/25/19 14:35 05/25/19 14:35 05/25/19 14:57 ddx. viral syndrome, dehydration, hepatitis, pancreatitis, anemia, electrolyte/ metabolic derangements, infection labs and lytes wnl, lipase/LFTs normal unlikely hepatitis/pancreatitis. given antiemetics, analgesia, IVF, feels improved abdomen soft, nontender, no peritoneal findings. doubt intra abdominal process/pathology without focality of sx, and unremarkable labs and exam. RN reports observing the pt walk to the bathroom without difficulty. gait stable. alejo PO intake, remains well and nontoxic appearing. Pt to be discharged in stable condition. Patient made aware of clinical impression, treatment recommendations and disposition plan, return precautions discussed (including but not limited to new or persistent/worsening symptoms, pain, fevers, or signs of infection, chest pain, respiratory distress, inability to tolerate oral intake, dehydration, syncope, or neurologic changes) . Follow up with PMD as recommended, follow up information provided, take medications as instructed for duration of time. continue with supportive care, avoid triggers and precipitants. All questions answered to patient's satisfaction and expressed understanding and comfort with this. At the time of discharge, the patient is alert, clinically improved, tolerating po and verbalizes understanding of instructions, satisfied with the care received and felt comfortable with the plan. Patient does not suffer from an acute life- threatening medical condition at this time and is safe for outpatient follow- up. 05/25/19 16:54 05/25/19 17:10 05/25/19 17:17 Heart Score/ECG Review #1 ECG reviewed & interpreted by me at: 15:30 General ECG Interpretation: Sinus Rhythm, Normal Rate, Normal Intervals Compared to previous ECG there are: No significant change 05/25/19 16:21 EKG normal sinus rhythm 62 bpm, no interval abnormalities, narrow QRS, ST and T wave segments and morphology normal. Nonspecific T wave abnormalities in I/aVL
[2019-05-25 16:36] LABS: URINE APPEARANCE CLEAR; URINE BILIRUBIN NEGATIVE (NEGATIVE); URINE COLOR YELLOW; URINE GLUCOSE (UA) NEGATIVE (NEGATIVE); URINE KETONE NEGATIVE (NEGATIVE); URINE LEUK ESTERASE NEGATIVE (NEGATIVE); URINE NITRITE NEGATIVE (NEGATIVE); URINE PROTEIN NEGATIVE (NEGATIVE); URINE UROBILINOGEN 0.2 mg/dL (0.2-1.0)
[2019-05-25 16:38] LABS: ALBUMIN 3.8 g/dl (3.4-5.0); BILIRUBIN,TOTAL 0.6 mg/dL (0.2-1); CALCIUM 9.2 mg/dL (8.5-10.1); CREATININE 1.3 mg/dL (0.55-1.3); PHOSPHOROUS 4.3 mg/dL (2.5-4.9); TOT PROT 7.7 g/dl (6.4-8.2)
[2019-05-25 17:50] VITALS: BP 130/66; PULSE 72
--- NOTE | 2019-05-26 15:28 | EKG ---
Test Reason : Blood Pressure : / mmHG Vent. Rate : 062 BPM Atrial Rate : 060 BPM P-R Int : 000 ms QRS Dur : 096 ms QT Int : 474 ms P-R-T Axes : 000 008 113 degrees QTc Int : 481 ms POOR DATA QUALITY, INTERPRETATION MAY BE ADVERSELY AFFECTED UNDETERMINED RHYTHM LEFT VENTRICULAR HYPERTROPHY WITH REPOLARIZATION ABNORMALITY ABNORMAL ECG WHEN COMPARED WITH ECG OF 21-JUL-2018 12:39, CURRENT UNDETERMINED RHYTHM PRECLUDES RHYTHM COMPARISON, NEEDS REVIEW INVERTED T WAVES HAVE REPLACED NONSPECIFIC T WAVE ABNORMALITY IN LATERAL LEADS Confirmed by MD SHAWANDA, TODD ([id number]) on 05/26/2019 3:28:17 PM Referred By: Confirmed By:TODD MAYBERRY MD
== END 2019-05-25 17:52 | disposition home or self-care (01) ==
LOC: JER 14:32
DX: B34.9 Viral infection, unspecified (principal); I10 Essential (primary) hypertension; E11.9 Type 2 diabetes mellitus without complications; Z79.84 Long term (current) use of oral hypoglycemic drugs; I48.0 Paroxysmal atrial fibrillation; Z79.01 Long term (current) use of anticoagulants; E21.3 Hyperparathyroidism, unspecified; G62.9 Polyneuropathy, unspecified; F32.9 Major depressive disorder, single episode, unspecified; K21.9 Gastro-esophageal reflux disease without esophagitis; E66.9 Obesity, unspecified; Z68.36 Body mass index [BMI] 36.0-36.9, adult; Z88.5 Allergy status to narcotic agent; Z98.84 Bariatric surgery status; Z90.49 Acquired absence of other specified parts of digestive tract; Z90.710 Acquired absence of both cervix and uterus
CPT/HCPCS: 36415; 80053; 81003; 83605; 83690; 83735; 84100; 85025; 87086; 93005; 93010; 99283-25

== ENCOUNTER 2020-01-11 20:54 | Inpatient (IN) | payer OTHER ==
[2020-01-11 21:14] VITALS: BMI 37.4
[2020-01-11] MEDS ORDERED: ACETAMINOPHEN 1000 MG/100 ML VIAL (NON FORMULARY) IVPB ONE (22:04)
[2020-01-11] MEDS ORDERED: MAG HYDROX/AL HYDROX/SIMETH 30 ML UNIT-DOSE CUP PO ONE (22:04)
[2020-01-11] MEDS ORDERED: FAMOTIDINE 20 MG/50 ML IVPB 20 MG/50 ML MG IVPB ONE ×2 (22:04→23:01)
[2020-01-11 22:57] LABS: URINE APPEARANCE CLEAR; URINE BILIRUBIN NEGATIVE (NEGATIVE); URINE COLOR YELLOW; URINE GLUCOSE (UA) NEGATIVE (NEGATIVE); URINE KETONE NEGATIVE (NEGATIVE); URINE LEUK ESTERASE NEGATIVE (NEGATIVE); URINE NITRITE NEGATIVE (NEGATIVE); URINE PROTEIN NEGATIVE (NEGATIVE)
[2020-01-11] MEDS ORDERED: ACETAMINOPHEN INJECTION 100 ML IVPB ONE (23:00)
[2020-01-11] MEDS ORDERED: MAG HYDROX/AL HYDROX/SIMETH 30 ML UNIT-DOSE CUP ONE (23:01)
[2020-01-11 23:33] LABS: BASO % 0.7 % (0-2.0); EOS % 2.5 % (0-4.5); HEMATOCRIT 37.3 % (32.4-45.2); HEMOGLOBIN 12.2 GM/dL (10.7-15.3); LYMPH % 14.2 % (8-40); MCH 27.6 pg (25.7-33.7); MCHC 32.6 g/dl (32.0-36.0); MEAN CELL VOLUME 84.7 fl (80-96); MEAN PLT VOLUME 9.1 fl (7.5-11.1); MONO % 5.1 % (3.8-10.2); NEUT % 77.5 % (42.8-82.8); PLATELET COUNT 238 K/MM3 (134-434); RDW 17.9 % (11.6-15.6); WHITE BLOOD COUNT 9.6 K/mm3 (4.0-10.0)
[2020-01-11 23:40] LABS: INR 0.93 (0.83-1.09)
[2020-01-12 00:10] LABS: ALBUMIN 3.5 g/dl (3.4-5.0); ALK PHOS 164 U/L (45-117); ANION GAP 11 MMOL/L (8-16); BILIRUBIN,TOTAL 0.4 mg/dL (0.2-1); BLOOD UREA NITROGEN 19.6 mg/dL (7-18); CALCIUM 9.3 mg/dL (8.5-10.1); CHLORIDE 106 mmol/L (98-107); CO2 25 mmol/L (21-32); CREATININE 1.1 mg/dL (0.55-1.3); GLUCOSE,RANDOM 121 mg/dL (74-106); LIPASE 193 U/L (73-393); POTASSIUM 4.4 mmol/L (3.5-5.1); SGOT/AST 24 U/L (15-37); SGPT/ALT 14 U/L (13-61); SODIUM 142 mmol/L (136-145); TOT PROT 7.3 g/dl (6.4-8.2)
--- NOTE | 2020-01-12 00:55 | PDOC ---
Documentation entered by Shu Patrick SCRIBE, acting as scribe for Deion Martinez MD. Deion Martinez MD: This documentation has been prepared by the Celina guillory Xhesika, SCRIBE, under my direction and personally reviewed by me in its entirety. I confirm that the documentation accurately reflects all work, treatment, procedures, and medical decision making performed by me. 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 Pt states her abdominal discomfort is worse after eating, associated with SOB, flatulence, and urinary frequency. Pt states she was recently started on iron pills for anemia. The patient denies chest pain, headache and dizziness. Denies fever, chills, cough, nausea, vomiting, diarrhea and constipation. Denies dysuria, urgency and hematuria. Allergies: Morphine - Physicial Exam PE: 01/12/20 02:07 See resident exam - Medical Decision Making 01/12/20 02:07 75 F with SOB, epigastric discomfort. Pt with benign abdomen. EKG without acute ischemic changes. - Labs, trop, BNP - CXR 01/12/20 02:08 Labs with elevated BNP CXR with pulmonary congestion Will admit for CHF exacerbation Discharge - Discharge Information Problems reviewed: Yes Clinical Impression/Diagnosis: Abdominal pain, SOB (shortness of breath) CHF (congestive heart failure) Qualifiers: Heart failure type: unspecified Heart failure chronicity: acute Qualified Code(s): I50.9 - Heart failure, unspecified Condition: Improved Disposition: HOME - Follow up/Referral - Patient Discharge Instructions - Post Discharge Activity
[2020-01-12] MEDS ORDERED: FUROSEMIDE 40 MG/4 ML INJECTABLE VIAL IVPUSH ONE (01:00)
--- NOTE | 2020-01-12 01:00 | PDOC ---
History of Present Illness - General Chief Complaint: Pain, Acute Stated Complaint: ABDOMINAL PAIN Time Seen by Provider: 01/11/20 21:32 History Source: Patient Exam Limitations: No Limitations - History of Present Illness Initial Comments: 01/12/20 01:02 75 yo F with a hx of NIDDM, HTN, hyperparathyroidism, primaryy insomnia, left thalamic chronic lunar infarct, paroxysmal atrial fibrillation (on eliquis), urinary incontinence, MDD presents to the emergency department for generalized weakness and abdominal pain. Per the patient, the abdominal pain gets worse shortly after eating and is associated with urinary frequency increased. Endorses SOB. The patient states the abdominal pain is sharp in nature, 6/10, and does not radiate with no known relieving agents. Denies the following: fevers, chills, nausea, vomiting, back pain, dysuria, hematuria, diarrhea, and melena. Past History - Medical History Allergies/Adverse Reactions: Allergies Allergy/AdvReac Type Severity Reaction Status Date / Time morphine Allergy Intermediate Hives Verified 05/25/19 14:44 Home Medications: Ambulatory Orders Metoprolol Tartrate [Lopressor -] 50 mg PO BID 09/13/12 Zolpidem Tartrate [Ambien] 10 mg PO HS 09/13/12 Apixaban [Eliquis] 5 mg PO BID 02/13/15 Ergocalciferol (Vitamin D2) [Vitamin D] 50,000 unit PO WEEKLY 03/07/15 Donepezil HCl [Aricept] 10 mg PO DAILY 11/02/17 Linagliptin/Metformin HCl [Jentadueto 2.5 mg-500 mg Tab] 1 each PO DAILY 11/02/17 Loratadine [Claritin] 10 mg PO DAILY 11/02/17 Amlodipine/Valsartan [Exforge 10-320 mg Tablet] 10 - 320 mg PO DAILY 12/03/17 Atorvastatin Ca [Lipitor] 20 mg PO DAILY 05/25/18 Ibandronate Sodium [Boniva] 150 mg PO DAILY 05/25/18 Omeprazole 40 mg PO DAILY 05/25/18 Albuterol Sulfate Inhaler - [Ventolin HFA Inhaler -] 1 puff IH PRN PRN 01/13/20 Citalopram Hydrobromide [Citalopram HBr] 20 mg PO DAILY 01/13/20 Ferrous Gluconate [Fergon -] 324 mg PO DAILY 01/13/20 Furosemide [Lasix] 40 mg PO DAILY #30 tablet 01/13/20 Linaclotide [Linzess] 72 mcg PO DAILY 01/13/20 Anemia: Yes (MANY YRS AGO) Asthma: Yes Cancer: No Cardiac Disorders: Yes (H/O ARRHYTHMIA?) CVA: Yes (X 2 MANY YRS AGO) COPD: No CHF: No Dementia: No (ON ARICEPT FOR PREVENTION) Diabetes: Yes GI Disorders: Yes (GERD) Disorders: No HTN: Yes Hypercholesterolemia: Yes Liver Disease: No Psychiatric Problems: Yes (depression,insomnia) Seizures: No Thyroid Disease: No - Surgical History Abdominal Surgery: Yes (GASTRIC BYPASS) Appendectomy: Yes Cardiac Surgery: Yes Cholecystectomy: Yes Lung Surgery: No Neurologic Surgery: No Orthopedic Surgery: Yes (RIGHT FOOT SURGERY) - Immunization History Immunization Up to Date: Yes - Psycho-Social/Smoking History Smoking Status: No Smoking History: Never smoked Have you smoked in the past 12 months: No Number of Cigarettes Smoked Daily: 0 - Substance Abuse Hx (Audit-C & DAST Scrn) How often the patient has a drink containing alcohol: Never Score: In Men: 4 or > Positive; In Women: 3 or > Positive: 0 Screen Result (Pos requires Nsg. Audit-10AR): Negative Review of Systems - Review of Systems Able to Perform ROS?: Yes Is the patient limited Maori proficient: No Constitutional: No: Chills, Diaphoresis, Fever, Weakness HEENTM: No: Eye Pain, Ear Pain, Nose Pain, Throat Pain, Mouth Pain Respiratory: Yes: Shortness of Breath. No: Cough Cardiac (ROS): No: Chest Pain, Palpitations ABD/GI: Yes: Abdominal cramping. No: Constipated, Diarrhea, Nausea, Vomiting : Yes: Frequency. No: Dysuria, Hematuria Musculoskeletal: No: Back Pain, Joint Pain Integumentary: No: Rash Neurological: No: Headache Psychiatric: No: Change in Appetite Endocrine: No: Unexplained Weight Loss Hematologic/Lymphatic: Yes: Anemia *Physical Exam - Vital Signs Last Vital Signs Temp Pulse Resp BP Pulse Ox 98.7 F 62 20 174/74 H 95 01/11/20 21:12 01/11/20 21:12 01/11/20 21:12 01/11/20 21:12 01/11/20 21:12 - Physical Exam General Appearance: Yes: Nourished, Appropriately Dressed. No: Apparent Distress, Intoxicated HEENT: positive: EOMI, BRIGIDO, Normal Voice, Symmetrical, Pharynx Normal, Hearing Grossly Normal. negative: Pale Conjunctivae, Scleral Icterus (R), Scleral Icterus (L), Muffled/Hoarse voice, Pharyngeal Erythema, Tonsillar Exudate, Tonsillar Erythema, Nasal Congestion, Rhinorrhea, Sinus Tenderness, Excessive drooling Neck: positive: Trachea midline, Supple. negative: Tender, Lymphadenopathy (R), Lymphadenopathy (L), Tender lateral, Tender midline Respiratory/Chest: positive: Lungs Clear. negative: Chest Tender, Normal Breath Sounds (decreased breath sounds bilaterally at the bases), Respiratory Distress, Accessory Muscle Use Cardiovascular: positive: Regular Rhythm, Regular Rate, S1, S2, Systolic Murmur (systolic noted) Gastrointestinal/Abdominal: positive: Normal Bowel Sounds, Flat, Soft. negative: Tender, Distended, Guarding, Rebound, Tenderness Lymphatic: negative: Adenopathy Musculoskeletal: positive: Normal Inspection. negative: CVA Tenderness, Vertebral Tenderness Extremity: positive: Normal Capillary Refill, Normal Inspection, Normal Range of Motion. negative: Tender Integumentary: positive: Normal Color, Dry, Warm. negative: Rash Neurologic: positive: Alert, Normal Mood/Affect ED Treatment Course - LABORATORY CBC & Chemistry Diagram: 01/13/20 07:30 01/13/20 07:30 - ADDITIONAL ORDERS Additional order review: Laboratory Results 01/11/20 01/11/20 01/11/20 23:10 23:10 23:10 PT with INR INR Sodium 142 Potassium 4.4 Chloride 106 Carbon Dioxide 25 Anion Gap 11 BUN 19.6 H Creatinine 1.1 Est GFR (CKD-EPI)AfAm 57.68 Est GFR (CKD-EPI)NonAf 49.77 POC Glucometer Random Glucose 121 H Calcium 9.3 Magnesium 2.0 Total Bilirubin 0.4 AST 24 ALT 14 Alkaline Phosphatase 164 H Creatine Kinase 76 Troponin I < 0.02 B-Natriuretic Peptide 2005.4 H Total Protein 7.3 Albumin 3.5 Lipase 193 Urine Color Urine Appearance Urine pH Ur Specific [place] Urine Protein Urine Glucose (UA) Urine Ketones Urine Blood Urine Nitrite Urine Bilirubin Urine Urobilinogen Ur Leukocyte Esterase Stool Occult Blood Blood Type AB NEGATIVE Antibody Screen Negative 01/11/20 01/11/20 01/11/20 23:10 22:30 22:16 PT with INR 11.00 INR 0.93 Sodium Potassium Chloride Carbon Dioxide Anion Gap BUN Creatinine Est GFR (CKD-EPI)AfAm Est GFR (CKD-EPI)NonAf POC Glucometer Random Glucose Calcium Magnesium Total Bilirubin AST ALT Alkaline Phosphatase Creatine Kinase Troponin I B-Natriuretic Peptide Total Protein Albumin Lipase Urine Color Yellow Urine Appearance Clear Urine pH 6.0 Ur Specific [place] 1.008 L Urine Protein Negative Urine Glucose (UA) Negative Urine Ketones Negative Urine Blood Negative Urine Nitrite Negative Urine Bilirubin Negative Urine Urobilinogen 1.0 Ur Leukocyte Esterase Negative Stool Occult Blood Negative Blood Type Antibody Screen 01/11/20 21:30 PT with INR INR Sodium Potassium Chloride Carbon Dioxide Anion Gap BUN Creatinine Est GFR (CKD-EPI)AfAm Est GFR (CKD-EPI)NonAf POC Glucometer 105 Random Glucose Calcium Magnesium Total Bilirubin AST ALT Alkaline Phosphatase Creatine Kinase Troponin I B-Natriuretic Peptide Total Protein Albumin Lipase Urine Color Urine Appearance Urine pH Ur Specific [place] Urine Protein Urine Glucose (UA) Urine Ketones Urine Blood Urine Nitrite Urine Bilirubin Urine Urobilinogen Ur Leukocyte Esterase Stool Occult Blood Blood Type Antibody Screen 01/11/20 01/11/20 23:10 21:30 RBC 4.40 MCV 84.7 MCHC 32.6 RDW 17.9 H MPV 9.1 Neutrophils % 77.5 D Lymphocytes % 14.2 D Monocytes % 5.1 Eosinophils % 2.5 Basophils % 0.7 POC Glucometer 105 - RADIOLOGY Radiology Studies Ordered: Category Date Time Status CHEST X-RAY PORTABLE* [RAD] Stat Radiology 01/11/20 22:04 Taken Medical Decision Making - Medical Decision Making 01/12/20 01:06 75 yo F with a hx of NIDDM, HTN, hyperparathyroidism, primaryy insomnia, left thalamic chronic lunar infarct, paroxysmal atrial fibrillation (on eliquis), urinary incontinence, MDD presents to the emergency department for generalized weakness and abdominal pain. Initial vitals: Initial Vital Signs Temp Pulse Resp BP Pulse Ox 98.7 F 62 20 174/74 H 95 01/11/20 21:12 01/11/20 21:12 01/11/20 21:12 01/11/20 21:12 01/11/20 21:12 Work up: Laboratory Tests 01/11/20 01/11/20 01/11/20 21:30 22:16 22:30 WBC RBC Hgb Hct MCV MCH MCHC RDW Plt Count MPV Absolute Neuts (auto) Neutrophils % Lymphocytes % Monocytes % Eosinophils % Basophils % Nucleated RBC % PT with INR INR Sodium Potassium Chloride Carbon Dioxide Anion Gap BUN Creatinine Est GFR (CKD-EPI)AfAm Est GFR (CKD-EPI)NonAf POC Glucometer 105 Random Glucose Calcium Magnesium Total Bilirubin AST ALT Alkaline Phosphatase Creatine Kinase Troponin I B-Natriuretic Peptide Total Protein Albumin Lipase Urine Color Yellow Urine Appearance Clear Urine pH 6.0 Ur Specific [place] 1.008 L Urine Protein Negative Urine Glucose (UA) Negative Urine Ketones Negative Urine Blood Negative Urine Nitrite Negative Urine Bilirubin Negative Urine Urobilinogen 1.0 Ur Leukocyte Esterase Negative Stool Occult Blood Negative Blood Type Antibody Screen 01/11/20 01/11/20 01/11/20 23:10 23:10 23:10 WBC 9.6 RBC 4.40 Hgb 12.2 Hct 37.3 D MCV 84.7 MCH 27.6 MCHC 32.6 RDW 17.9 H Plt Count 238 MPV 9.1 Absolute Neuts (auto) 7.4 Neutrophils % 77.5 D Lymphocytes % 14.2 D Monocytes % 5.1 Eosinophils % 2.5 Basophils % 0.7 Nucleated RBC % 0 PT with INR 11.00 INR 0.93 Sodium 142 Potassium 4.4 Chloride 106 Carbon Dioxide 25 Anion Gap 11 BUN 19.6 H Creatinine 1.1 Est GFR (CKD-EPI)AfAm 57.68 Est GFR (CKD-EPI)NonAf 49.77 POC Glucometer Random Glucose 121 H Calcium 9.3 Magnesium 2.0 Total Bilirubin 0.4 AST 24 ALT 14 Alkaline Phosphatase 164 H Creatine Kinase 76 Troponin I < 0.02 B-Natriuretic Peptide Total Protein 7.3 Albumin 3.5 Lipase 193 Urine Color Urine Appearance Urine pH Ur Specific [place] Urine Protein Urine Glucose (UA) Urine Ketones Urine Blood Urine Nitrite Urine Bilirubin Urine Urobilinogen Ur Leukocyte Esterase Stool Occult Blood Blood Type Antibody Screen 01/11/20 01/11/20 23:10 23:10 WBC RBC Hgb Hct MCV MCH MCHC RDW Plt Count MPV Absolute Neuts (auto) Neutrophils % Lymphocytes % Monocytes % Eosinophils % Basophils % Nucleated RBC % PT with INR INR Sodium Potassium Chloride Carbon Dioxide Anion Gap BUN Creatinine Est GFR (CKD-EPI)AfAm Est GFR (CKD-EPI)NonAf POC Glucometer Random Glucose Calcium Magnesium Total Bilirubin AST ALT Alkaline Phosphatase Creatine Kinase Troponin I B-Natriuretic Peptide 2005.4 H Total Protein Albumin Lipase Urine Color Urine Appearance Urine pH Ur Specific [place] Urine Protein Urine Glucose (UA) Urine Ketones Urine Blood Urine Nitrite Urine Bilirubin Urine Urobilinogen Ur Leukocyte Esterase Stool Occult Blood Blood Type AB NEGATIVE Antibody Screen Negative BNP elevated trop negative 20 mg of lasix bid cxr shows congestive changes will admit the patient for CHF exacerbation EKG: prolonged QT. No ST elevations or depressions. Dispo: Admit Discharge - Discharge Information Problems reviewed: Yes Clinical Impression/Diagnosis: Abdominal pain, CHF (congestive heart failure), SOB (shortness of breath) - Follow up/Referral - Patient Discharge Instructions - Post Discharge Activity
[2020-01-12] MEDS ORDERED: FUROSEMIDE 40 MG/4 ML INJECTABLE VIAL ONE ×2 (02:28→10:20)
[2020-01-12] MEDS ORDERED: ALPRAZolam 1 MG TABLET PO PRN ×2 (02:50→02:53)
[2020-01-12] MEDS ORDERED: ZOLPIDEM TARTRATE 5 MG TABLET ONE ×2 (02:53→21:18)
--- NOTE | 2020-01-12 04:55 | HP ---
CHIEF COMPLAINT: Generalized Weakness, Abdominal Pain PCP: Dr Suarez HISTORY OF PRESENT ILLNESS: This is a 75 y/o female with a PMHx of NIDDM, HTN, CHF, pAfib (on Eliquis), Hyperparathyroidism, L- Thalamic Chronic Lacunar Infarct, GERD with Esophagitis (on Omeprazole) Insommia, Depression, Urinary Incontinence, Venous Stasis Dermatitis (RLE). Who presents to the ED with her daughter for generalized weakness and abdominal pain. Patient reports that her abdominal discomfort is worse post-prandial, associated with SOB, flatulence, and urinary frequency. Patient states she was recently started on iron pills for anemia. Patient denies fever, chills, cough, dizziness, HOLLOWAY, CP, palpitations, N/V/D, constipation. Patient denies sick contacts or recent travel. RN translated at bedside ER course was notable for: (1) BNP- 2004 (2) Lasix 20mg IV given (3) Chest Xray image- congestive changes Recent Travel: None PAST MEDICAL HISTORY: see HPI PAST SURGICAL HISTORY: Appendectomy Cholecystectomy Gastric Bypass Right Foot Social History: Smoking: Never Alcohol: Denies Drugs: Denies Lives with daughter Allergies morphine Allergy (Intermediate, Verified 05/25/19 14:44) Hives HOME MEDICATIONS: Home Medications Medication Instructions Recorded Metoprolol Tartrate [Lopressor -] 50 mg PO BID 09/13/12 Zolpidem Tartrate [Ambien] 10 mg PO HS 09/13/12 Apixaban [Eliquis] 5 mg PO BID 02/13/15 Ergocalciferol (Vitamin D2) 50,000 unit PO WEEKLY 03/07/15 [Vitamin D] Donepezil HCl [Aricept] 10 mg PO DAILY 11/02/17 Linagliptin/Metformin HCl 1 each PO DAILY 11/02/17 [Jentadueto 2.5 mg-500 mg Tab] Loratadine [Claritin] 10 mg PO DAILY 11/02/17 Amlodipine/Valsartan [Exforge 10 - 320 mg PO DAILY 12/03/17 10-320 mg Tablet] Acetaminophen [Tylenol .Regular 650 mg PO Q4H PRN tablet 12/04/17 Strength -] Atorvastatin Ca [Lipitor] 20 mg PO DAILY 05/25/18 Ibandronate Sodium [Boniva] 150 mg PO DAILY 05/25/18 Omeprazole 40 mg PO DAILY 05/25/18 metFORMIN HCL [Metformin HCl] 500 mg PO DAILY 05/25/18 Azithromycin [Zithromax Tri-Levon (3 500 mg PO DAILY #3 tablet 07/21/18 DAYS) -] Benzonatate [Tessalon Pearls -] 100 mg PO TID PRN #21 capsule 07/21/18 Mag Hydrox/Al Hydrox/Simeth 30 ml PO Q6H PRN #1 bottle 05/25/19 [Mylanta Suspension -] Metoclopramide HCl [Reglan -] 10 mg PO TID PRN #12 tablet 05/25/19 Lasix 20mg po BID REVIEW OF SYSTEMS CONSTITUTIONAL: generalized weakness Absent: fever, chills, diaphoresis, malaise, loss of appetite, weight change HEENT: Absent: rhinorrhea, nasal congestion, throat pain, throat swelling, difficulty swallowing, mouth swelling, ear pain, eye pain, visual changes CARDIOVASCULAR: Absent: chest pain, syncope, palpitations, irregular heart rate, lightheadedness, peripheral edema RESPIRATORY: shortness of breath Absent: cough, dyspnea with exertion, orthopnea, wheezing, stridor, hemoptysis GASTROINTESTINAL: abdominal pain Absent: abdominal distension, nausea, vomiting, diarrhea, constipation, melena, hematochezia GENITOURINARY: frequency Absent: dysuria, urgency, hesitancy, hematuria, flank pain, genital pain MUSCULOSKELETAL: Absent: myalgia, arthralgia, joint swelling, back pain, neck pain SKIN: Absent: rash, itching, pallor HEMATOLOGIC/IMMUNOLOGIC: Absent: easy bleeding, easy bruising, lymphadenopathy, frequent infections ENDOCRINE: Absent: unexplained weight gain, unexplained weight loss, heat intolerance, cold intolerance NEUROLOGIC: Absent: headache, focal weakness or paresthesias, dizziness, unsteady gait, seizure, mental status changes, bladder or bowel incontinence PSYCHIATRIC: Absent: anxiety, depression, suicidal or homicidal ideation, hallucinations. PHYSICAL EXAMINATION Vital Signs - 24 hr 01/11/20 01/12/20 21:12 03:40 Temperature 98.7 F 98.5 F Pulse Rate 62 Pulse Rate [ 62 Left] Respiratory 20 17 Rate Blood Pressure 174/74 H Blood Pressure 181/64 H [Arm] O2 Sat by Pulse 95 97 Oximetry (%) GENERAL: Awake, alert, and fully oriented, in no acute distress. HEAD: Normal with no signs of trauma. EYES: Pupils equal, round and reactive to light, extraocular movements intact, sclera anicteric, conjunctiva clear. No lid lag. EARS, NOSE, THROAT: Ears normal, nares patent, oropharynx clear without exudates. Moist mucous membranes. NECK: Normal range of motion, supple without lymphadenopathy, JVD, or masses. LUNGS: Breath sounds equal, clear to auscultation bilaterally. No wheezes, and no crackles. No accessory muscle use. HEART: Regular rate and rhythm, normal S1 and S2,+murmur, rub or gallop. ABDOMEN: Soft, nontender, not distended, normoactive bowel sounds, no guarding, no rebound, no masses. No hepatomegaly or splenomegaly. MUSCULOSKELETAL: Normal range of motion at all joints. No bony deformities or tenderness. No CVA tenderness. UPPER EXTREMITIES: 2+ pulses, warm, well-perfused. No cyanosis. No clubbing. No peripheral edema. LOWER EXTREMITIES: 2+ pulses, warm, well-perfused. No calf tenderness. No peripheral edema. NEUROLOGICAL: Cranial nerves II-XII intact. Normal speech. Gait not observed. PSYCHIATRIC: Cooperative. Good eye contact. Appropriate mood and affect. SKIN: Warm, dry, normal turgor, no rashes or lesions noted, normal capillary refill. Laboratory Results - last 24 hr 01/11/20 01/11/20 01/11/20 21:30 22:16 22:30 WBC RBC Hgb Hct MCV MCH MCHC RDW Plt Count MPV Absolute Neuts (auto) Neutrophils % Lymphocytes % Monocytes % Eosinophils % Basophils % Nucleated RBC % PT with INR INR Sodium Potassium Chloride Carbon Dioxide Anion Gap BUN Creatinine Est GFR (CKD-EPI)AfAm Est GFR (CKD-EPI)NonAf POC Glucometer 105 Random Glucose Calcium Magnesium Total Bilirubin AST ALT Alkaline Phosphatase Creatine Kinase Troponin I B-Natriuretic Peptide Total Protein Albumin Lipase Urine Color Yellow Urine Appearance Clear Urine pH 6.0 Ur Specific [place] 1.008 L Urine Protein Negative Urine Glucose (UA) Negative Urine Ketones Negative Urine Blood Negative Urine Nitrite Negative Urine Bilirubin Negative Urine Urobilinogen 1.0 Ur Leukocyte Esterase Negative Stool Occult Blood Negative Blood Type Antibody Screen 01/11/20 01/11/20 01/11/20 23:10 23:10 23:10 WBC 9.6 RBC 4.40 Hgb 12.2 Hct 37.3 D MCV 84.7 MCH 27.6 MCHC 32.6 RDW 17.9 H Plt Count 238 MPV 9.1 Absolute Neuts (auto) 7.4 Neutrophils % 77.5 D Lymphocytes % 14.2 D Monocytes % 5.1 Eosinophils % 2.5 Basophils % 0.7 Nucleated RBC % 0 PT with INR 11.00 INR 0.93 Sodium 142 Potassium 4.4 Chloride 106 Carbon Dioxide 25 Anion Gap 11 BUN 19.6 H Creatinine 1.1 Est GFR (CKD-EPI)AfAm 57.68 Est GFR (CKD-EPI)NonAf 49.77 POC Glucometer Random Glucose 121 H Calcium 9.3 Magnesium 2.0 Total Bilirubin 0.4 AST 24 ALT 14 Alkaline Phosphatase 164 H Creatine Kinase 76 Troponin I < 0.02 B-Natriuretic Peptide Total Protein 7.3 Albumin 3.5 Lipase 193 Urine Color Urine Appearance Urine pH Ur Specific [place] Urine Protein Urine Glucose (UA) Urine Ketones Urine Blood Urine Nitrite Urine Bilirubin Urine Urobilinogen Ur Leukocyte Esterase Stool Occult Blood Blood Type Antibody Screen 01/11/20 01/11/20 23:10 23:10 WBC RBC Hgb Hct MCV MCH MCHC RDW Plt Count MPV Absolute Neuts (auto) Neutrophils % Lymphocytes % Monocytes % Eosinophils % Basophils % Nucleated RBC % PT with INR INR Sodium Potassium Chloride Carbon Dioxide Anion Gap BUN Creatinine Est GFR (CKD-EPI)AfAm Est GFR (CKD-EPI)NonAf POC Glucometer Random Glucose Calcium Magnesium Total Bilirubin AST ALT Alkaline Phosphatase Creatine Kinase Troponin I B-Natriuretic Peptide 2005.4 H Total Protein Albumin Lipase Urine Color Urine Appearance Urine pH Ur Specific [place] Urine Protein Urine Glucose (UA) Urine Ketones Urine Blood Urine Nitrite Urine Bilirubin Urine Urobilinogen Ur Leukocyte Esterase Stool Occult Blood Blood Type AB NEGATIVE Antibody Screen Negative ASSESSMENT/PLAN: This is a 75 y/o female with a PMHx of NIDDM, HTN, HLD, Hyperparathyroidism, pA fib (on Eliquis), GERD with Esophagitis, Left Thalamic Chronic Lacunar Infarct, Depression, Insomnia, Obesity, Urinary Incontinence, Polyneuropathy. Admitted to Telemetry for CHF Exacerbation, Generalized Weakness for further evaluation of their emergent condition. Plan: Tele monitoring Appreciate Cardiology consult Serial Enzymes BNP 1999 at baseline EKG reviewed Chest Xray image-congestive changes Lasix given in ED, will continue Strict INOs Daily weight Monitor CBC, CMP O2 BGMs ISS Continue home meds with parameters Seizure Precautions Fall Precautions FEN- Fluid restriction 1L, Replete lytes prn, Low Na, Diabetic Diet DVT ppx- OOB, SCDs, Continue Eliquis Dispo: Requires Inpatient Care Family Medical History Family History: Unable to Obtain Problem List - Problem (1) Acute on chronic diastolic (congestive) heart failure Code(s): I50.33 - ACUTE ON CHRONIC DIASTOLIC (CONGESTIVE) HEART FAILURE (2) Abdominal pain Code(s): R10.9 - UNSPECIFIED ABDOMINAL PAIN (3) HTN (hypertension) Code(s): I10 - ESSENTIAL (PRIMARY) HYPERTENSION (4) Paroxysmal A-fib Code(s): I48.0 - PAROXYSMAL ATRIAL FIBRILLATION (5) Type 2 diabetes mellitus Code(s): E11.9 - TYPE 2 DIABETES MELLITUS WITHOUT COMPLICATIONS (6) Encounter for screening laboratory testing for COVID-19 virus Code(s): Z11.59 - ENCOUNTER FOR SCREENING FOR OTHER VIRAL DISEASES Visit type - Medication Review Med list reviewed for High Risk Meds patients 65 and older: Yes - Emergency Visit Emergency Visit: Yes ED Registration Date: 01/11/20 Care time: The patient presented to the Emergency Department on the above date and was hospitalized for further evaluation of their emergent condition. - New Patient This patient is new to me today: Yes Date on this admission: 01/12/20 - Critical Care Critical Care patient: No
[2020-01-12] MEDS ORDERED: METOCLOPRAMIDE HCL 10 MG TABLET (FP) PO PRN ×2 (06:42→09:19)
[2020-01-12] MEDS ORDERED: MAG HYDROX/AL HYDROX/SIMETH -MYLANTA- ORAL SUSPENSION PO PRN (06:42)
[2020-01-12] MEDS ORDERED: metFORMIN HCL 500 MG TABLET (FP) PO SCH (07:00)
[2020-01-12] MEDS ORDERED: PANTOPRAZOLE 20 MG TABLET PO SCH (07:15)
[2020-01-12] MEDS ORDERED: APIXABAN 5 MG TABLET ONE ×2 (08:16→21:03)
[2020-01-12] MEDS ORDERED: FUROSEMIDE 40 MG TABLET (FP) ONE (08:16)
[2020-01-12] MEDS ORDERED: METOPROLOL TARTRATE 50 MG TABLET (FP) ONE ×2 (08:17→21:03)
[2020-01-12] MEDS ORDERED: metFORMIN HCL 500 MG TABLET (FP) ONE (08:17)
[2020-01-12] MEDS ORDERED: amLODIPine BESYLATE 5 MG TABLET (FP) ONE (08:17)
[2020-01-12] MEDS ORDERED: LORATADINE 10 MG TABLET ONE (08:18)
[2020-01-12] MEDS ORDERED: VALSARTAN 80 MG TABLET (UD) ONE (08:18)
[2020-01-12] MEDS: amLODIPine BESYLATE 10 MG TABLET (FP) PO SCH (09:05)
[2020-01-12] MEDS: METOPROLOL TARTRATE 50 MG TABLET (FP) PO SCH ×2 (09:05→21:13)
[2020-01-12] MEDS: VALSARTAN 160 MG TABLET (UD) PO SCH (09:05)
[2020-01-12] MEDS: LORATADINE 10 MG TABLET PO SCH (09:05)
[2020-01-12] MEDS: APIXABAN 5 MG TABLET PO SCH ×2 (09:05→21:13)
--- NOTE | 2020-01-12 09:23 | PN ---
Progress Note (short form) - Note Progress Note: pt sees dr vang of [facility] for mgmt of her afib. seen here previously by Dr. Johnson. have discussed with Dr Cobian, winder contort operator today--he will see her. consult order changed.
[2020-01-12 09:36] LABS: BASO % 0.5 % (0-2.0); EOS % 3.4 % (0-4.5); HEMATOCRIT 37.3 % (32.4-45.2); HEMOGLOBIN 12.1 GM/dL (10.7-15.3); LYMPH % 17.1 % (8-40); MCH 27.2 pg (25.7-33.7); MCHC 32.4 g/dl (32.0-36.0); MEAN CELL VOLUME 84.1 fl (80-96); MEAN PLT VOLUME 8.6 fl (7.5-11.1); MONO % 6.9 % (3.8-10.2); NEUT % 72.1 % (42.8-82.8); PLATELET COUNT 237 K/MM3 (134-434); RBC 4.44 M/mm3 (3.60-5.2); RDW 18.2 % (11.6-15.6); WHITE BLOOD COUNT 7.3 K/mm3 (4.0-10.0)
[2020-01-12] MEDS ORDERED: PATIENT'S OWN MEDICATION (NON-FORMULARY) (Omeprazole 40 MG) PO SCH (10:00)
[2020-01-12 10:15] LABS: ALBUMIN 3.6 g/dl (3.4-5.0); ANION GAP 9 MMOL/L (8-16); BLOOD UREA NITROGEN 15.5 mg/dL (7-18); CHLORIDE 103 mmol/L (98-107); CO2 29 mmol/L (21-32); CREATININE 1.1 mg/dL (0.55-1.3); GLUCOSE,RANDOM 132 mg/dL (74-106); POTASSIUM 3.8 mmol/L (3.5-5.1); SGOT/AST 20 U/L (15-37); SGPT/ALT 16 U/L (13-61); SODIUM 142 mmol/L (136-145); TOT PROT 7.4 g/dl (6.4-8.2)
[2020-01-12 10:16] LABS: ALK PHOS 134 U/L (45-117); BILIRUBIN,TOTAL 0.7 mg/dL (0.2-1)
[2020-01-12] MEDS ORDERED: ACETAMINOPHEN 325 MG TABLET (FP) ONE ×2 (10:20→17:21)
[2020-01-12] MEDS ORDERED: PANTOPRAZOLE 40 MG TABLET ONE (10:20)
[2020-01-12] MEDS: PANTOPRAZOLE 20 MG TABLET PO SCH (11:12)
[2020-01-12] MEDS: FUROSEMIDE 40 MG/4 ML INJECTABLE VIAL IVPUSH SCH (11:12)
[2020-01-12] MEDS: ACETAMINOPHEN 325 MG TABLET (FP) PO PRN ×2 (12:09→17:34)
--- NOTE | 2020-01-12 12:38 | CON.CARD ---
Consult Consult Specialty:: Cardiology Referred by:: Hospitalist Reason for Consultation:: Cardiac evaluation - History of Present Illness Chief Complaint: Generalized weakness and fatigue History of Present Illness: Pateint is a 75 year old female descent with underlying history of HTN, NIDDM, mild /AR, PAF on DOAC/Eliquis, hyperparathyroidim, left thalamic lacunar infarct and GERD who presented to ED with generalized weakness and fatigue. She also complained of abdominal discomfort associated with shortness of breath. She denies chest pain or palpitations. She denies PND or orthopnea. She denies fever or chills. She denies nausea, vomiting, diarrhea or abdominal pain. She denies headache or lightheadedness. Fire Engine Operator: Yobani Hodge MD ([facility]) - History Source History Provided By: Patient, Medical Record Limitations to Obtaining History: No Limitations - Past Medical History Cardio/Vascular: Yes: Aortic Insufficiency, Aortic Stenosis, CHF, HTN, Hyperlipdemia Gastrointestinal: Yes: GERD Endocrine: Yes: Diabetes Mellitus, Hyperparathyroidism - Past Surgical History Past Surgical History: Yes: None - Alcohol/Substance Use Hx Alcohol Use: No History of Substance Use: reports: None - Smoking History Smoking history: Never smoked Have you smoked in the past 12 months: No Aproximately how many cigarettes per day: 0 Home Medications - Allergies Allergies/Adverse Reactions: Allergies Allergy/AdvReac Type Severity Reaction Status Date / Time morphine Allergy Intermediate Hives Verified 05/25/19 14:44 - Home Medications Home Medications: Ambulatory Orders Metoprolol Tartrate [Lopressor -] 50 mg PO BID 09/13/12 Zolpidem Tartrate [Ambien] 10 mg PO HS 09/13/12 Apixaban [Eliquis] 5 mg PO BID 02/13/15 Ergocalciferol (Vitamin D2) [Vitamin D] 50,000 unit PO WEEKLY 03/07/15 Donepezil HCl [Aricept] 10 mg PO DAILY 11/02/17 Linagliptin/Metformin HCl [Jentadueto 2.5 mg-500 mg Tab] 1 each PO DAILY 11/02/17 Loratadine [Claritin] 10 mg PO DAILY 11/02/17 Amlodipine/Valsartan [Exforge 10-320 mg Tablet] 10 - 320 mg PO DAILY 12/03/17 Acetaminophen [Tylenol .Regular Strength -] 650 mg PO Q4H PRN tablet 12/04/17 Atorvastatin Ca [Lipitor] 20 mg PO DAILY 05/25/18 Ibandronate Sodium [Boniva] 150 mg PO DAILY 05/25/18 Omeprazole 40 mg PO DAILY 05/25/18 metFORMIN HCL [Metformin HCl] 500 mg PO DAILY 05/25/18 Azithromycin [Zithromax Tri-Levon (3 DAYS) -] 500 mg PO DAILY #3 tablet 07/21/18 Benzonatate [Tessalon Pearls -] 100 mg PO TID PRN #21 capsule 07/21/18 Mag Hydrox/Al Hydrox/Simeth [Mylanta Suspension -] 30 ml PO Q6H PRN #1 bottle 05/25/19 Metoclopramide HCl [Reglan -] 10 mg PO TID PRN #12 tablet 05/25/19 Family Medical History Family History: Denies Review of Systems - Review of Systems Constitutional: denies: Chills, Fever Cardiovascular: reports: Shortness of Breath. denies: Chest Pain, Palpitations Respiratory: reports: SOB. denies: Cough, Hemoptysis, Orthopnea, PND Gastrointestinal: reports: Abdominal Pain. denies: Constipation, Diarrhea, Melena, Nausea, Rectal Bleeding, Vomiting Neurological: denies: Dizziness, Headache, Seizure, Syncope Vital Signs: Vital Signs Temperature 98.5 F 01/12/20 06:00 Pulse Rate 89 01/12/20 06:00 Respiratory Rate 17 01/12/20 06:00 Blood Pressure 147/94 01/12/20 06:00 O2 Sat by Pulse Oximetry (%) 97 01/12/20 06:10 HENT: Yes: Atraumatic Neck: Yes: Supple Respiratory: Yes: CTA Bilaterally Gastrointestinal: Yes: Normal Bowel Sounds, Soft. No: Tenderness Cardiovascular: Yes: Regular Rate and Rhythm JVD: No Carotid Bruit: Yes PMI: Non-Displaced Heart Sounds: Yes: S1, S2 Murmur: Yes: Systolic Murmur (2/6 HUMZA), Grade 2 Edema: No - Other Data Labs, Other Data: CBC, BMP 01/12/20 09:12 01/12/20 09:12 INR, PTT INR 0.93 (0.83-1.09) 01/11/20 23:10 Troponin, BNP 01/11/20 01/11/20 01/12/20 23:10 23:10 09:12 Troponin I < 0.02 < 0.02 B-Natriuretic Peptide 2005.4 H 01/12/20 09:12 Troponin I < 0.02 B-Natriuretic Peptide Laboratory Results - last 24 hr 01/11/20 01/11/20 01/11/20 21:30 22:16 22:30 WBC RBC Hgb Hct MCV MCH MCHC RDW Plt Count MPV Absolute Neuts (auto) Neutrophils % Lymphocytes % Monocytes % Eosinophils % Basophils % Nucleated RBC % PT with INR INR Sodium Potassium Chloride Carbon Dioxide Anion Gap BUN Creatinine Est GFR (CKD-EPI)AfAm Est GFR (CKD-EPI)NonAf POC Glucometer 105 Random Glucose Calcium Magnesium Total Bilirubin AST ALT Alkaline Phosphatase Creatine Kinase Troponin I B-Natriuretic Peptide Total Protein Albumin Lipase Urine Color Yellow Urine Appearance Clear Urine pH 6.0 Ur Specific [place] 1.008 L Urine Protein Negative Urine Glucose (UA) Negative Urine Ketones Negative Urine Blood Negative Urine Nitrite Negative Urine Bilirubin Negative Urine Urobilinogen 1.0 Ur Leukocyte Esterase Negative Stool Occult Blood Negative Blood Type Antibody Screen 01/11/20 01/11/20 01/11/20 23:10 23:10 23:10 WBC 9.6 RBC 4.40 Hgb 12.2 Hct 37.3 D MCV 84.7 MCH 27.6 MCHC 32.6 RDW 17.9 H Plt Count 238 MPV 9.1 Absolute Neuts (auto) 7.4 Neutrophils % 77.5 D Lymphocytes % 14.2 D Monocytes % 5.1 Eosinophils % 2.5 Basophils % 0.7 Nucleated RBC % 0 PT with INR 11.00 INR 0.93 Sodium 142 Potassium 4.4 Chloride 106 Carbon Dioxide 25 Anion Gap 11 BUN 19.6 H Creatinine 1.1 Est GFR (CKD-EPI)AfAm 57.68 Est GFR (CKD-EPI)NonAf 49.77 POC Glucometer Random Glucose 121 H Calcium 9.3 Magnesium 2.0 Total Bilirubin 0.4 AST 24 ALT 14 Alkaline Phosphatase 164 H Creatine Kinase 76 Troponin I < 0.02 B-Natriuretic Peptide Total Protein 7.3 Albumin 3.5 Lipase 193 Urine Color Urine Appearance Urine pH Ur Specific [place] Urine Protein Urine Glucose (UA) Urine Ketones Urine Blood Urine Nitrite Urine Bilirubin Urine Urobilinogen Ur Leukocyte Esterase Stool Occult Blood Blood Type Antibody Screen 01/11/20 01/11/20 01/12/20 23:10 23:10 09:12 WBC 7.3 RBC 4.44 Hgb 12.1 Hct 37.3 MCV 84.1 MCH 27.2 MCHC 32.4 RDW 18.2 H Plt Count 237 MPV 8.6 Absolute Neuts (auto) 5.2 Neutrophils % 72.1 Lymphocytes % 17.1 D Monocytes % 6.9 Eosinophils % 3.4 Basophils % 0.5 Nucleated RBC % 0 PT with INR INR Sodium Potassium Chloride Carbon Dioxide Anion Gap BUN Creatinine Est GFR (CKD-EPI)AfAm Est GFR (CKD-EPI)NonAf POC Glucometer Random Glucose Calcium Magnesium Total Bilirubin AST ALT Alkaline Phosphatase Creatine Kinase Troponin I B-Natriuretic Peptide 2005.4 H Total Protein Albumin Lipase Urine Color Urine Appearance Urine pH Ur Specific [place] Urine Protein Urine Glucose (UA) Urine Ketones Urine Blood Urine Nitrite Urine Bilirubin Urine Urobilinogen Ur Leukocyte Esterase Stool Occult Blood Blood Type AB NEGATIVE Antibody Screen Negative 01/12/20 01/12/20 09:12 09:12 WBC RBC Hgb Hct MCV MCH MCHC RDW Plt Count MPV Absolute Neuts (auto) Neutrophils % Lymphocytes % Monocytes % Eosinophils % Basophils % Nucleated RBC % PT with INR INR Sodium 142 Potassium 3.8 Chloride 103 Carbon Dioxide 29 Anion Gap 9 BUN 15.5 Creatinine 1.1 Est GFR (CKD-EPI)AfAm 57.68 Est GFR (CKD-EPI)NonAf 49.77 POC Glucometer Random Glucose 132 H Calcium 9.0 Magnesium 2.0 Total Bilirubin 0.7 AST 20 ALT 16 Alkaline Phosphatase 134 H Creatine Kinase Troponin I < 0.02 < 0.02 B-Natriuretic Peptide Total Protein 7.4 Albumin 3.6 Lipase Urine Color Urine Appearance Urine pH Ur Specific [place] Urine Protein Urine Glucose (UA) Urine Ketones Urine Blood Urine Nitrite Urine Bilirubin Urine Urobilinogen Ur Leukocyte Esterase Stool Occult Blood Blood Type Antibody Screen Sinus rhythm with incomplete LBBB, ST abnormalities Imaging - Results Chest X-ray: Report Reviewed (Congestive changes) EKG: Report Reviewed Problem List - Problems (1) Hypercholesterolemia Code(s): E78.00 - PURE HYPERCHOLESTEROLEMIA, UNSPECIFIED (2) Generalized weakness Code(s): R53.1 - WEAKNESS (3) HTN (hypertension) Code(s): I10 - ESSENTIAL (PRIMARY) HYPERTENSION (4) Paroxysmal A-fib Code(s): I48.0 - PAROXYSMAL ATRIAL FIBRILLATION (5) Acute on chronic diastolic (congestive) heart failure Code(s): I50.33 - ACUTE ON CHRONIC DIASTOLIC (CONGESTIVE) HEART FAILURE (6) CHF (congestive heart failure) Code(s): I50.9 - HEART FAILURE, UNSPECIFIED Qualifiers: Heart failure type: unspecified Heart failure chronicity: acute Qualified Code(s): I50.9 - Heart failure, unspecified (7) Type 2 diabetes mellitus Code(s): E11.9 - TYPE 2 DIABETES MELLITUS WITHOUT COMPLICATIONS Assessment/Plan 1. Generalized weakness 2. PAF on DOAC ([id number] score of 7-8) 3. HTN 4. Hypercholesterolemia 5. NIDDM 6. Hyperparathyroidism 7. Lacunar infarct 8. /AR PLAN: 1. Continue Valsartan 320 mg QD and Amlodipine 10 mg QD (on Exforge) 2. Continue Atorvastatin 20 mg QHS 3. Eliquis 5 mg BID 4. Diuretics - IV Lasix and monitor renal function and electrolytes. On Bumex 1 mg BID as outpatient 5. Continue Metoprolol Tartrate 50 mg BID 6. DM management (Jentadueto 2.5-500 mg QD and Metformin 500 mg QD) 7. Consider echocardiography to assess LV/RV and valvular function Further plans are to follow Follow up with Dr. Yobani Hodge [facility] upon discharge Devonte Cobian MD
[2020-01-12] MEDS ORDERED: FUROSEMIDE 20 MG TABLET (FP) PO SCH (14:00)
[2020-01-12] MEDS ORDERED: INSULIN SLIDING SCALE (NOVOLOG) 1 VIAL SQ SCH (16:30)
[2020-01-12] MEDS: INSULIN SLIDING SCALE (NOVOLOG) 1 VIAL SQ SCH ×2 (17:33→21:13)
--- NOTE | 2020-01-12 18:08 | EKG ---
Test Reason : Blood Pressure : / mmHG Vent. Rate : 061 BPM Atrial Rate : 061 BPM P-R Int : 260 ms QRS Dur : 106 ms QT Int : 490 ms P-R-T Axes : 041 018 096 degrees QTc Int : 493 ms SINUS RHYTHM WITH 1ST DEGREE A-V BLOCK LEFT VENTRICULAR HYPERTROPHY WITH QRS WIDENING AND REPOLARIZATION ABNORMALITY LEFT VENTRICULAR HYPERTROPHY WITH REPOLARIZATION ABNORMALITY PROLONGED QT ABNORMAL ECG Confirmed by MD LIO, SHARRON ([id number]) on 01/12/2020 6:08:23 PM Referred By: Confirmed By:SHARRON VACA MD
[2020-01-12] MEDS ORDERED: MAG HYDROX/AL HYDROX/SIMETH 30 ML UNIT-DOSE CUP ONE (19:46)
[2020-01-12] MEDS ORDERED: ATORVASTATIN CA 20 MG TABLET (FP) ONE (21:03)
[2020-01-12] MEDS ORDERED: DONEPEZIL HCL 5 MG TABLET (FP) ONE (21:03)
[2020-01-12] MEDS ORDERED: ATORVASTATIN CA 20 MG TABLET (FP) PO SCH (22:00)
[2020-01-12] MEDS ORDERED: DONEPEZIL HCL 10 MG TABLET (FP) PO SCH (22:00)
[2020-01-12] MEDS ORDERED: ZOLPIDEM TARTRATE 5 MG TABLET PO PRN (22:00)
[2020-01-13 07:48] LABS: BASO % 0.5 % (0-2.0); EOS % 4.4 % (0-4.5); HEMATOCRIT 37.1 % (32.4-45.2); HEMOGLOBIN 12.2 GM/dL (10.7-15.3); LYMPH % 20.5 % (8-40); MCH 27.3 pg (25.7-33.7); MCHC 32.8 g/dl (32.0-36.0); MEAN CELL VOLUME 83.4 fl (80-96); MEAN PLT VOLUME 8.4 fl (7.5-11.1); MONO % 8.2 % (3.8-10.2); NEUT % 66.4 % (42.8-82.8); PLATELET COUNT 234 K/MM3 (134-434); RBC 4.46 M/mm3 (3.60-5.2); RDW 17.5 % (11.6-15.6)
[2020-01-13 08:18] LABS: ALBUMIN 3.4 g/dl (3.4-5.0); BILIRUBIN,TOTAL 0.6 mg/dL (0.2-1); BLOOD UREA NITROGEN 18.8 mg/dL (7-18); CALCIUM 8.6 mg/dL (8.5-10.1); CREATININE 1.2 mg/dL (0.55-1.3); TOT PROT 6.9 g/dl (6.4-8.2)
[2020-01-13] MEDS ORDERED: APIXABAN 5 MG TABLET ONE (08:48)
[2020-01-13] MEDS ORDERED: PANTOPRAZOLE 40 MG TABLET ONE (08:48)
[2020-01-13] MEDS ORDERED: amLODIPine BESYLATE 5 MG TABLET (FP) ONE (08:48)
[2020-01-13] MEDS ORDERED: FUROSEMIDE 40 MG/4 ML INJECTABLE VIAL ONE (08:49)
[2020-01-13] MEDS ORDERED: LORATADINE 10 MG TABLET ONE (08:49)
[2020-01-13] MEDS ORDERED: METOPROLOL TARTRATE 50 MG TABLET (FP) ONE (08:49)
[2020-01-13] MEDS: INSULIN SLIDING SCALE (NOVOLOG) 1 VIAL SQ SCH ×2 (08:56→11:23)
[2020-01-13] MEDS: VALSARTAN 160 MG TABLET (UD) PO SCH (09:01)
[2020-01-13] MEDS: APIXABAN 5 MG TABLET PO SCH (09:01)
[2020-01-13] MEDS: PANTOPRAZOLE 20 MG TABLET PO SCH (09:01)
[2020-01-13] MEDS: amLODIPine BESYLATE 10 MG TABLET (FP) PO SCH (09:01)
[2020-01-13] MEDS: FUROSEMIDE 40 MG/4 ML INJECTABLE VIAL IVPUSH SCH (09:01)
[2020-01-13] MEDS: LORATADINE 10 MG TABLET PO SCH (09:01)
[2020-01-13] MEDS: METOPROLOL TARTRATE 50 MG TABLET (FP) PO SCH (09:01)
--- NOTE | 2020-01-13 09:02 | PN ---
Progress Note, Physician History of Present Illness: Generalized weakness and fatigue resolved, denies chest pain or dyspnea, ruled out for CT. - Current Medication List Current Medications: Active Medications Acetaminophen (Tylenol -) 650 mg PO Q6H PRN PRN Reason: PAIN LEVEL 6-10 Last Admin: 01/12/20 17:34 Dose: 650 mg Documented by: Al Hydroxide/Mg Hydroxide (Mylanta Suspension -) 30 ml PO Q6H PRN PRN Reason: heartburn Last Admin: 01/12/20 19:48 Dose: 30 ml Documented by: Amlodipine Besylate (Norvasc -) 10 mg PO DAILY [facility] Last Admin: 01/12/20 09:05 Dose: 10 mg Documented by: Apixaban (Eliquis -) 5 mg PO BID [facility] Last Admin: 01/12/20 21:13 Dose: 5 mg Documented by: Atorvastatin Calcium (Lipitor -) 20 mg PO HS [facility] Last Admin: 01/12/20 21:13 Dose: 20 mg Documented by: Donepezil HCl (Aricept -) 10 mg PO HS [facility] Last Admin: 01/12/20 21:13 Dose: 10 mg Documented by: Furosemide (Lasix Injection -) 40 mg IVPUSH DAILY [facility] Last Admin: 01/12/20 11:12 Dose: 40 mg Documented by: Insulin Aspart (Novolog Vial Sliding Scale -) 1 vial SQ [facility]; Protocol Last Admin: 01/13/20 08:56 Dose: Not Given Documented by: Loratadine (Claritin -) 10 mg PO DAILY [facility] Last Admin: 01/12/20 09:05 Dose: 10 mg Documented by: Metoclopramide HCl (Reglan -) 10 mg PO Q8H PRN PRN Reason: nausea vomiting Metoprolol Tartrate (Lopressor -) 50 mg PO BID [facility] Last Admin: 01/12/20 21:13 Dose: 50 mg Documented by: Pantoprazole Sodium (Protonix -) 40 mg PO DAILY [facility] Last Admin: 01/12/20 11:12 Dose: 40 mg Documented by: Valsartan (Diovan -) 320 mg PO DAILY [facility] Last Admin: 01/12/20 09:05 Dose: 320 mg Documented by: Zolpidem Tartrate (Ambien -) 5 mg PO HS PRN PRN Reason: INSOMNIA Last Admin: 01/12/20 21:20 Dose: 5 mg Documented by: - Objective Vital Signs: Vital Signs Temperature 98.1 F 01/13/20 05:58 Pulse Rate 67 01/13/20 05:58 Respiratory Rate 18 01/13/20 05:58 Blood Pressure 161/68 01/13/20 05:58 O2 Sat by Pulse Oximetry (%) 97 01/13/20 05:58 Constitutional: Yes: No Distress, Calm Neck: Yes: Supple Cardiovascular: Yes: Regular Rate and Rhythm, Murmur (2/6 SM) Respiratory: Yes: Regular, CTA Bilaterally Gastrointestinal: Yes: Normal Bowel Sounds, Soft, Abdomen, Obese Edema: No Labs: CBC, BMP 01/13/20 07:30 01/13/20 07:30 INR, PTT INR 0.93 (0.83-1.09) 01/11/20 23:10 Problem List - Problems (1) Generalized weakness Code(s): R53.1 - WEAKNESS (2) HTN (hypertension) Code(s): I10 - ESSENTIAL (PRIMARY) HYPERTENSION Qualifiers: Hypertension type: essential hypertension Qualified Code(s): I10 - Essential (primary) hypertension (3) Hypercholesterolemia Code(s): E78.00 - PURE HYPERCHOLESTEROLEMIA, UNSPECIFIED (4) Paroxysmal A-fib Code(s): I48.0 - PAROXYSMAL ATRIAL FIBRILLATION (5) Acute on chronic diastolic (congestive) heart failure Code(s): I50.33 - ACUTE ON CHRONIC DIASTOLIC (CONGESTIVE) HEART FAILURE (6) Chronic anticoagulation Code(s): Z79.01 - SENIOR RESEARCH ENGINEER (CURRENT) USE OF ANTICOAGULANTS (7) Hyperlipidemia associated with type 2 diabetes mellitus Code(s): E11.69 - TYPE 2 DIABETES MELLITUS WITH OTHER SPECIFIED COMPLICATION; E78.5 - HYPERLIPIDEMIA, UNSPECIFIED (8) Hypertensive cardiomegaly with heart failure Code(s): I11.0 - HYPERTENSIVE HEART DISEASE WITH HEART FAILURE (9) Mild aortic stenosis by prior echocardiogram Code(s): I35.0 - NONRHEUMATIC AORTIC (VALVE) STENOSIS (10) Paroxysmal atrial flutter Code(s): I48.92 - UNSPECIFIED ATRIAL FLUTTER (11) Type 2 diabetes mellitus Code(s): E11.9 - TYPE 2 DIABETES MELLITUS WITHOUT COMPLICATIONS (12) Mild aortic stenosis Code(s): I35.0 - NONRHEUMATIC AORTIC (VALVE) STENOSIS Assessment/Plan remote nl caths and normal MIBI 09/02 -MIBI nl again 03/08 after atyp sxs - sxs of early 2012 quiescent but ECG changes were noteworthy - MIBI nl again 01/08 - no current chest pain at moderate activity level and MIBI 10/12 again low risk 1. Generalized weakness and fatigue resolved 2. PAF on DOAC ([id number] score of 7-8) 3. HTN 4. Hypercholesterolemia 5. NIDDM 6. Hyperparathyroidism 7. Lacunar infarct 8. Diastolic dysfunction with /AR - mild by echo 09/02 and also by echo 09/03 - mild by echo 11/04 and 01/05, 03/08 and by exam - mild again by echo 08/08 and mild by echo 10/09 and 08/11 - by echo 09/13 is moderate - 10/14 mild with velocity 2.4 9. Aortic dilation - mild 3.8 by echo 08/11 and 4 cm by echo 09/13 - 3.7 by report from November [address] at [facility] - 3.9 by echo here 10/14 10. PH - 40's by echo 08/11 - 50's by echo 09/13 and 37 by echo 10/14 PLAN: 1. Continue Valsartan 320 mg QD and Amlodipine 10 mg QD (on Exforge) 2. Continue Atorvastatin 20 mg QHS 3. Eliquis 5 mg BID 4. Decrease Lasix 40 qd as outpatient and monitor diuretic response, renal function and electrolytes. 5. Continue Metoprolol Tartrate 50 mg BID 6. DM management (Jentadueto 2.5-500 mg QD and Metformin 500 mg QD) 7. F/u results echocardiography to assess LV/RV and valvular function, ruled out for CT 8. May discharge with follow-up with Dr. Yobani Hodge, [facility] upon discharge, last office visit 11/14/2019
[2020-01-13 11:56] VITALS: BP 150/80; PULSE 72; TEMP 98
--- NOTE | 2020-01-13 12:12 | ECHO ---
Name: MATTHEW MANNING Exam:Adult Echocardiogram Study Date: 01/13/2020 07:51 AM Age: 75 yrs Reason For Study: CHF Height: 64 in Weight: 218 lb BSA: 2.0 m2 MMode/2D Measurements & Calculations IVSd: 1.1 cm Ao root diam: 2.7 cm LVIDd: 3.9 cm LA dimension: 3.5 cm LVIDs: 2.5 cm LVPWd: 1.0 cm EDV(Teich): 65.9 ml LVOT diam: 2.0 cm ESV(Teich): 22.7 ml LAV (MOD-bp): 90.4 ml Doppler Measurements & Calculations MV E max kenneth: 96.7 cm/sec Ao V2 max: 227.0 cm/sec MV A max kenneth: 42.8 cm/sec Ao max P.7 mmHg MV E/A: 2.3 Ao V2 mean: 153.3 cm/sec MV dec time: 0.14 sec Ao mean P.0 mmHg Ao V2 VTI: 57.5 cm MYRA(I,D): 1.5 cm2 AI P1/2t: 568.0 msec MYRA(V,D): 1.4 cm2 AI max kenneth: 487.0 cm/sec LV V1 max P.4 mmHg AI max P.9 mmHg LV V1 mean P.5 mmHg AI dec slope: 251.1 cm/sec2 LV V1 max: 104.7 cm/sec LV V1 mean: 74.4 cm/sec LV V1 VTI: 27.5 cm MR max kenneth: 340.3 cm/sec SV(LVOT): 84.5 ml MR max P.3 mmHg TR max kenneth: 194.1 cm/sec PA V2 max: 96.5 cm/sec TR max P.1 mmHg PA max P.7 mmHg Med Peak E' Kenneth: 4.6 cm/sec Med E/e': 21.2 Lat Peak E' Kenneth: 7.4 cm/sec Lat E/e': 13.1 Procedure A complete two-dimensional transthoracic echocardiogram was performed (2D, M-mode, Doppler and color flow Doppler). Left Ventricle The left ventricle is normal in size. Left ventricular systolic function is normal. Ejection Fraction = 60- 65%. Diastolic dysfunction, Grade II, consistent with elevated left atrial pressure. No regional wall motion abnormalities noted. Right Ventricle The right ventricle is normal size. The right ventricular systolic function is normal. Atria The left atrium is mildly dilated. Right atrial size is normal. Mitral Valve There is mild mitral valve thickening. There is mild mitral regurgitation. Tricuspid Valve The tricuspid valve is normal in structure and function. There is mild tricuspid regurgitation. Right ventricular systolic pressure is normal. Aortic Valve There is moderate aortic sclerosis.;. Mild valvular aortic stenosis. The calculated aortic valve area using the continuity equation is 1.4 cm2. Aortic mean pressure gradient= 12 mmHg. DI (dimensionless index) is estimated 0.45. Mild aortic regurgitation. Pulmonic Valve The pulmonic valve is not well visualized. Great Vessels The aortic root is normal size. Pericardium/Pleura There is no pericardial effusion. Interpretation Summary The left ventricle is normal in size. Left ventricular systolic function is normal. No regional wall motion abnormalities noted. Ejection Fraction = 60-65%. Diastolic dysfunction, Grade II, consistent with elevated left atrial pressure. The right ventricular systolic function is normal. The left atrium is mildly dilated. Right atrial size is normal. There is mild mitral valve thickening. There is mild mitral regurgitation. There is mild tricuspid regurgitation. There is moderate aortic sclerosis. Mild valvular aortic stenosis. The calculated aortic valve area using the continuity equation is 1.4 cm2. Aortic mean pressure gradient= 12 mmHg DI (dimensionless index) is estimated 0.45 Mild aortic regurgitation. There is no pericardial effusion. Devonte Cobian MD 01/13/2020 12:12 PM
--- NOTE | 2020-01-13 12:20 | PN ---
Teaching Attending Note Name of Resident: Sedrick Mosquera ATTENDING PHYSICIAN STATEMENT I saw and evaluated the patient. I reviewed the resident's note and discussed the case with the resident. I agree with the resident's findings and plan as documented. SUBJECTIVE: Patient seen and examined at bedside, seen by Cardiology and cleared for DC w/ OP Cardiology follow up @ [facility]. Denies CP/SOB, wants to go home, VSS. OBJECTIVE: GA comfortable, AAox3, ambulating HEENT NC/AT, EOMI, trace JVD, neck supple CHest Good air entry b/l, CTAB CVS s1, S2+, HUMZA+ Abd SOft, NT, ND, BS+ Ext No LE edema, no calf tenderness Vital Signs - 24 hr 01/12/20 01/12/20 01/13/20 16:41 21:14 05:58 Temperature 98.1 F Pulse Rate Pulse Rate [ 60 62 67 Left] Respiratory 20 18 18 Rate Blood Pressure Blood Pressure 135/67 178/68 H 161/68 [Left Arm] O2 Sat by Pulse 95 99 97 Oximetry (%) 01/13/20 09:00 Temperature 98 F Pulse Rate 72 Pulse Rate [ Left] Respiratory 16 Rate Blood Pressure 150/80 Blood Pressure [Left Arm] O2 Sat by Pulse Oximetry (%) Microbiology 01/11/20 22:30 Urine - Urine Clean Catch Urine Culture - Final Lactose Fermenting Neg Bacilli Laboratory Results - last 24 hr 01/12/20 01/12/20 01/12/20 02:48 17:28 20:56 WBC RBC Hgb Hct MCV MCH MCHC RDW Plt Count MPV Absolute Neuts (auto) Neutrophils % Lymphocytes % Monocytes % Eosinophils % Basophils % Nucleated RBC % Sodium Potassium Chloride Carbon Dioxide Anion Gap BUN Creatinine Est GFR (CKD-EPI)AfAm Est GFR (CKD-EPI)NonAf POC Glucometer 108 122 Random Glucose Calcium Total Bilirubin AST ALT Alkaline Phosphatase Total Protein Albumin COVID-19 (CINDY) Not detected 01/13/20 01/13/20 01/13/20 07:30 07:30 11:03 WBC 7.0 RBC 4.46 Hgb 12.2 Hct 37.1 MCV 83.4 MCH 27.3 MCHC 32.8 RDW 17.5 H Plt Count 234 MPV 8.4 Absolute Neuts (auto) 4.7 Neutrophils % 66.4 Lymphocytes % 20.5 Monocytes % 8.2 Eosinophils % 4.4 Basophils % 0.5 Nucleated RBC % 0 Sodium 141 Potassium 4.0 Chloride 103 Carbon Dioxide 31 Anion Gap 7 L BUN 18.8 H Creatinine 1.2 Est GFR (CKD-EPI)AfAm 51.92 Est GFR (CKD-EPI)NonAf 44.80 POC Glucometer 124 Random Glucose 115 H Calcium 8.6 Total Bilirubin 0.6 AST 20 ALT 15 Alkaline Phosphatase 111 Total Protein 6.9 Albumin 3.4 COVID-19 (CINDY) Home Medications Medication Instructions Recorded Metoprolol Tartrate [Lopressor -] 50 mg PO BID 09/13/12 Zolpidem Tartrate [Ambien] 10 mg PO HS 09/13/12 Apixaban [Eliquis] 5 mg PO BID 02/13/15 Ergocalciferol (Vitamin D2) 50,000 unit PO WEEKLY 03/07/15 [Vitamin D] Donepezil HCl [Aricept] 10 mg PO DAILY 11/02/17 Linagliptin/Metformin HCl 1 each PO DAILY 11/02/17 [Jentadueto 2.5 mg-500 mg Tab] Loratadine [Claritin] 10 mg PO DAILY 11/02/17 Amlodipine/Valsartan [Exforge 10 - 320 mg PO DAILY 12/03/17 10-320 mg Tablet] Acetaminophen [Tylenol .Regular 650 mg PO Q4H PRN tablet 12/04/17 Strength -] Atorvastatin Ca [Lipitor] 20 mg PO DAILY 05/25/18 Ibandronate Sodium [Boniva] 150 mg PO DAILY 05/25/18 Omeprazole 40 mg PO DAILY 05/25/18 metFORMIN HCL [Metformin HCl] 500 mg PO DAILY 05/25/18 Azithromycin [Zithromax Tri-Levon (3 500 mg PO DAILY #3 tablet 07/21/18 DAYS) -] Benzonatate [Tessalon Pearls -] 100 mg PO TID PRN #21 capsule 07/21/18 Mag Hydrox/Al Hydrox/Simeth 30 ml PO Q6H PRN #1 bottle 05/25/19 [Mylanta Suspension -] Metoclopramide HCl [Reglan -] 10 mg PO TID PRN #12 tablet 05/25/19 Albuterol Sulfate Inhaler - 1 puff IH PRN PRN 01/13/20 [Ventolin HFA Inhaler -] Citalopram Hydrobromide 20 mg PO DAILY 01/13/20 [Citalopram HBr] Ferrous Gluconate [Fergon -] 324 mg PO DAILY 01/13/20 Current Medications Generic Name Dose Route Start Last Admin Trade Name Freq PRN Reason Stop Dose Admin Acetaminophen 650 mg 01/12/20 12:01 01/12/20 17:34 Tylenol - PO 650 mg Q6H PRN Administration PAIN LEVEL 6-10 Al Hydroxide/Mg Hydroxide 30 ml 01/12/20 06:42 01/12/20 19:48 Mylanta Suspension - PO 30 ml Q6H PRN Administration heartburn Amlodipine Besylate 10 mg 01/12/20 10:00 01/13/20 09:01 Norvasc - PO 10 mg DAILY [facility] Administration Apixaban 5 mg 01/12/20 10:00 01/13/20 09:01 Eliquis - PO 5 mg BID [facility] Administration Atorvastatin Calcium 20 mg 01/12/20 22:00 01/12/20 21:13 Lipitor - PO 20 mg HS [facility] Administration Donepezil HCl 10 mg 01/12/20 22:00 01/12/20 21:13 Aricept - PO 10 mg HS [facility] Administration Furosemide 40 mg 01/12/20 10:00 01/13/20 09:01 Lasix Injection - IVPUSH 40 mg DAILY [facility] Administration Insulin Aspart 1 vial 01/12/20 16:30 01/13/20 11:23 Novolog Vial Sliding Scale - SQ Not Given ACHS [facility] Protocol Loratadine 10 mg 01/12/20 10:00 01/13/20 09:01 Claritin - PO 10 mg DAILY [facility] Administration Metoclopramide HCl 10 mg 01/12/20 09:19 Reglan - PO Q8H PRN nausea vomiting Metoprolol Tartrate 50 mg 01/12/20 10:00 01/13/20 09:01 Lopressor - PO 50 mg BID [facility] Administration Pantoprazole Sodium 40 mg 01/12/20 10:00 01/13/20 09:01 Protonix - PO 40 mg DAILY [facility] Administration Valsartan 320 mg 01/12/20 10:00 01/13/20 09:01 Diovan - PO 320 mg DAILY [facility] Administration Zolpidem Tartrate 5 mg 01/12/20 22:00 01/12/20 21:20 Ambien - PO 5 mg HS PRN Administration INSOMNIA ASSESSMENT AND PLAN: 75 F Stable angina, CT ruled out CAD HTN HLD Asymptomatic bacturia GERD T2Dm Mild dementia Afib on AC Plan: Cont. BP meds, AC CT ruled out Spoke with patient regarding close follow up w/ her OP Director Operating Room at [facility], also discussed return parameters to go to ED if feels CP/SOB/dizziness/syncope. Reinforce med compliance, DASH diet Lasix 40mg PO daily as OP, follow w/ PMD/Cardiology DC home
--- NOTE | 2020-01-13 12:33 | DS ---
Physical Exam: SUBJECTIVE: Patient seen and examined. No acute events. OBJECTIVE: Vital Signs Period Temp Pulse Resp BP Sys/Daugherty Pulse Ox Last 24 Hr 98 F-98.1 F 60-72 16-20 135-178/67-80 95-99 PHYSICAL EXAM GENERAL: The patient is awake, alert, and fully oriented, in no acute distress. HEAD: Normal with no signs of trauma. EYES: PERRL, extraocular movements intact, sclera anicteric, conjunctiva clear. ENT: Ears normal, nares patent, oropharynx clear without exudates, moist mucous membranes. NECK: Trachea midline, full range of motion, supple. LUNGS: Breath sounds equal, clear to auscultation bilaterally, no wheezes, no crackles, no accessory muscle use. HEART: Regular rate and rhythm, S1, S2 without murmur, rub or gallop. ABDOMEN: Soft, nontender, nondistended, normoactive bowel sounds, no guarding, no rebound, no hepatosplenomegaly, no masses. EXTREMITIES: 2+ pulses, warm, well-perfused, no edema. NEUROLOGICAL: Cranial nerves II through XII grossly intact. Normal speech, gait not observed. PSYCH: Normal mood, normal affect. SKIN: Warm, dry, normal turgor, no rashes or lesions noted. LABS Laboratory Results - last 24 hr 01/12/20 01/12/20 01/12/20 02:48 17:28 20:56 WBC RBC Hgb Hct MCV MCH MCHC RDW Plt Count MPV Absolute Neuts (auto) Neutrophils % Lymphocytes % Monocytes % Eosinophils % Basophils % Nucleated RBC % Sodium Potassium Chloride Carbon Dioxide Anion Gap BUN Creatinine Est GFR (CKD-EPI)AfAm Est GFR (CKD-EPI)NonAf POC Glucometer 108 122 Random Glucose Calcium Total Bilirubin AST ALT Alkaline Phosphatase Total Protein Albumin COVID-19 (CINDY) Not detected 01/13/20 01/13/20 01/13/20 07:30 07:30 11:03 WBC 7.0 RBC 4.46 Hgb 12.2 Hct 37.1 MCV 83.4 MCH 27.3 MCHC 32.8 RDW 17.5 H Plt Count 234 MPV 8.4 Absolute Neuts (auto) 4.7 Neutrophils % 66.4 Lymphocytes % 20.5 Monocytes % 8.2 Eosinophils % 4.4 Basophils % 0.5 Nucleated RBC % 0 Sodium 141 Potassium 4.0 Chloride 103 Carbon Dioxide 31 Anion Gap 7 L BUN 18.8 H Creatinine 1.2 Est GFR (CKD-EPI)AfAm 51.92 Est GFR (CKD-EPI)NonAf 44.80 POC Glucometer 124 Random Glucose 115 H Calcium 8.6 Total Bilirubin 0.6 AST 20 ALT 15 Alkaline Phosphatase 111 Total Protein 6.9 Albumin 3.4 COVID-19 (CINDY) HOSPITAL COURSE: Date of Admission:01/12/20 Date of Discharge: 01/13/20 Pt. is a 75 y.o. F presenting with chest pain. Pt. monitored on telemetry without events. Pt. seen by Cardiology and had Echo which showed Grade II diastolic dysfunction. Pt. cleared to be discharged home with follow up as detailed below. Minutes to complete discharge: 20 Discharge Summary Problems reviewed: Yes Reason For Visit: CONGESTIVE HEART FAILURE Current Active Problems Encounter for screening laboratory testing for COVID-19 virus (Acute) Generalized weakness (Acute) HTN (hypertension) (Acute) Hypercholesterolemia (Acute) Mild aortic stenosis (Acute) Paroxysmal A-fib (Acute) - Instructions Diet, Activity, Other Instructions: You came in for weakness and abdominal pain. You were seen by Cardiology service and they found you were not having a heart attack. Please take all your blood pressure medications everyday. You were also started on Lasix 40mg daily, please follow up with your outpatient Inclusion Paraeducator Dr. Hilton at [place] and your primary care doctor. If you feel shortness of breath, chest pain, dizziness, loss of consciousness, vision changes, loss of balance, fall please go to ED immediately. Referrals: ON STAFF,NOT [Non Staff, Medical] - 1 Week Disposition: HOME - Home Medications Comprehensive Discharge Medication List: Ambulatory Orders Metoprolol Tartrate [Lopressor -] 50 mg PO BID 09/13/12 Zolpidem Tartrate [Ambien] 10 mg PO HS 09/13/12 Apixaban [Eliquis] 5 mg PO BID 02/13/15 Ergocalciferol (Vitamin D2) [Vitamin D] 50,000 unit PO WEEKLY 03/07/15 Donepezil HCl [Aricept] 10 mg PO DAILY 11/02/17 Linagliptin/Metformin HCl [Jentadueto 2.5 mg-500 mg Tab] 1 each PO DAILY 11/02/17 Loratadine [Claritin] 10 mg PO DAILY 11/02/17 Amlodipine/Valsartan [Exforge 10-320 mg Tablet] 10 - 320 mg PO DAILY 12/03/17 Atorvastatin Ca [Lipitor] 20 mg PO DAILY 05/25/18 Ibandronate Sodium [Boniva] 150 mg PO DAILY 05/25/18 Omeprazole 40 mg PO DAILY 05/25/18 Albuterol Sulfate Inhaler - [Ventolin HFA Inhaler -] 1 puff IH PRN PRN 01/13/20 Citalopram Hydrobromide [Citalopram HBr] 20 mg PO DAILY 01/13/20 Ferrous Gluconate [Fergon -] 324 mg PO DAILY 01/13/20 Furosemide [Lasix] 40 mg PO DAILY #30 tablet 01/13/20 Linaclotide [Linzess] 72 mcg PO DAILY 01/13/20 This patient is new to me today: No Emergency Visit: Yes ED Registration Date: 01/12/20 Care time: The patient presented to the Emergency Department on the above date and was hospitalized for further evaluation of their emergent condition. Critical Care patient: No - Discharge Referral Referred to [facility] Med P.C.: No ATTENDING PHYSICIAN STATEMENT I saw and evaluated the patient. I reviewed the resident's note and discussed the case with the resident. I agree with the resident's findings and plan as documented. SUBJECTIVE: OBJECTIVE: ASSESSMENT AND PLAN:
== END 2020-01-13 12:53 | disposition home or self-care (01) | DRG 293 ==
LOC: JER 20:54 → JERBED 01-12 01:07
PROVIDERS: ADMIT Internal Medicine
DX: I11.0 Hypertensive heart disease with heart failure (principal); I48.0 Paroxysmal atrial fibrillation; I50.33 Acute on chronic diastolic (congestive) heart failure; I25.10 Atherosclerotic heart disease of native coronary artery without angina pectoris; E11.9 Type 2 diabetes mellitus without complications; E66.9 Obesity, unspecified; Z68.37 Body mass index [BMI] 37.0-37.9, adult; R53.1 Weakness; I35.0 Nonrheumatic aortic (valve) stenosis; E78.5 Hyperlipidemia, unspecified; K21.9 Gastro-esophageal reflux disease without esophagitis; F03.90 Unspecified dementia, unspecified severity, without behavioral disturbance, psychotic disturbance, mood disturbance, and anxiety; R10.9 Unspecified abdominal pain
CPT/HCPCS: 36415; 71045-TC-FY; 80053; 81003; 82272; 82550; 82962; 83690; 83735; 83880; 84484; 85025; 85610; 86850; 86900; 86901; 87077; 87086; 93005; 93010; 93306-TC; 99285-25; J0131; U0003